=== PATIENT | female | born 1960 | race Caucasian/White ===

== ENCOUNTER 2018-05-05 13:24 | Emergency (ER) | payer OTHER ==
--- OUTSIDE RECORDS SUMMARY | 2018-05-05 13:26 | XMS REPORT ---
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 Problem Tinea unguium B35.1 Active Assessment Memory changes R41.3 Active Assessment Dysthymic disorder F34.1 Active Problem Age-related nuclear cataract of both H25.13 Active eyes Problem Hematuria, microscopic R31.29 Active Problem Memory changes R41.3 Active Problem Essential (primary) hypertension I10 Active Problem Dysthymic disorder F34.1 Active Problem Type 2 diabetes mellitus without E11.9 Active complication, 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 Problem Other insomnia 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.09 Active substance or known physiological condition Medications Medication Code Code Instructions Start End Status Dosage System Date Date Trulicity [facility] [id number] 1.5 MG/0.5ML Jul 12May 06, Active 1.5 mg Subcutaneous 2015 2017 once weekly FreeStyle Lite [facility] [id number] - In Vitro once October Active as directed Test daily 2017 Sertraline HCl ND 32399906689 50 MG Orally October Active take one Once a day 2016 tablet by mouth daily Metformin HCl ND 92592510199 1000 MG Orally Sep 11, Active 1 tablet Twice a day 2015 with meals Farxiga ND 26171423962 10 MG Active TAKE ONE TABLET BY MOUTH EVERY MORNING Cymbalta ND 64320552740 60 Orally Once a Active take one day capsule by mouth daily Zestoretic ND 26328267079 20-12.5 Active TAKE ONE TABLET BY MOUTH DAILY Results No Known Results Summary Purpose eClinicalWorks Submission
--- OUTSIDE RECORDS SUMMARY | 2018-05-05 13:26 | XMS REPORT ---
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
--- OUTSIDE RECORDS SUMMARY | 2018-05-05 13:26 | XMS REPORT ---
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
--- OUTSIDE RECORDS SUMMARY | 2018-05-05 13:26 | XMS REPORT ---
:1960 Author Organization e[employer]Works Care Team Providers Name Role Phone PascoMiranda cárdenasy Provider Role Unavailable Allergies No Known Allergies Problems Problem Type Condition Code Onset Dates Condition Status Problem Tinea unguium B35.1 Active Problem Age-related nuclear cataract of both H25.13 Active eyes Problem Hematuria, microscopic R31.29 Active Problem Memory changes R41.3 Active Problem Essential (primary) hypertension I10 Active Problem Dysthymic disorder F34.1 Active Problem Type 2 diabetes mellitus without E11.9 Active complication, unspecified whether snf insulin use Problem Other insomnia 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.09 Active substance or known physiological condition Medications No Known Medications Results No Known Results Summary Purpose eClinicalWorks Submission
[2018-05-05] MEDS ORDERED: MORPHINE 4 MG/ML SYR ONE (13:59)
[2018-05-05] MEDS ORDERED: FAMOTIDINE 20 MG/2 ML VIAL IV ONE (13:59)
[2018-05-05] MEDS ORDERED: NA CHLORIDE 0.9% 1,000 ML ONE (13:59)
[2018-05-05] MEDS ORDERED: ONDANSETRON 4 MG/2 ML VIAL ONE ×2 (13:59→15:05)
[2018-05-05 14:19] LABS: Absolute Lymphocytes (CBC) 2.7 K/uL (0.7-4.9); Absolute Monocytes 0.8 K/uL (0.1-1.3); Absolute Neutrophil 11.9 K/uL (1.8-8.0); Basophils % 0.5 % (0-1.3); Eosinophils % 0.8 % (0-4.4); Hematocrit 47.8 % (36.0-45.0); Lymphocytes % 17.1 % (15.3-44.8); MCH 30.5 pg (27.0-35.0); MPV 11.5 fL (7.6-11.3); Monocytes % 5.2 % (3.3-12.3); RBC Red Blood Cell Count 5.25 M/uL (3.86-4.86)
[2018-05-05 14:41] LABS: Albumin 4.6 g/dL (3.4-5.0); Bilirubin Direct 0.3 mg/dL (0-0.2); Bilirubin Total 1.2 mg/dL (0.2-1.0); Potassium 3.8 mmol/L (3.5-5.1)
[2018-05-05] MEDS ORDERED: FENTANYL CITR 100 MCG/2 ML ONE (15:05)
[2018-05-05] MEDS ORDERED: Ciprofloxacin 200mg IV 200 MG/100 ML IV.SOLN. IV ONE (15:05)
[2018-05-05] MEDS ORDERED: METRONIDAZOLE 500mg IVPB 500 MG/100 ML BAG IV ONE (15:05)
[2018-05-05] MEDS ORDERED: PIPER/TAZO/NS 3.375gm 3.375 GM/100 ML BAG ONE (15:19)
--- NOTE | 2018-05-05 15:39 | RAD REPORT ---
EXAM DESCRIPTION: CTAbdomen Pelvis W Contrast - 05/05/2018 3:26 pm CLINICAL HISTORY: Abdominal pain. ABD PAIN COMPARISON: CT ABD PELVIS W CONTRAST dated 01/21/2015; CT ABD PELVIS W CONTRAST dated 11/02/2012 TECHNIQUE: Biphasic CT imaging of the abdomen and pelvis was performed with 100 ml non-ionic IV cont rast. All CT scans are performed using dose optimization technique as appropriate and may include automated exposure control or mA/KV adjustment according to patient size. FINDINGS: The lung bases are clear. Mild fatty liver is seen with nodular liver contour, likely representing cirrhosis. Cholecystectomy c lips are present. A few small esophageal varices are seen. The spleen, adrenal glands and kidneys are within normal limits. Pancreatic parenchyma is unremarkable. The common bile duct is mildly prominen t but unchanged. No bowel obstruction, free air, free fluid or abscess. Small fat containing ventral hernia. The appen zofia is normal. Moderate fecal retention in the colon. No evidence of significant lymphadenopathy. Moderate lower lumbar spondylosis. Small amount of air is seen in the wall of the bladder anteriorly, similar to 2015 comparative study. IMPRESSION: Mild liver cirrhosis. Moderate fecal retention in the colon. Small fat containing umbilical hernia.
[2018-05-05] MEDS ORDERED: NA CHLORIDE 0.9% 500 ML ONE (15:42)
[2018-05-05] MEDS ORDERED: METOCLOPRAMIDE 10 MG/2mL INJ ONE ×2 (15:42→17:08)
--- NOTE | 2018-05-05 16:52 | EDPHYS ---
Physician Documentation [facility] Name: Ester Akins Age: 58 yrs Sex: Female : 1960 Arrival Date: 05/05/2018 Time: 13:27 Bed 17 Private MD: Rafael Schafer ED Physician Sebastián Beavers HPI: 05/05 23:51 This 58 yrs old Female presents to ER via Wheelchair with complaints of kdr Nausea/Vomiting, Abdominal Pain. 23:51 The patient presents to the emergency department with nausea, that is moderate, that is kdr severe, vomiting, that is intermittent, abdominal pain, described as achy, crampy, intermittent. Onset: The symptoms/episode began/occurred suddenly, 3 day(s) ago. Possible causes: unknown. The symptoms are aggravated by pressure, food , The symptoms are alleviated by nothing. Associated signs and symptoms: Pertinent positives: abdominal pain, nausea, Pertinent negatives: anorexia, belching, constipation, flatulence, GI bleeding, hematuria, vaginal discharge. Severity of symptoms: At their worst the symptoms were severe in the emergency department the symptoms. The patient has not experienced similar symptoms in the past. The patient has not recently seen a physician. Historical: - Allergies: 13:34 No Known Allergies; aj - PMHx: 13:34 Diabetes - IDDM; aj - Immunization history:: Adult Immunizations up to date. - Social history:: Smoking status: unknown. - Ebola Screening: : Patient negative for fever greater than or equal to 101.5 degrees Fahrenheit, and additional compatible Ebola Virus Disease symptoms Patient denies exposure to infectious person Patient denies travel to an Ebola-affected area in the 21 days before illness onset No symptoms or risks identified at this time. ROS: 23:51 Constitutional: Negative for fever, chills, and weight loss, Eyes: Negative for injury, kdr pain, redness, and discharge, ENT: Negative for injury, pain, and discharge, Neck: Negative for injury, pain, and swelling, Cardiovascular: Negative for chest pain, palpitations, and edema, Respiratory: Negative for shortness of breath, cough, wheezing, and pleuritic chest pain, Back: Negative for injury and pain, : Negative for injury, bleeding, discharge, and swelling, MS/Extremity: Negative for injury and deformity, Skin: Negative for injury, rash, and discoloration, Neuro: Negative for headache, weakness, numbness, tingling, and seizure activity. Psych: Negative for depression, anxiety, suicide ideation, homicidal ideation, and hallucinations, Allergy/Immunology: Negative for hives, rash, and allergies, Endocrine: Negative for neck swelling, polydipsia, polyuria, polyphagia, and marked weight changes, Hematologic/Lymphatic: Negative for swollen nodes, abnormal bleeding, and unusual bruising. 23:51 Abdomen/GI: Positive for abdominal pain, nausea and vomiting, abdominal cramps. Exam: 23:51 Constitutional: This is a well developed, well nourished patient who is awake, alert, kdr and in moderate to severe distress. Head/Face: Normocephalic, atraumatic. Eyes: Pupils equal round and reactive to light, extra-ocular motions intact. Lids and lashes normal. Conjunctiva and sclera are non-icteric and not injected. Cornea within normal limits. Periorbital areas with no swelling, redness, or edema. Neck: Trachea midline, no thyromegaly or masses palpated, and no cervical lymphadenopathy. Supple, full range of motion without nuchal rigidity, or vertebral point tenderness. No Meningismus. Chest/axilla: Normal chest wall appearance and motion. Nontender with no deformity. No lesions are appreciated. Cardiovascular: Regular rate and rhythm with a normal S1 and S2. No gallops, murmurs, or rubs. Normal PMI, no JVD. No pulse deficits. Respiratory: Lungs have equal breath sounds bilaterally, clear to auscultation and percussion. No rales, rhonchi or wheezes noted. No increased work of breathing, no retractions or nasal flaring. Back: No spinal tenderness. No costovertebral tenderness. Full range of motion. Skin: Warm, dry with normal turgor. Normal color with no rashes, no lesions, and no evidence of cellulitis. MS/ Extremity: Pulses equal, no cyanosis. Neurovascular intact. Full, normal range of motion. Neuro: Awake and alert, GCS 15, oriented to person, place, time, and situation. Cranial nerves II-XII grossly intact. Motor strength 5/5 in all extremities. Sensory grossly intact. Cerebellar exam normal. Normal gait. Psych: Awake, alert, with orientation to person, place and time. Behavior, mood, and affect are within normal limits. 23:51 Abdomen/GI: Inspection: abdomen appears normal, scar(s), are noted in the suprapubic area. Vital Signs: 13:34 BP 147 / 107; Pulse 91; Resp 26; Temp 96.6; Pulse Ox 100% on R/A; Weight 83.91 kg; aj Height 5 ft. 8 in. (172.72 cm); 14:02 BP 133 / 91; Pulse 95; Resp 18; Pulse Ox 99% on R/A; em 15:00 BP 134 / 80; Pulse 96; Resp 19; Pulse Ox 97% on R/A; iw 16:38 BP 137 / 79; Pulse 107; Resp 18; Temp 98.1(O); Pulse Ox 100% on R/A; Pain 5/10; iw 17:56 BP 141 / 78; Pulse 97; Resp 16; Pulse Ox 100% on R/A; Pain 4/10; em 13:34 Body Mass Index 28.13 (83.91 kg, 172.72 cm) aj MDM: 16:51 Patient medically screened. kdr 23:51 Data reviewed: vital signs, nurses notes, lab test result(s), radiologic studies. kdr Counseling: I had a detailed discussion with the patient and/or guardian regarding: the historical points, exam findings, and any diagnostic results supporting the discharge/admit diagnosis, lab results, radiology results, the need for outpatient follow up. Special discussion: Based on the patient's Hx, exam, and Dx evaluation, there is no indication for emergent surgery or inpatient Tx. It is understood by the patient/guardian that if the Sx's persist or worsen they need to return immediately for re-evaluation. 05/05 13:52 Order name: Basic Metabolic Panel kdr 05/05 13:52 Order name: CBC with Diff; Complete Time: 14:52 kdr 05/05 13:52 Order name: Creatinine for Radiology; Complete Time: 14:52 kdr 05/05 13:52 Order name: Hepatic Function kdr 05/05 13:52 Order name: Lipase; Complete Time: 14:52 kdr 05/05 13:52 Order name: Basic Metabolic Panel; Complete Time: 14:52 EDMS 05/05 13:52 Order name: Liver (Hepatic) Function; Complete Time: 14:52 EDMS 05/05 14:53 Order name: CT Abd/Pelvis - W/Contrast; Complete Time: 16:19 kdr 05/05 13:52 Order name: IV Saline Lock; Complete Time: 14:01 kdr 05/05 13:52 Order name: Labs collected and sent; Complete Time: 14:01 kdr Administered Medications: 14:00 Drug: Zofran 4 mg Route: IVP; Site: left antecubital; iw 15:11 Follow up: Response: No adverse reaction; Nausea unchanged em 14:00 Drug: morphine 4 mg Route: IVP; Site: left antecubital; iw 15:11 Follow up: Response: No adverse reaction; Pain is decreased em 14:00 Drug: Pepcid 20 mg Route: IVP; Site: left antecubital; iw 15:12 Follow up: Response: No adverse reaction em 14:01 Drug: NS 0.9% 1000 ml Route: IV; Rate: 1 bolus; Site: left antecubital; em 15:30 Follow up: IV Status: Completed infusion; IV Intake: 1000ml em 15:10 Drug: fentaNYL (PF) 50 mcg Route: IVP; Site: left antecubital; iw 16:57 Follow up: Response: No adverse reaction; Pain is unchanged, physician notified em 15:11 Drug: Zosyn 3.375 grams Route: IVPB; Infused Over: 60 mins; Site: left antecubital; em 17:12 Follow up: Response: No adverse reaction; IV Status: Completed infusion; IV Intake: em 100ml 15:11 Drug: Flagyl 500 mg Volume: 100 ml; Route: IVPB; Rate: 200 ml/hr; Infused Over: 30 em mins; Site: left antecubital; 16:56 Follow up: Response: No adverse reaction; IV Status: Completed infusion; IV Intake: em 100ml 15:11 Drug: Zofran 4 mg Route: IVP; Site: left antecubital; em 16:56 Follow up: Response: No adverse reaction; Nausea unchanged em 15:45 Drug: NS 0.9% 500 ml Route: IV; Rate: bolus; Site: left antecubital; em 17:30 Follow up: IV Status: Completed infusion; IV Intake: 500ml em 15:45 Drug: Reglan 10 mg Route: IVP; Site: left antecubital; iw 16:56 Follow up: Response: No adverse reaction; Nausea unchanged em 17:12 Drug: Lactulose 30 grams Volume: 45 ml; Route: PO; em 17:54 Follow up: Response: No adverse reaction em 17:12 Drug: fentaNYL (PF) 50 mcg Route: IVP; Site: left antecubital; em 17:55 Follow up: Response: No adverse reaction; Pain is decreased em 17:12 Drug: Reglan 10 mg Route: IVP; Site: left antecubital; em 17:55 Follow up: Response: No adverse reaction; Nausea is decreased em Point of Care Testing: Blood Glucose: 14:02 Blood Glucose: 184 mg/dL; em Ranges: Critical Glucose Levels:Adult <50 mg/dl or >400 mg/dl <40 mg/dl or >180 mg/dl Disposition: 05/05/18 16:51 Discharged to Home. Impression: Vomiting, Constipation, unspecified. - Condition is Stable. - Discharge Instructions: Constipation, Adult, [id number], Nausea and Vomiting, Adult, [id number]. - Prescriptions for Pepcid 20 mg Oral Tablet - take 1 tablet by ORAL route every 12 hours for 5 days; 10 tablet. Tramadol 50 mg Oral Tablet - take 1 tablet by ORAL route every 8 hours as needed; 12 tablet. Miralax 17 gram/dose Oral - take 1 packet by ORAL route once daily As needed dilute powder in 8 ounces of water or juice; 1 box. Reglan 10 mg Oral Tablet - take 1 tablet by ORAL route every 6 hours take 30 minutes before meals and at bedtime; 20 tablet. - Medication Reconciliation Form, Thank You Letter form. - Follow up: Rafael Schafer MD; When: 2 - 3 days; Reason: If symptoms return, Further diagnostic work-up, Recheck today's complaints, Continuance of care, Re-evaluation by your physician. - Problem is new. - Symptoms have improved. Signatures: Dispatcher [employer] Macie Lowry RN RN aj Rittger, Kevin, MD MD kdr Munoz, Edgar, PSYCHOLOGIST COUNSELING PSYCHOLOGIST COUNSELING em Izabella Mejia RN RN iw Corrections: (The following items were deleted from the chart) 18:01 16:51 05/05/2018 16:51 Discharged to Home. Impression: Vomiting; Constipation, em unspecified. Condition is Stable. Forms are Medication Reconciliation Form, Thank You Letter, Antibiotic Education, Prescription Opioid Use. Follow up: Rafael Schafer; When: 2 - 3 days; Reason: If symptoms return, Further diagnostic work-up, Recheck today's complaints, Continuance of care, Re-evaluation by your physician. Problem is new. Symptoms have improved. kdr
--- NOTE | 2018-05-05 16:52 | ER ---
Nurse's Notes [facility] Name: Ester Akins Age: 58 yrs Sex: Female : 1960 Arrival Date: 05/05/2018 Time: 13:27 Bed 17 Private MD: Rafael Schafer Diagnosis: Vomiting;Constipation, unspecified Presentation: 05/05 13:32 Presenting complaint: Patient states: Vomiting x 2 days, unable to eat for 3 days. aj Patient is diaphoretic in triage and vomiting. Transition of care: patient was not received from another setting of care. Onset of symptoms was May 02, 2018. Risk Assessment: Do you want to hurt yourself or someone else? Patient reports no desire to harm self or others. Initial Sepsis Screen: Does the patient meet any 2 criteria? No. Patient's initial sepsis screen is negative. Does the patient have a suspected source of infection? No. Patient's initial sepsis screen is negative. Care prior to arrival: None. 13:32 Method Of Arrival: Wheelchair 13:32 Acuity: DEDRA 2 aj Triage Assessment: 13:34 General: Appears in no apparent distress. uncomfortable, Behavior is anxious, Smells of aj ketones. Neuro: Level of Consciousness is awake, alert, obeys commands, Oriented to person, place, time, situation, Appropriate for age. Respiratory: Airway is patent Respiratory effort is even, unlabored, Respiratory pattern is hyperventilation. GI: Reports nausea, vomiting. Derm: Skin is diaphoretic, Skin temperature is cool. Historical: - Allergies: 13:34 No Known Allergies; aj - PMHx: 13:34 Diabetes - IDDM; aj - Immunization history:: Adult Immunizations up to date. - Social history:: Smoking status: unknown. - Ebola Screening: : Patient negative for fever greater than or equal to 101.5 degrees Fahrenheit, and additional compatible Ebola Virus Disease symptoms Patient denies exposure to infectious person Patient denies travel to an Ebola-affected area in the 21 days before illness onset No symptoms or risks identified at this time. Screenin:00 Abuse screen: Denies threats or abuse. Nutritional screening: No deficits noted. em Tuberculosis screening: No symptoms or risk factors identified. Fall Risk None identified. Assessment: 14:00 General: Appears in no apparent distress. uncomfortable, ill, Behavior is calm. Pain: iw Complains of pain in abdomen. Neuro: Level of Consciousness is awake, alert, obeys commands, Oriented to person, place, time, situation. Cardiovascular: Denies chest pain, Capillary refill < 3 seconds. Respiratory: Airway is patent Respiratory effort is even, unlabored, Respiratory pattern is regular, symmetrical. GI: Abdomen is round Bowel sounds present X 4 quads. Abd is soft X 4 quads Abdomen is tender to palpation in left upper quadrant Reports constipation, nausea, vomiting. : No signs and/or symptoms were reported regarding the genitourinary system. EENT: No signs and/or symptoms were reported regarding the EENT system. Derm: Skin is intact, Skin is clammy, Skin is normal. Musculoskeletal: Range of motion: intact in all extremities. 15:00 Reassessment: Patient appears in no apparent distress at this time. Patient and/or iw family updated on plan of care and expected duration. Pain level reassessed. pt reports nausea, provider notified. 16:43 Reassessment: Patient appears in no apparent distress at this time. Patient and/or iw family updated on plan of care and expected duration. Pain level reassessed. Patient is alert, oriented x 3, equal unlabored respirations, skin warm/dry/pink. Dr. Beavers at bedside discussing POC Patient states feeling better. Patient states symptoms have improved. 17:00 Reassessment: Patient appears in no apparent distress at this time. Patient and/or em family updated on plan of care and expected duration. Pain level reassessed. Patient is alert, oriented x 3, equal unlabored respirations, skin warm/dry/pink. 17:57 Reassessment: Patient appears in no apparent distress at this time. Patient and/or em family updated on plan of care and expected duration. Pain level reassessed. Patient is alert, oriented x 3, equal unlabored respirations, skin warm/dry/pink. Patient states feeling better. Patient states symptoms have improved. Vital Signs: 13:34 BP 147 / 107; Pulse 91; Resp 26; Temp 96.6; Pulse Ox 100% on R/A; Weight 83.91 kg; aj Height 5 ft. 8 in. (172.72 cm); 14:02 BP 133 / 91; Pulse 95; Resp 18; Pulse Ox 99% on R/A; em 15:00 BP 134 / 80; Pulse 96; Resp 19; Pulse Ox 97% on R/A; iw 16:38 BP 137 / 79; Pulse 107; Resp 18; Temp 98.1(O); Pulse Ox 100% on R/A; Pain 5/10; iw 17:56 BP 141 / 78; Pulse 97; Resp 16; Pulse Ox 100% on R/A; Pain 4/10; em 13:34 Body Mass Index 28.13 (83.91 kg, 172.72 cm) aj ED Course: 13:27 Patient arrived in ED. mr 13:28 Rafael Schafer MD is Private Physician. mr 13:34 Triage completed. aj 13:34 Arm band placed on right wrist. Patient placed in an exam room. aj 13:40 Sebastián Beavers MD is Attending Physician. kdr 13:40 David Cruz LVN is Primary Nurse. em 14:00 Patient has correct armband on for positive identification. Bed in low position. Call em light in reach. Adult w/ patient. 14:00 Initial lab(s) drawn, by me, sent to lab. Inserted saline lock: 20 gauge in left em antecubital area, using aseptic technique. Blood collected. 15:26 CT Abd/Pelvis - W/Contrast In Process Unspecified. EDMS 16:51 Rafael Schafer MD is Referral Physician. kdr 18:00 No provider procedures requiring assistance completed. IV discontinued, intact, em bleeding controlled, No redness/swelling at site. Pressure dressing applied. Administered Medications: 14:00 Drug: Zofran 4 mg Route: IVP; Site: left antecubital; iw 15:11 Follow up: Response: No adverse reaction; Nausea unchanged em 14:00 Drug: morphine 4 mg Route: IVP; Site: left antecubital; iw 15:11 Follow up: Response: No adverse reaction; Pain is decreased em 14:00 Drug: Pepcid 20 mg Route: IVP; Site: left antecubital; iw 15:12 Follow up: Response: No adverse reaction em 14:01 Drug: NS 0.9% 1000 ml Route: IV; Rate: 1 bolus; Site: left antecubital; em 15:30 Follow up: IV Status: Completed infusion; IV Intake: 1000ml em 15:10 Drug: fentaNYL (PF) 50 mcg Route: IVP; Site: left antecubital; iw 16:57 Follow up: Response: No adverse reaction; Pain is unchanged, physician notified em 15:11 Drug: Zosyn 3.375 grams Route: IVPB; Infused Over: 60 mins; Site: left antecubital; em 17:12 Follow up: Response: No adverse reaction; IV Status: Completed infusion; IV Intake: em 100ml 15:11 Drug: Flagyl 500 mg Volume: 100 ml; Route: IVPB; Rate: 200 ml/hr; Infused Over: 30 em mins; Site: left antecubital; 16:56 Follow up: Response: No adverse reaction; IV Status: Completed infusion; IV Intake: em 100ml 15:11 Drug: Zofran 4 mg Route: IVP; Site: left antecubital; em 16:56 Follow up: Response: No adverse reaction; Nausea unchanged em 15:45 Drug: NS 0.9% 500 ml Route: IV; Rate: bolus; Site: left antecubital; em 17:30 Follow up: IV Status: Completed infusion; IV Intake: 500ml em 15:45 Drug: Reglan 10 mg Route: IVP; Site: left antecubital; iw 16:56 Follow up: Response: No adverse reaction; Nausea unchanged em 17:12 Drug: Lactulose 30 grams Volume: 45 ml; Route: PO; em 17:54 Follow up: Response: No adverse reaction em 17:12 Drug: fentaNYL (PF) 50 mcg Route: IVP; Site: left antecubital; em 17:55 Follow up: Response: No adverse reaction; Pain is decreased em 17:12 Drug: Reglan 10 mg Route: IVP; Site: left antecubital; em 17:55 Follow up: Response: No adverse reaction; Nausea is decreased em Point of Care Testing: Blood Glucose: 14:02 Blood Glucose: 184 mg/dL; em Ranges: Intake: 15:30 IV: 1000ml; Total: 1000ml. em 16:56 IV: 100ml; Total: 1100ml. em 17:12 IV: 100ml; Total: 1200ml. em 17:30 IV: 500ml; Total: 1700ml. em Outcome: 16:51 Discharge ordered by . kdr 18:00 Discharged to home ambulatory, with family. em 18:00 Condition: good 18:00 Discharge instructions given to patient, family, Instructed on discharge instructions, follow up and referral plans. medication usage, Demonstrated understanding of instructions, follow-up care, medications, Prescriptions given X 4. 18:01 Patient left the ED. em Signatures: Dispatcher [employer] Macie Lowry, RN RN Sebastián Virgen MD MD kdr Rivera Ester mr Anthony, David, OPERATIVE SUPERVISOR OPERATIVE SUPERVISOR Izabella Bloom RN RN iw
[2018-05-05] MEDS ORDERED: LACTULOSE 20 GM/30 ML UCUP ONE ×2 (17:08→17:21)
[2018-05-05 18:22] VITALS: TEMP 98.1; O2SAT 100
[2018-05-05 18:23] VITALS: BP 141/78
== END 2018-05-05 18:01 | disposition home or self-care (01) ==
LOC: ER 13:24
DX: K59.00 Constipation, unspecified (principal)
CPT/HCPCS: 36415; 74177; 80048; 80076; 82962; 83690; 85025; 96361; 96365; 96366; 96368; 96375; 99284; J0744; J2405; J2543; J2765; J3010; J7030; Q9967

== ENCOUNTER 2018-05-08 08:49 | Inpatient (IN) | payer OTHER ==
--- OUTSIDE RECORDS SUMMARY | 2018-05-08 08:51 | XMS REPORT ---
:1960 Author Organization eClinicalWorks Care Team Providers Name Role Phone New KentMiranda cárdenasy Provider Role Unavailable Allergies No Known Allergies Problems Problem Type Condition Code Onset Dates Condition Status Problem Tinea unguium B35.1 Active Problem Age-related nuclear cataract of both H25.13 Active eyes Problem Hematuria, microscopic R31.29 Active Problem Memory changes R41.3 Active Problem Essential (primary) hypertension I10 Active Problem Dysthymic disorder F34.1 Active Problem Type 2 diabetes mellitus without E11.9 Active complication, unspecified whether halfway insulin use Problem Other insomnia 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.09 Active substance or known physiological condition Medications No Known Medications Results No Known Results Summary Purpose eClinicalWorks Submission
--- OUTSIDE RECORDS SUMMARY | 2018-05-08 08:51 | XMS REPORT ---
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 insulin use Problem Tinea unguium B35.1 Active Assessment Memory changes R41.3 Active Assessment Dysthymic disorder F34.1 Active Problem Age-related nuclear cataract of both H25.13 Active eyes Problem Hematuria, microscopic R31.29 Active Problem Memory changes R41.3 Active Problem Essential (primary) hypertension I10 Active Problem Dysthymic disorder F34.1 Active Problem Type 2 diabetes mellitus without E11.9 Active complication, unspecified whether terminal worker insulin use Problem Other insomnia 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.09 Active substance or known physiological condition Medications Medication Code Code Instructions Start End Status Dosage System Date Date Trulicity [facility] 51074308438 1.5 MG/0.5ML Jul 12May 06, Active 1.5 mg Subcutaneous 2015 2017 once weekly FreeStyle Lite [facility] 92804151310 - In Vitro once October Active as directed Test daily 2017 Sertraline HCl ND 45227778778 50 MG Orally October Active take one Once a day 2016 tablet by mouth daily Metformin HCl ND 86026657129 1000 MG Orally Sep 11, Active 1 tablet Twice a day 2015 with meals Farxiga ND 83774241687 10 MG Active TAKE ONE TABLET BY MOUTH EVERY MORNING Cymbalta ND 07313806543 60 Orally Once a Active take one day capsule by mouth daily Zestoretic ND 59943062286 20-12.5 Active TAKE ONE TABLET BY MOUTH DAILY Results No Known Results Summary Purpose eClinicalWorks Submission
--- OUTSIDE RECORDS SUMMARY | 2018-05-08 08:51 | XMS REPORT ---
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
--- OUTSIDE RECORDS SUMMARY | 2018-05-08 08:52 | XMS REPORT ---
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
[2018-05-08] MEDS ORDERED: ONDANSETRON 4 MG/2 ML VIAL ONE ×3 (09:17→14:34)
[2018-05-08] MEDS ORDERED: NA CHLORIDE 0.9% 1,000 ML ONE ×2 (09:17→10:35)
[2018-05-08 09:31] LABS: Absolute Lymphocytes (CBC) 1.7 K/uL (0.7-4.9); Absolute Monocytes 0.8 K/uL (0.1-1.3); Basophils % 0.3 % (0-1.3); Hematocrit 46.8 % (36.0-45.0); Lymphocytes % 12.7 % (15.3-44.8); MCH 30.5 pg (27.0-35.0); MCV 90.5 fL (80-100); MPV 10.1 fL (7.6-11.3); RBC Red Blood Cell Count 5.18 M/uL (3.86-4.86)
[2018-05-08 09:55] LABS: Albumin 4.5 g/dL (3.4-5.0); Bilirubin Direct 0.3 mg/dL (0-0.2); Potassium 3.6 mmol/L (3.5-5.1); Protein, Total 9.3 g/dL (6.4-8.2)
[2018-05-08] MEDS ORDERED: FENTANYL CITR 100 MCG/2 ML ONE (09:58)
--- NOTE | 2018-05-08 12:35 | RAD REPORT ---
EXAM DESCRIPTION: CTAbdomen Pelvis W Contrast - 05/08/2018 12:27 pm CLINICAL HISTORY: Abdominal pain. ABD PAIN COMPARISON: Abdomen Pelvis W Contrast dated 05/05/2018; CT ABD PELVIS W CONTRAST dated 01/21/2015; CT ABD PELVIS W CONTRAST dated 11/02/2012 TECHNIQUE: Biphasic CT imaging of the abdomen and pelvis was performed with 100 ml non-ionic IV cont rast. All CT scans are performed using dose optimization technique as appropriate and may include automated exposure control or mA/KV adjustment according to patient size. FINDINGS: The lung bases are clear.Esophageal varices are noted with a small to moderate hiatal zulay ia. Fatty liver is seen with nodular contour affecting the liver parenchyma. The spleen, pancreas, adrena l glands and kidneys are within normal limits. No bowel obstruction, free air, free fluid or abscess. Small ventral hernia is seen along the left as pect of the abdomen containing only fat. The appendix is normal. No evidence of significant lymphade nopathy. No suspicious bony findings. IMPRESSION: Mild liver cirrhosis is identified with fatty infiltration. Esophageal varices with small to moderate hiatal hernia.
--- NOTE | 2018-05-08 13:20 | ER ---
Nurse's Notes [facility] Name: Ester Akins Age: 58 yrs Sex: Female : 1960 Arrival Date: 05/08/2018 Time: 08:52 Bed 7 Private MD: JOLANTA SELF Diagnosis: Intractable nausea and vomiting;Abdominal and pelvic pain;Dehydration Presentation: 05/08 08:57 Presenting complaint: Patient states: n/v x 1 day. Pt was seen here Tuesday, had CT-abd sv done and was told she possibly had the start of a bowel obstruction and was discharged home. Pt took 2 suppositories and has had 2 small BMs. Transition of care: patient was not received from another setting of care. Onset of symptoms was May 07, 2018. Care prior to arrival: None. 08:57 Method Of Arrival: Wheelchair sv 08:57 Acuity: DEDRA 3 sv 10:57 Risk Assessment: Do you want to hurt yourself or someone else? Patient reports no tw2 desire to harm self or others. Initial Sepsis Screen: Does the patient have a suspected source of infection? No. Patient's initial sepsis screen is negative. Initial Sepsis Screen: Does the patient meet any 2 criteria? No. Patient's initial sepsis screen is negative. Triage Assessment: 08:57 General: Appears uncomfortable, Behavior is cooperative, appropriate for age. Pain: sv Denies pain. Neuro: Level of Consciousness is awake, alert, obeys commands, Oriented to person, place, time, situation, Moves all extremities. Respiratory: Respiratory effort is even, unlabored, Respiratory pattern is regular, symmetrical. GI: Reports nausea, vomiting. Historical: - Allergies: 09:04 No Known Allergies; sv - PMHx: 09:04 Diabetes - IDDM; sv - Immunization history:: Adult Immunizations. - Social history:: Smoking status: . - Ebola Screening: : Patient denies travel to an Ebola-affected area in the 21 days before illness onset. Screenin:53 Abuse screen: Denies threats or abuse. Nutritional screening: No deficits noted. tw2 Tuberculosis screening: No symptoms or risk factors identified. Fall Risk None identified. Assessment: 09:00 General: Appears uncomfortable, Behavior is calm, cooperative, appropriate for age. tw2 Pain: Complains of pain in abdomen. Neuro: Level of Consciousness is awake, alert, obeys commands, Oriented to person, place, time, situation. Cardiovascular: Heart tones S1 S2 Patient's skin is warm and dry. Respiratory: Airway is patent Respiratory effort is even, unlabored, Respiratory pattern is regular, symmetrical. GI: Abdomen is flat, Bowel sounds present X 4 quads. Reports nausea, vomiting. : No signs and/or symptoms were reported regarding the genitourinary system. EENT: No signs and/or symptoms were reported regarding the EENT system. Derm: No signs and/or symptoms reported regarding the dermatologic system. Musculoskeletal: Range of motion: intact in all extremities. 09:53 Reassessment: Patient and/or family updated on plan of care and expected duration. Pain aa5 level reassessed. Patient is alert, oriented x 3, equal unlabored respirations, skin warm/dry/pink. Pt states "I am still nauseated" . Pain: Pain currently is 4 out of 10 on a pain scale. 11:38 Reassessment: Patient and/or family updated on plan of care and expected duration. Pain tw2 level reassessed. Patient is alert, oriented x 3, equal unlabored respirations, skin warm/dry/pink. 12:38 Reassessment: Patient and/or family updated on plan of care and expected duration. Pain tw2 level reassessed. Patient is alert, oriented x 3, equal unlabored respirations, skin warm/dry/pink. 13:38 Reassessment: Patient and/or family updated on plan of care and expected duration. Pain tw2 level reassessed. Patient is alert, oriented x 3, equal unlabored respirations, skin warm/dry/pink. 14:38 Reassessment: pt c/o nausea at this time, medicated as ordered. tw2 15:52 Reassessment: Patient and/or family updated on plan of care and expected duration. Pain tw2 level reassessed. Patient is alert, oriented x 3, equal unlabored respirations, skin warm/dry/pink. Vital Signs: 09:02 BP 155 / 78; Pulse 97; Resp 18; Pulse Ox 98% on R/A; tw2 09:04 Temp 97; Weight 83.91 kg; Height 5 ft. 8 in. (172.72 cm); Pain 0/10; sv 10:26 BP 151 / 85; Pulse 117; Resp 18; Pulse Ox 98% on R/A; tw2 11:55 BP 132 / 80; Pulse 103; Resp 17; Pulse Ox 100% on R/A; tw2 12:10 BP 117 / 72; Pulse 62; Resp 17; Pulse Ox 99% on R/A; tw2 12:47 BP 135 / 83; Pulse 108; Resp 17; Pulse Ox 98% on R/A; tw2 13:50 BP 122 / 83; Pulse 109; Resp 17; Pulse Ox 98% on R/A; tw2 14:38 BP 115 / 74; Pulse 102; Resp 17; Pulse Ox 97% on R/A; tw2 09:04 Body Mass Index 28.13 (83.91 kg, 172.72 cm) sv ED Course: 08:52 Patient arrived in ED. sb2 08:53 JOLANTA SELF is Private Physician. sb2 08:56 David Roldan PA is PHCP. jr8 08:56 Diogenes Rodriguez MD is Attending Physician. jr8 08:57 Arm band placed on Patient placed in an exam room, on a stretcher, on pulse oximetry. sv 09:00 Bed in low position. Call light in reach. Adult w/ patient. Pulse ox on. NIBP on. tw2 09:02 Ade Aburto RN is Primary Nurse. tw2 09:04 Triage completed. sv 09:22 Initial lab(s) drawn, by me, sent to lab. Inserted saline lock: 22 gauge in right em1 forearm, using aseptic technique. Blood collected. 10:40 Inserted saline lock: 22 gauge in left antecubital area, using aseptic technique. IV tw2 discontinued, intact, bleeding controlled, No redness/swelling at site. Pressure dressing applied, infiltration noted to RIGHT FOREARM, warm compress and pressure dressing applied. 12:27 CT Abd/Pelvis - W/Contrast In Process Unspecified. EDMS 12:42 Dorita Oden MD is Hospitalizing Provider. jr8 14:35 Inserted saline lock: 20 gauge in right antecubital area, using aseptic technique. hb 15:22 Awaiting: attempted to call report, was told that JASIEL Dubose needed to call me back in tw2 5 minutes. 15:51 No provider procedures requiring assistance completed. Patient admitted, IV remains in tw2 place. Administered Medications: 09:18 Drug: Zofran 4 mg Route: IVP; Site: right forearm; tw2 09:53 Follow up: Response: No adverse reaction aa5 09:18 Drug: NS 0.9% 1000 ml Route: IV; Rate: 1000 ml; Site: right forearm; tw2 15:21 Follow up: Response: No adverse reaction; IV Status: Completed infusion; IV Intake: tw2 1000ml 09:53 Drug: fentaNYL (PF) 25 mcg Route: IVP; Site: right forearm; aa5 10:46 Follow up: Response: No adverse reaction; No change in condition; Pain is unchanged, tw2 physician notified 10:40 Drug: fentaNYL (PF) 50 mcg Route: IVP; Site: left antecubital; tw2 11:54 Follow up: Response: No adverse reaction; Pain is decreased tw2 10:46 Drug: NS 0.9% 1000 ml Route: IV; Rate: 1000 ml; Site: left antecubital; tw2 15:53 Follow up: Response: No adverse reaction; IV Status: Infusion continued upon admission tw2 12:16 Drug: Zofran 4 mg Route: IVP; Site: left antecubital; aa5 13:00 Follow up: Response: No adverse reaction tw2 12:38 Drug: fentaNYL (PF) 25 mcg Route: IVP; Site: left antecubital; tw2 15:10 Follow up: Response: No adverse reaction tw2 14:35 Drug: Zofran 4 mg Route: IVP; Site: right antecubital; tw2 15:10 Follow up: Response: No adverse reaction; Nausea unchanged tw2 15:00 Drug: Reglan 10 mg Route: IVP; Site: right antecubital; tw2 15:53 Follow up: Response: No adverse reaction tw2 Point of Care Testing: Blood Glucose: 09:13 Blood Glucose: 180 mg/dL; aa5 15:09 Blood Glucose: 192 mg/dL; tw2 Ranges: Intake: 15:21 IV: 1000ml; Total: 1000ml. tw2 Outcome: 12:43 Decision to Hospitalize by Provider. jr8 15:51 Admitted to Med/surg accompanied by tech, via wheelchair, room 213, with chart, Report tw2 called to [facility] 15:51 Condition: stable 15:51 Instructed on the need for admit. 15:52 Patient left the ED. tw2 Signatures: Dispatcher [facility] Antonina Conway, RN RN Naeem Luis em1 Roma Jo, RN RN aa5 David Roldan PA PA jr8 Beth Peter RN RN hb Ade Aburto RN RN tw2 Federica Akins sb2
--- NOTE | 2018-05-08 13:20 | EDPHYS ---
Physician Documentation [facility] Name: Ester Akins Age: 58 yrs Sex: Female : 1960 Arrival Date: 05/08/2018 Time: 08:52 Bed 7 Private MD: JOLANTA SELF ED Physician Diogenes Rodriguez HPI: 05/08 09:27 This 58 yrs old Female presents to ER via Wheelchair with complaints of jr8 Nausea/Vomiting. 09:27 The patient presents to the emergency department with nausea, vomiting. Onset: The jr8 symptoms/episode began/occurred acutely, 3 day(s) ago. Possible causes: unknown. The symptoms are aggravated by nothing. The symptoms are alleviated by nothing. Associated signs and symptoms: Pertinent positives: constipation. Severity of symptoms: At their worst the symptoms were moderate in the emergency department the symptoms are unchanged. The patient has not experienced similar symptoms in the past. The patient has been recently seen by a physician:. Patient seen this past week for persistent nausea and constipation. Labs and imaging completed. Moderate fecal retention noted without obstruction. Was offered to be admitted but wanted to go home. [place] fine until last night. Started to have episodes of n/v that is unrelieved . Historical: - Allergies: 09:04 No Known Allergies; sv - PMHx: 09:04 Diabetes - IDDM; sv - Immunization history:: Adult Immunizations. - Social history:: Smoking status: . - Ebola Screening: : Patient denies travel to an Ebola-affected area in the 21 days before illness onset. ROS: 09:27 Eyes: Negative for injury, pain, redness, and discharge, ENT: Negative for injury, jr8 pain, and discharge, Neck: Negative for injury, pain, and swelling, Cardiovascular: Negative for chest pain, palpitations, and edema, Respiratory: Negative for shortness of breath, cough, wheezing, and pleuritic chest pain, Back: Negative for injury and pain, MS/Extremity: Negative for injury and deformity, Skin: Negative for injury, rash, and discoloration, Neuro: Negative for headache, weakness, numbness, tingling, and seizure. 09:27 Abdomen/GI: Positive for nausea and vomiting, constipation, abdominal cramps. Exam: 09:27 Eyes: Pupils equal round and reactive to light, extra-ocular motions intact. Lids and jr8 lashes normal. Conjunctiva and sclera are non-icteric and not injected. Cornea within normal limits. Periorbital areas with no swelling, redness, or edema. ENT: Nares patent. No nasal discharge, no septal abnormalities noted. Tympanic membranes are normal and external auditory canals are clear. Oropharynx with no redness, swelling, or masses, exudates, or evidence of obstruction, uvula midline. Mucous membranes moist. Neck: Trachea midline, no thyromegaly or masses palpated, and no cervical lymphadenopathy. Supple, full range of motion without nuchal rigidity, or vertebral point tenderness. No Meningismus. Cardiovascular: Regular rate and rhythm with a normal S1 and S2. No gallops, murmurs, or rubs. Normal PMI, no JVD. No pulse deficits. Respiratory: Lungs have equal breath sounds bilaterally, clear to auscultation and percussion. No rales, rhonchi or wheezes noted. No increased work of breathing, no retractions or nasal flaring. Back: No spinal tenderness. No costovertebral tenderness. Full range of motion. Skin: Warm, dry with normal turgor. Normal color with no rashes, no lesions, and no evidence of cellulitis. MS/ Extremity: Pulses equal, no cyanosis. Neurovascular intact. Full, normal range of motion. Neuro: Awake and alert, GCS 15, oriented to person, place, time, and situation. Cranial nerves II-XII grossly intact. Motor strength 5/5 in all extremities. Sensory grossly intact. Cerebellar exam normal. Normal gait. 09:27 Abdomen/GI: Inspection: obese scar(s), are noted in the , Bowel sounds: diminished, in all quadrants, Palpation: soft, in all quadrants, mild abdominal tenderness, in the mid abdomen , mass, is not appreciated, rebound tenderness, is not appreciated, voluntary guarding, is not appreciated, involuntary guarding, is not appreciated, no appreciated organomegaly, Indicators: McBurney's point is not tender, Pineda's sign is negative, Rovsing's sign is negative, Liver: no appreciated palpable abnormalities, tenderness. Vital Signs: 09:02 BP 155 / 78; Pulse 97; Resp 18; Pulse Ox 98% on R/A; tw2 09:04 Temp 97; Weight 83.91 kg; Height 5 ft. 8 in. (172.72 cm); Pain 0/10; sv 10:26 BP 151 / 85; Pulse 117; Resp 18; Pulse Ox 98% on R/A; tw2 11:55 BP 132 / 80; Pulse 103; Resp 17; Pulse Ox 100% on R/A; tw2 12:10 BP 117 / 72; Pulse 62; Resp 17; Pulse Ox 99% on R/A; tw2 12:47 BP 135 / 83; Pulse 108; Resp 17; Pulse Ox 98% on R/A; tw2 13:50 BP 122 / 83; Pulse 109; Resp 17; Pulse Ox 98% on R/A; tw2 14:38 BP 115 / 74; Pulse 102; Resp 17; Pulse Ox 97% on R/A; tw2 09:04 Body Mass Index 28.13 (83.91 kg, 172.72 cm) sv MDM: 08:56 Patient medically screened. jr8 12:41 Data reviewed: vital signs, nurses notes, lab test result(s), radiologic studies, CT jr8 scan. Data interpreted: Pulse oximetry: on room air is 99 %. Interpretation: normal. Counseling: I had a detailed discussion with the patient and/or guardian regarding: the historical points, exam findings, and any diagnostic results supporting the discharge/admit diagnosis, lab results, radiology results, the need for further work-up and treatment in the hospital. ED course: Patient still with n/v and discomfort. Will admit for intractable vomiting and pain with dehydration . 05/08 09:07 Order name: Basic Metabolic Panel; Complete Time: 10:01 05/08 09:07 Order name: CBC with Diff; Complete Time: 09:35 05/08 09:07 Order name: Creatinine for Radiology; Complete Time: 09:48 05/08 09:07 Order name: Hepatic Function; Complete Time: 10:01 05/08 09:07 Order name: Lipase; Complete Time: 10:01 05/08 09:57 Order name: Lactate; Complete Time: 11:23 05/08 09:48 Order name: CT Abd/Pelvis - W/Contrast; Complete Time: 12:36 05/08 09:07 Order name: IV Saline Lock; Complete Time: 09:18 05/08 09:07 Order name: Labs collected and sent; Complete Time: 09:18 05/08 09:10 Order name: Glucose Level; Complete Time: : Administered Medications: :18 Drug: Zofran 4 mg Route: IVP; Site: right forearm; tw2 09:53 Follow up: Response: No adverse reaction aa5 09:18 Drug: NS 0.9% 1000 ml Route: IV; Rate: 1000 ml; Site: right forearm; tw2 15:21 Follow up: Response: No adverse reaction; IV Status: Completed infusion; IV Intake: tw2 1000ml 09:53 Drug: fentaNYL (PF) 25 mcg Route: IVP; Site: right forearm; aa5 10:46 Follow up: Response: No adverse reaction; No change in condition; Pain is unchanged, tw2 physician notified 10:40 Drug: fentaNYL (PF) 50 mcg Route: IVP; Site: left antecubital; tw2 11:54 Follow up: Response: No adverse reaction; Pain is decreased tw2 10:46 Drug: NS 0.9% 1000 ml Route: IV; Rate: 1000 ml; Site: left antecubital; tw2 15:53 Follow up: Response: No adverse reaction; IV Status: Infusion continued upon admission tw2 12:16 Drug: Zofran 4 mg Route: IVP; Site: left antecubital; aa5 13:00 Follow up: Response: No adverse reaction tw2 12:38 Drug: fentaNYL (PF) 25 mcg Route: IVP; Site: left antecubital; tw2 15:10 Follow up: Response: No adverse reaction tw2 14:35 Drug: Zofran 4 mg Route: IVP; Site: right antecubital; tw2 15:10 Follow up: Response: No adverse reaction; Nausea unchanged tw2 15:00 Drug: Reglan 10 mg Route: IVP; Site: right antecubital; tw2 15:53 Follow up: Response: No adverse reaction tw2 Point of Care Testing: Blood Glucose: :13 Blood Glucose: 180 mg/dL; aa5 15:09 Blood Glucose: 192 mg/dL; tw2 Ranges: Critical Glucose Levels:Adult <50 mg/dl or >400 mg/dl <40 mg/dl or >180 mg/dl Disposition: 05/08/18 12:43 Hospitalization ordered by Dorita Oden for Observation. Preliminary diagnosis are Intractable nausea and vomiting, Abdominal and pelvic pain, Dehydration. - Bed requested for Telemetry/MedSurg (observation). - Status is Observation. tw2 - Condition is Stable. - Problem is new. - Symptoms have improved. UTI on Admission? No Addendum: 05/09/2018 17:45 Co-signature as Attending Physician, Diogenes Rodriguez MD I agree with the assessment and c carmona plan of care. Signatures: Dispatcher [employer] EDMS Winifred Hickman Stephanie, RN RN Diogenes Solano MD MD cha Calderon, Audri, RN RN aa5 David Roldan PA PA jr8 Beth Peter RN RN Ade Aburto RN RN tw2 Corrections: (The following items were deleted from the chart) 05/08 15:16 12:43 Hospitalization Ordered by Dorita Oden MD for Observation. Preliminary diagnosis bd is Intractable nausea and vomiting; Abdominal and pelvic pain; Dehydration. Bed requested for Telemetry/MedSurg (observation). Status is Observation. Condition is Stable. Problem is new. Symptoms have improved. UTI on Admission? No. jr8 15:52 15:16 05/08/2018 12:43 Hospitalization Ordered by Dorita Oden MD for Observation. tw2 Preliminary diagnosis is Intractable nausea and vomiting; Abdominal and pelvic pain; Dehydration. Bed requested for Telemetry/MedSurg (observation). Status is Observation. Condition is Stable. Problem is new. Symptoms have improved. UTI on Admission? No. bd
[2018-05-08] MEDS ORDERED: METOCLOPRAMIDE 10 MG/2mL INJ ONE (15:03)
--- NOTE | 2018-05-08 16:58 | P.HP ---
Patient History Date of Service: 05/08/18 Reason for admission: Abdominal pain, n/v History of Present Illness: 58 yr old female with hx of it's diabetes hypertension admitted for abdominal pain, nausea and vomiting for the past 1 week. She describes it as annoying pain tests had a 10 without any radiation. Alleviated with pain medications that she received in the ED. Any movement or walking makes lower abdominal pain worse. She denies any blood in the vomitus, denies any spitting up blood. States that she has not had a bowel movement in the past 1 week. Her normal bowel movement ranges from anywhere between 1-3 days. At the time of my examination, patient was alert oriented x3 in mild distress due to abdominal pain. Allergies No Known Drug Allergies Allergy (Unverified 01/21/15 08:01) Unknown Home Medications: Dapagliflozin Propanediol [Farxiga] 1 tab PO DAILY 05/08/18 Dulaglutide [Trulicity] 1.5 mg SQ DIRECTED 05/08/18 Duloxetine HCl 1 cap PO DAILY 05/08/18 Lisinopril/Hydrochlorothiazide [Lisinopril-Hctz 20-12.5 mg Tab] 1 tab PO DAILY 05/08/18 Metformin HCl 1,000 mg PO BIDWM 05/08/18 Sertraline HCl 1 tab PO DAILY 05/08/18 - Past Medical/Surgical History Has patient received pneumonia vaccine in the past: No Diabetic: Yes -: hypertension -: depression -: fatty liver -: diabetes -: hysterectomy -: ovarian benign tumor removal -: cholecystectomy - Family History Mother -: Cancer - Social History Smoking Status: Former smoker Alcohol use: No CD- Drugs: No Caffeine use: Yes Place of Residence: Home Review of Systems General: Unremarkable Eyes: Unremarkable ENT: Unremarkable Respiratory: Unremarkable Cardiovascular: Unremarkable Gastrointestinal: Nausea, Vomiting, Abdominal Pain, Constipation, As per HPI Genitourinary: Unremarkable Musculoskeletal: Unremarkable Integumentary: Unremarkable Neurological: Unremarkable Lymphatics: Unremarkable Physical Examination - Vital Signs Temperature: 97 F Blood Pressure: 115/74 Pulse: 102 Respirations: 17 - Physical Exam General: Alert, In no apparent distress HEENT: Atraumatic, PERRLA, Mucous membr. moist/pink, EOMI, Sclerae nonicteric Neck: Supple, 2+ carotid pulse no bruit, No LAD, Without JVD or thyroid abnormality Respiratory: Clear to auscultation bilaterally, Normal air movement Cardiovascular: Regular rate/rhythm, Normal S1 S2 Gastrointestinal: Normal bowel sounds, Non-distended, No rebound, No guarding, Tenderness (On deep palpation. Epigastric and right upper quadrant.) Musculoskeletal: No tenderness Integumentary: No rashes Neurological: Normal speech, Normal strength at 5/5 x4 extr, Normal tone, Normal affect Lymphatics: No axilla or inguinal lymphadenopathy - Studies Laboratory Data (last 24 hrs) 05/08/18 09:15: Creatinine 1.10 05/08/18 09:15: WBC 13.6 H, Hgb 15.8 H, Hct 46.8 H, Plt Count 215 05/08/18 09:15: Sodium 139, Potassium 3.6, BUN 17, Creatinine 1.10, Glucose 197 H, Total Bilirubin 1.0, AST 28, ALT 44, Alkaline Phosphatase 90, Lipase 328 Assessment and Plan - Problems (Diagnosis) (1) Abdominal pain Current Visit: Yes Status: Acute Plan: CT of abdomen with mild liver cirrhosis and fatty infiltrate. Esophageal varices with small to moderate hiatal hernia. No bleeding noted. Patient denies any spitting up or vomiting blood. Denies any blood in the stool. Patient is hemodynamically stable Pain control with morphine. Reglan, Zofran for nausea. Keep NPO overnight, monitor. IV fluids are running at 100 cc/hour (2) Intractable nausea and vomiting Current Visit: Yes Status: Acute Plan: Reglan, Zofran. Keep NPO and monitor. (3) Esophageal varices Current Visit: Yes Status: Acute Qualifiers: Esophageal varices bleeding: without bleeding (4) Hypertension Current Visit: Yes Status: Acute Plan: Stable. Continue home medications. (5) Diabetes mellitus type 2 in obese Current Visit: Yes Status: Acute Plan: Accu-Cheks. mild sliding scale insulin ordered. Will adjust as needed (6) Fatty liver Current Visit: Yes Status: Acute Plan: Stable. Educated on lifestyle modifications. (7) Hypochloremia Current Visit: Yes Status: Acute Plan: Likely secondary to excessive vomiting. Will start IV fluids and monitor. Discharge Plan: Home Plan to discharge in: 48 Hours - Advance Directives Does patient have a Living Will: No Does patient have a Durable POA for Healthcare: No
[2018-05-08] MEDS ORDERED: ONDANSETRON 4 MG/2 ML VIAL IV PRN (17:01)
[2018-05-08] MEDS ORDERED: D50W 25 GM/50 ML SYRINGE IV PRN (17:05)
[2018-05-08] MEDS ORDERED: GLUCAGON 1 MG/VIAL IM PRN (17:05)
[2018-05-08] MEDS ORDERED: MORPHINE 4 MG/ML SYR IV PRN (17:06)
[2018-05-08] MEDS ORDERED: FLEET ENEMA ADULT PR PRN (17:08)
[2018-05-08] MEDS: METOCLOPRAMIDE 10 MG/2mL INJ IV PRN (17:40)
[2018-05-08] MEDS: MORPHINE 4 MG/ML SYR IV PRN ×2 (17:40→22:26)
[2018-05-08] MEDS: ENOXAPARIN 40 MG/0.4 ML SQ SCH (17:41)
[2018-05-08] MEDS: NA CHLORIDE 0.9% 1,000 ML IV SCH (17:41)
[2018-05-08] MEDS ORDERED: INFLUENZA VACCINE (for 3y+) 0.5 ML DOSE IMVAC ONE ×2 (20:30→21:00)
[2018-05-08] MEDS ORDERED: PNEUMOCOCCAL VACCINE 0.5 ML IMVAC ONE (21:00)
[2018-05-08] MEDS ORDERED: INSULIN -REGULAR HUMAN 50 UNIT/0.5 ML ML SQ SCH (21:00)
[2018-05-08] MEDS: ONDANSETRON 4 MG/2 ML VIAL IV PRN (22:30)
[2018-05-09] MEDS: METOCLOPRAMIDE 10 MG/2mL INJ IV PRN ×2 (00:34→16:39)
[2018-05-09] MEDS: MORPHINE 4 MG/ML SYR IV PRN ×4 (03:04→16:39)
[2018-05-09] MEDS: ONDANSETRON 4 MG/2 ML VIAL IV PRN ×4 (03:05→20:59)
[2018-05-09] MEDS: NA CHLORIDE 0.9% 1,000 ML IV SCH (05:53)
[2018-05-09] MEDS: INSULIN -REGULAR HUMAN 50 UNIT/0.5 ML ML SQ SCH ×3 (05:57→17:00)
[2018-05-09 06:33] LABS: Absolute Lymphocytes (CBC) 1.6 K/uL (0.7-4.9); Absolute Monocytes 1.2 K/uL (0.1-1.3); Absolute Neutrophil 10.5 K/uL (1.8-8.0); Basophils % 0.2 % (0-1.3); Lymphocytes % 11.7 % (15.3-44.8); MCH 30.8 pg (27.0-35.0); MCV 90.4 fL (80-100); MPV 10.3 fL (7.6-11.3); Monocytes % 8.7 % (3.3-12.3); RBC Red Blood Cell Count 4.54 M/uL (3.86-4.86)
[2018-05-09 06:54] LABS: Albumin 3.7 g/dL (3.4-5.0); Bilirubin Total 0.7 mg/dL (0.2-1.0); Magnesium 2.3 mg/dL (1.8-2.4); Phosphorus 4.3 mg/dL (2.5-4.9); Protein, Total 7.4 g/dL (6.4-8.2)
[2018-05-09 07:00] LABS: Potassium 2.6 mmol/L (3.5-5.1)
[2018-05-09] MEDS: KCL 20 MEQ/100 mL IVPB 20 MEQ/100 ML BAG IV SCH ×3 (07:53→13:09)
[2018-05-09] MEDS ORDERED: HOME MED 1 EA UNK (Lisinopril/Hydrochlorothiazide [Lisinopril-Hctz 20-12.5 Mg Tab] 1 TAB) PO SCH (09:00)
[2018-05-09] MEDS ORDERED: hydroCHLOROthiazide 12.5 MG CAP PO SCH (09:00)
[2018-05-09] MEDS: SERTRALINE HCL 50 MG TAB PO SCH (10:15)
[2018-05-09] MEDS: LISINOPRIL 20 MG TAB PO SCH (10:15)
[2018-05-09] MEDS: ENOXAPARIN 40 MG/0.4 ML SQ SCH (10:16)
[2018-05-09 11:37] LABS: Urine Appearance CLOUDY; Urine Bilirubin NEGATIVE (NEG); Urine Blood TRACE (NEG); Urine Color YELLOW; Urine Glucose 3+ (NEG); Urine Protein 1+ (NEG); Urine Specific Gravity >=1.030 (1.005-1.030); Urine Urobilinogen 0.2 mg/dL (0.2-1.0); Urine pH 5.5 (5.0-7.0)
[2018-05-09 11:42] LABS: Urine RBC <5 /HPF (NONE SEEN)
[2018-05-09 11:43] LABS: Urine Bacteria >50 /HPF (<20); Urine Culture Reflex Order REFLEXED; Urine Mucus 2+ /HPF (NONE SEEN); Urine Yeast MANY (NONE SEEN)
[2018-05-09] MEDS: NACHLORIDE 0.45% 1,000 ML IV SCH (14:15)
[2018-05-09] MEDS: CEFTRIAXONE/SWI 1gm 1 GM/10 ML SYR IV SCH (14:15)
[2018-05-09 14:48] VITALS: BMI 28.0
--- NOTE | 2018-05-09 17:39 | P.PN ---
Subjective Date of Service: 05/09/18 Chief Complaint: Abdominal pain, n/v Patient seen and examined at bedside. at bedside. Chart reviewed and case discussed with nursing staff. Patient still complaining of abdominal pain, nausea, vomiting. As she states that the pain medication was giving her really does help her pain. Review of Systems 10-point ROS is otherwise unremarkable Physical Examination - Vital Signs Temperature: 97.8 F Blood Pressure: 144/68 Pulse: 97 Respirations: 18 Pulse Ox (%): 98 - Physical Exam General: Alert, In no apparent distress HEENT: Atraumatic, PERRLA, EOMI Neck: Supple, JVD not distended Respiratory: Clear to auscultation bilaterally, Normal air movement Cardiovascular: Regular rate/rhythm, Normal S1 S2 Gastrointestinal: Normal bowel sounds, Tenderness (Left upper quadrant epigastric area) Musculoskeletal: No tenderness Integumentary: No rashes Neurological: Normal speech, Normal tone, Normal affect Lymphatics: No axilla or inguinal lymphadenopathy - Studies Medications List Reviewed: Yes Assessment And Plan - Current Problems (Diagnosis) (1) Abdominal pain Onset Date: 05/09/18 Current Visit: Yes Status: Acute Plan: CT of abdomen with mild liver cirrhosis and fatty infiltrate. Esophageal varices with small to moderate hiatal hernia. No bleeding noted. Patient denies any spitting up or vomiting blood. Denies any blood in the stool. Patient is hemodynamically stable Pain control with morphine. Reglan, Zofran for nausea. Continue NPO. IV fluids are running at 100 cc/hour (2) UTI (urinary tract infection) Current Visit: Yes Status: Acute Plan: Urine with evidence of urinary tract infection. Started Rocephin, pending urine cultures. (3) Hypernatremia Current Visit: Yes Status: Acute Plan: Likely secondary to vomiting and a hyper came the media. Serum sodium of 150. Patient was running a normal saline. Changed to half- normal saline. Discontinue hydrochlorothiazide for now as diuretics could also cause these electrolyte changes. (4) Hypokalemia Current Visit: Yes Status: Acute Plan: Likely secondary to vomiting. Replaced Monitor (5) Intractable nausea and vomiting Onset Date: 05/09/18 Current Visit: Yes Status: Acute Plan: Reglan, Zofran. Keep NPO and monitor. (6) Esophageal varices Onset Date: 05/09/18 Current Visit: Yes Status: Acute Qualifiers: Esophageal varices bleeding: without bleeding (7) Hypertension Onset Date: 05/09/18 Current Visit: Yes Status: Acute Plan: Stable. Continue home medications. (8) Diabetes mellitus type 2 in obese Onset Date: 05/09/18 Current Visit: Yes Status: Acute Plan: Accu-Cheks. mild sliding scale insulin ordered. Will adjust as needed (9) Fatty liver Onset Date: 05/09/18 Current Visit: Yes Status: Acute Plan: Stable. Educated on lifestyle modifications. (10) Hypochloremia Onset Date: 05/09/18 Current Visit: Yes Status: Acute Plan: Likely secondary to excessive vomiting. Will start IV fluids and monitor. Discharge Plan: Home Plan to discharge in: 48 Hours (After tolerating soft diet)
[2018-05-09] MEDS ORDERED: KCL 20 MEQ/100 mL IVPB 20 MEQ/100 ML BAG IV SCH ×2 (20:00)
[2018-05-10] MEDS: NACHLORIDE 0.45% 1,000 ML IV SCH ×2 (02:10→15:03)
[2018-05-10] MEDS: ONDANSETRON 4 MG/2 ML VIAL IV PRN ×5 (02:33→22:03)
[2018-05-10] MEDS: METOCLOPRAMIDE 10 MG/2mL INJ IV PRN (03:35)
[2018-05-10] MEDS: MORPHINE 4 MG/ML SYR IV PRN ×3 (04:01→12:38)
[2018-05-10 05:38] LABS: Absolute Lymphocytes (CBC) 1.3 K/uL (0.7-4.9); Absolute Monocytes 0.8 K/uL (0.1-1.3); Absolute Neutrophil 9.6 K/uL (1.8-8.0); Basophils % 0.3 % (0-1.3); Eosinophils % 0.2 % (0-4.4); Hematocrit 39.8 % (36.0-45.0); Lymphocytes % 11.3 % (15.3-44.8); MCH 30.6 pg (27.0-35.0); MCV 90.7 fL (80-100); MPV 9.8 fL (7.6-11.3); Monocytes % 7.1 % (3.3-12.3); RBC Red Blood Cell Count 4.38 M/uL (3.86-4.86)
[2018-05-10 05:51] LABS: Albumin 3.5 g/dL (3.4-5.0); Bilirubin Total 0.9 mg/dL (0.2-1.0); Potassium 3.3 mmol/L (3.5-5.1); Protein, Total 7.2 g/dL (6.4-8.2)
[2018-05-10] MEDS: KCL 20 MEQ/100 mL IVPB 20 MEQ/100 ML BAG IV SCH ×2 (06:30→08:22)
[2018-05-10] MEDS: INSULIN -REGULAR HUMAN 50 UNIT/0.5 ML ML SQ SCH ×5 (07:30→21:00)
[2018-05-10] MEDS: CEFTRIAXONE/SWI 1gm 1 GM/10 ML SYR IV SCH (08:22)
[2018-05-10] MEDS: ENOXAPARIN 40 MG/0.4 ML SQ SCH (08:23)
[2018-05-10] MEDS: LISINOPRIL 20 MG TAB PO SCH (08:23)
[2018-05-10] MEDS: SERTRALINE HCL 50 MG TAB PO SCH (08:34)
[2018-05-10] MEDS ORDERED: TRAMADOL HCL 50 MG TAB PO PRN (14:59)
[2018-05-10] MEDS ORDERED: METOCLOPRAMIDE 5 MG TAB PO SCH (16:30)
[2018-05-10] MEDS: TRAMADOL HCL 50 MG TAB PO PRN ×2 (16:32→22:00)
[2018-05-10] MEDS: METOCLOPRAMIDE 5 MG TAB PO SCH ×2 (16:32→20:59)
--- NOTE | 2018-05-10 17:44 | P.PN ---
Subjective Date of Service: 05/10/18 Chief Complaint: Abdominal pain, n/v Patient seen and examined at bedside with RN. Chart reviewed. Case discussed with family member and patient at bedside. Patient complains of having some nausea vomiting this morning. He also complains of having some headaches. Denies having any fever chills or chest pain at this time Review of Systems 10-point ROS is otherwise unremarkable Physical Examination - Vital Signs Temperature: 96.5 F Blood Pressure: 147/70 Pulse: 79 Respirations: 18 Pulse Ox (%): 97 - Physical Exam General: Alert, In no apparent distress HEENT: Atraumatic, PERRLA, EOMI Neck: Supple, JVD not distended Respiratory: Clear to auscultation bilaterally, Normal air movement Cardiovascular: Regular rate/rhythm, Normal S1 S2 Gastrointestinal: Normal bowel sounds, No tenderness Musculoskeletal: No tenderness Integumentary: No rashes Neurological: Normal speech, Normal tone, Normal affect Lymphatics: No axilla or inguinal lymphadenopathy - Studies Medications List Reviewed: Yes Assessment And Plan - Current Problems (Diagnosis) (1) UTI (urinary tract infection) Current Visit: Yes Status: Acute Plan: UA concerning for UTI -urine culture positive for Gram negative rods -currently on IV Rocephin will continue at this time -will follow up with sensitivities in 24 hr Qualifiers: Urinary tract infection type: acute cystitis Hematuria presence: without hematuria Qualified Code(s): N30.00 - Acute cystitis without hematuria (2) Intractable nausea and vomiting Onset Date: 05/09/18 Current Visit: Yes Status: Acute Plan: Intractable nausea and vomiting most likely secondary to gastroparesis. -patient was educated extensively on pain medication usage and nausea medication usage in an appropriate manner. -was switched to p.o. Raglan at this time -patient was encouraged to take oral intake and ambulate to help with the colon Mobility Qualifiers: Vomiting type: cyclical vomiting Qualified Code(s): G43.A1 - Cyclical vomiting, intractable (3) Diabetes mellitus type 2 in obese Onset Date: 05/09/18 Current Visit: Yes Status: Chronic (4) Fatty liver Onset Date: 05/09/18 Current Visit: Yes Status: Chronic (5) Hypertension Onset Date: 05/09/18 Current Visit: Yes Status: Chronic Qualifiers: Hypertension type: essential hypertension Qualified Code(s): I10 - Essential (primary) hypertension Discharge Plan: Home Plan to discharge in: 48 Hours - Code Status/Comfort Care Code Status Assessed: Yes Critical Care: No
[2018-05-11] MEDS: NACHLORIDE 0.45% 1,000 ML IV SCH ×2 (04:07→18:20)
[2018-05-11] MEDS: TRAMADOL HCL 50 MG TAB PO PRN (04:09)
[2018-05-11] MEDS: ONDANSETRON 4 MG/2 ML VIAL IV PRN (04:10)
[2018-05-11] MEDS ORDERED: FLEET ENEMA ADULT PR ONE (04:19)
[2018-05-11 05:17] LABS: Absolute Lymphocytes (CBC) 3.2 K/uL (0.7-4.9); Absolute Monocytes 0.8 K/uL (0.1-1.3); Absolute Neutrophil 6.9 K/uL (1.8-8.0); Basophils % 0.3 % (0-1.3); Eosinophils % 0.4 % (0-4.4); Hematocrit 38.3 % (36.0-45.0); Lymphocytes % 29.1 % (15.3-44.8); MCH 30.8 pg (27.0-35.0); MCV 89.3 fL (80-100); MPV 9.8 fL (7.6-11.3); Monocytes % 7.1 % (3.3-12.3); RBC Red Blood Cell Count 4.29 M/uL (3.86-4.86)
[2018-05-11 05:37] LABS: Albumin 3.3 g/dL (3.4-5.0); Bilirubin Total 0.8 mg/dL (0.2-1.0); Potassium 3.2 mmol/L (3.5-5.1); Protein, Total 6.8 g/dL (6.4-8.2)
[2018-05-11] MEDS: INSULIN -REGULAR HUMAN 50 UNIT/0.5 ML ML SQ SCH ×4 (07:30→20:57)
[2018-05-11] MEDS: METOCLOPRAMIDE 5 MG TAB PO SCH (07:30)
[2018-05-11] MEDS: KCL 20 MEQ/100 mL IVPB 20 MEQ/100 ML BAG IV SCH ×4 (07:34→20:57)
[2018-05-11] MEDS: SERTRALINE HCL 50 MG TAB PO SCH (08:53)
[2018-05-11] MEDS: LISINOPRIL 20 MG TAB PO SCH (08:53)
[2018-05-11] MEDS: PROMETHAZINE 25 MG/ML VIAL IV PRN ×4 (08:53→21:46)
[2018-05-11] MEDS: CEFTRIAXONE/SWI 1gm 1 GM/10 ML SYR IV SCH (08:54)
[2018-05-11] MEDS: ENOXAPARIN 40 MG/0.4 ML SQ SCH (08:54)
--- NOTE | 2018-05-11 13:26 | P.PN ---
Subjective Date of Service: 05/11/18 Primary Care Provider: Alpa Duran NP Chief Complaint: Abdominal pain, n/v Subjective: Other (Patient still with increased nausea and vomiting. Poor oral intake noted. Patient will asking for pain medication to help her rest.) Physical Examination - Vital Signs Temperature: 97.3 F Blood Pressure: 161/78 Pulse: 66 Respirations: 18 Pulse Ox (%): 96 - Physical Exam General: Alert, In no apparent distress, Cooperative HEENT: Atraumatic Neck: Supple Respiratory: Clear to auscultation bilaterally, Normal air movement Cardiovascular: Normal pulses, Regular rate/rhythm Gastrointestinal: Normal bowel sounds, Soft and benign, Non-distended, No tenderness, No masses, No rebound, No guarding Musculoskeletal: No erythema, No tenderness, No warmth Integumentary: No tenderness/swelling, No erythema, No warmth, No cyanosis Neurological: Normal speech, Normal strength at 5/5 x4 extr, Normal tone, Normal affect Lymphatics: No axilla or inguinal lymphadenopathy - Studies Microbiology Data (last 24 hrs): 05/09/18 11:20 Clean Catch Urine [place] Count - Final >100,000 CFU/ML. 05/09/18 11:20 Clean Catch Urine - Final Escherichia Coli Medications List Reviewed: Yes Assessment & Plan Discharge Plan: Home Plan to discharge in: 24 Hours Physician Review Additional Text: Impression: Increased nausea and vomiting with noted GERD/moderate hiatal hernia/esophageal varices and possible diabetic gastroparesis Fatigue secondary to UTI-E coli Diabetes mellitus type 2 [id number] Fatty liver with noted liver cirrhosis likely related to nonalcoholic steatohepatitis Depression with anxiety Hypokalemia secondary to nausea and vomiting Plan: Increased nausea and vomiting with noted moderate hiatal hernia/esophageal varices and possible diabetic gastroparesis: Patient still with increased nausea and vomiting. Multiple factors need to be considered. Will discontinue Reglan and Zofran. Will switch to Phenergan. Will add IV Protonix due to GERD and hiatal hernia. GI consulted. EGD is planned for tomorrow. Await further recommendations from GI. Will continue with clear liquid diet and advance as tolerated. Anticipate discharge in the next 24-48 hr. Encourage ambulation. No need for IV pain medication. Fatigue secondary to UTI-E coli: Will change to Bactrim. Will monitor and adjust appropriately. Diabetes mellitus type 2 [id number]: Will continue insulin sliding scale. Will monitor Accu-Cheks. Metformin on hold. Fatty liver with noted liver cirrhosis likely related to nonalcoholic steatohepatitis: Dietary changes will need to be addressed. Will order dietary consultation to further address. GI consulted to evaluate liver cirrhosis. Await further recommendations from GI. Depression with anxiety: Will continue with her medication. Hypokalemia secondary to nausea and vomiting: Will monitor and replace appropriately. Replacement protocol in place. Hypertension: Will continue with her medication. Time Spent Managing Pts Care (In Minutes): 55
[2018-05-11] MEDS ORDERED: POTASSIUM CL SA 10 MEQ TAB PO ONE (18:13)
[2018-05-11] MEDS: SMZ./TMP. 800/160 MG TABLET PO SCH ×2 (20:57→21:00)
[2018-05-12] MEDS: PROMETHAZINE 25 MG/ML VIAL IV PRN ×5 (01:24→20:32)
[2018-05-12] MEDS: NACHLORIDE 0.45% 1,000 ML IV SCH ×2 (04:20→08:00)
[2018-05-12 06:09] LABS: Absolute Lymphocytes (CBC) 1.4 K/uL (0.7-4.9); Absolute Monocytes 0.8 K/uL (0.1-1.3); Absolute Neutrophil 9.4 K/uL (1.8-8.0); Basophils % 0.2 % (0-1.3); Lymphocytes % 12.4 % (15.3-44.8); MCH 30.6 pg (27.0-35.0); MCV 89.9 fL (80-100); MPV 10.3 fL (7.6-11.3); Monocytes % 6.8 % (3.3-12.3); RBC Red Blood Cell Count 4.79 M/uL (3.86-4.86)
[2018-05-12 06:32] LABS: Albumin 3.4 g/dL (3.4-5.0); Bilirubin Total 0.7 mg/dL (0.2-1.0); Magnesium 2.2 mg/dL (1.8-2.4); Potassium 3.3 mmol/L (3.5-5.1); Protein, Total 7.1 g/dL (6.4-8.2)
[2018-05-12] MEDS: KCL 20 MEQ/100 mL IVPB 20 MEQ/100 ML BAG IV SCH ×2 (07:28→08:47)
[2018-05-12] MEDS: INSULIN -REGULAR HUMAN 50 UNIT/0.5 ML ML SQ SCH ×4 (07:30→20:39)
[2018-05-12] MEDS: SODIUM CHLORIDE 0.9% 10ML INJ IV PRN (08:47)
[2018-05-12] MEDS: DULOXETINE 30 MG CAP PO SCH (08:48)
[2018-05-12] MEDS: LISINOPRIL 20 MG TAB PO SCH (08:48)
[2018-05-12] MEDS: SERTRALINE HCL 50 MG TAB PO SCH (08:49)
[2018-05-12] MEDS: CEFTRIAXONE/SWI 1gm 1 GM/10 ML SYR IV SCH (08:49)
[2018-05-12] MEDS ORDERED: CEFTRIAXONE 1 GM/NS 50 ML 1 GM/50 ML BAG IV SCH (09:00)
[2018-05-12] MEDS: ENOXAPARIN 40 MG/0.4 ML SQ SCH (09:00)
[2018-05-12] MEDS ORDERED: PANTOPRAZOLE 40 MG INJ IVP SCH (09:00)
--- NOTE | 2018-05-12 11:34 | P.PN ---
Subjective Date of Service: 05/12/18 Primary Care Provider: Alpa Duran NP Chief Complaint: Abdominal pain, n/v Subjective: Other (Still with increased nausea and vomiting.) Physical Examination - Vital Signs Temperature: 97.2 F Blood Pressure: 140/82 Pulse: 98 Respirations: 17 Pulse Ox (%): 96 - Physical Exam General: Alert, In no apparent distress, Cooperative HEENT: Atraumatic, Other (Dry mucous membranes) Neck: Supple Respiratory: Clear to auscultation bilaterally, Normal air movement Cardiovascular: Normal pulses, Regular rate/rhythm Gastrointestinal: No masses, No rebound, No guarding, Tenderness (Mild pain to the epigastric region, still with nausea and vomiting) Musculoskeletal: No erythema, No tenderness, No warmth Integumentary: No tenderness/swelling, No erythema, No warmth, No cyanosis Neurological: Normal speech, Normal strength at 5/5 x4 extr, Normal tone, Normal affect - Studies Microbiology Data (last 24 hrs): 05/09/18 11:20 Clean Catch Urine [place] Count - Final >100,000 CFU/ML. 05/09/18 11:20 Clean Catch Urine - Final Escherichia Coli Medications List Reviewed: Yes Assessment & Plan Discharge Plan: Home Plan to discharge in: 48 Hours Physician Review Additional Text: Impression: Increased nausea and vomiting with noted GERD/moderate hiatal hernia/esophageal varices and possible diabetic gastroparesis Fatigue secondary to UTI-E coli Diabetes mellitus type 2 [id number] Fatty liver with noted liver cirrhosis likely related to nonalcoholic steatohepatitis Depression with anxiety Hypokalemia secondary to nausea and vomiting Plan: Increased nausea and vomiting with noted moderate hiatal hernia/esophageal varices and possible diabetic gastroparesis: Patient still with increased nausea. Abdominal pain improved but still present. Will continue with Phenergan. Patient currently on IV Protonix. EGD planned for today. Await findings and recommendations by GI. Patient currently on clear liquid diet. Continue with IV fluids. Will monitor adjust appropriately. Anticipate discharge likely in 48 hr or once nausea significantly improved. Fatigue secondary to UTI-E coli: Will change antibiotics to IV Rocephin due to poor oral intake. Can be changed to oral medication once she is able to take oral intake well. Will monitor and adjust appropriately. Diabetes mellitus type 2 [id number]: Will continue insulin sliding scale. Will monitor Accu-Cheks. Metformin on hold. Fatty liver with noted liver cirrhosis likely related to nonalcoholic steatohepatitis: Dietary changes will need to be addressed. Await dietary consultation to further recommend. GI consulted to evaluate liver cirrhosis. Await further recommendations from GI. Depression with anxiety: Will continue with her medication. Hypokalemia secondary to nausea and vomiting: Will monitor and replace appropriately. Replacement protocol in place. Hypertension: Will continue with her medication. Time Spent Managing Pts Care (In Minutes): 55
[2018-05-12] MEDS ORDERED: NA CHLORIDE 0.9% 1,000 ML ONE (13:19)
[2018-05-12] MEDS ORDERED: PROPOFOL 200 MG/20 ML VIAL IV ONE (13:35)
[2018-05-12] MEDS ORDERED: ONDANSETRON HCL 40 MG/20 ML VIAL ONE ×2 (13:36→14:26)
[2018-05-12] MEDS ORDERED: LIDOCAINE 1% MPF 30 ML VIAL ONE (13:36)
--- NOTE | 2018-05-12 14:34 | ENDO RPT ---
[address], [address] EGD PROCEDURE REPORT EXAM DATE: 05/12/2018 PATIENT NAME: Ester Akins MR#: [id number] BIRTHDATE: 1960 ATTENDING: Leonardo Portillo Dr STATUS: inpatient - [facility] [employer]IOR FINANCIAL ANALYST: Felipa Pedro and Sylvia Vega RN INDICATIONS: The patient is a 58 yr old Female here for an EGD due to nausea and vomiting, mid epigastric abdominal pain, odynophagia, and dysphagia PROCEDURE PERFORMED: EGD with biopsy MEDICATIONS: Per Anesthesia. TOPICAL ANESTHETIC: none CONSENT: The patient understands the risks and benefits of the procedure and understands that these risks include, but are not limited to: sedation, allergic reaction, infection, perforation and/or bleeding. Alternative means of evaluation and treatment include, among others: physical exam, x-rays, and/or surgical intervention. The patient elects to proceed with this endoscopic procedure. DESCRIPTION OF PROCEDURE: During intra-op preparation period all mechanical medical equipment was checked for proper function. Hand hygiene and appropriate measures for infection prevention was taken. Procedure, possible complications, and alternatives including but not limited to the possibility of bleeding, perforation, tear, infection, sepsis, need for surgery, need for blood transfusion, and anesthesia related complications were explained to the patient. After the risks, benefits and alternatives of the procedure were thoroughly explained, Informed consent was verified, confirmed and timeout was successfully executed by the treatment team. The patient was placed in the left lateral position. The patient was anesthetized with topical anesthesia. Through the anesthetized oropharyngeal area, the scope was passed without any difficulty. The Pentax EG-[id number] ([id number]) endoscope was introduced through the mouth and advanced to the second portion of the duodenum. Retroflexed views revealed a small hiatal hernia. The gastroscope was then slowly withdrawn and removed. Plaques were found in the pharynx. Plaques were found in the upper esophagus. LA class D esophagitis was found in the lower esophagus (tip at 30 cm, to GEJ at 38 cm, DI at 40 cm from the gums). Schatzki's ring in the distal esophagus. A small hiatal hernia was found Moderate gastritis was found in the total stomach. Multiple biopsies were obtained and sent to pathology. Multiple ulcers were found in the bulb of the duodenum. Duodenitis was found in the bulb of the duodenum. ADVERSE EVENTS: There were no complications. IMPRESSIONS: 1. Yellow-white plaques in the pharynx/epiglottis/hypopharynx 2. Yellow-white plaques in the upper esophagus eschar with areas mixed with dark black heme in the lower esophagus (tip at 30 cm, to GEJ at 38 cm, DI at 40 cm from the gums) 4. Schatzki's ring in the distal esophagus 5. A small hiatal hernia 6. Moderate gastritis in the total stomach 7. Multiple ( 8) small 2-4 mm clean-based ulcers in the bulb of the duodenum 8. Duodenitis in the bulb of the duodenum RECOMMENDATIONS: 1. await biopsy results 2. acid suppression therapy 3. Protonix IV drip 4. Diflucan therapy REPEAT EXAM: Return in 2 month(s) for EGD. Leonardo Portillo Dr eSigned: Leonardo Portillo Dr 05/12/2018 2:32 PM Revised: 05/12/2018 2:32 PM cc: Artemio Baird CPT CODES: ICD9 CODES: PATIENT NAME: Ester Akins MR#: [id number]
--- NOTE | 2018-05-12 14:34 | ENDO RPT ---
[address], [address] EGD PROCEDURE REPORT EXAM DATE: 05/12/2018 PATIENT NAME: Ester Akins MR#: [id number] BIRTHDATE: 1960 ATTENDING: Leonardo Portillo Dr STATUS: inpatient - [facility] REAMER: Felipa Pedro and Sylvia Vega RN INDICATIONS: The patient is a 58 yr old Female here for an EGD due to nausea and vomiting, mid epigastric abdominal pain, odynophagia, and dysphagia PROCEDURE PERFORMED: EGD with biopsy MEDICATIONS: Per Anesthesia. TOPICAL ANESTHETIC: none CONSENT: The patient understands the risks and benefits of the procedure and understands that these risks include, but are not limited to: sedation, allergic reaction, infection, perforation and/or bleeding. Alternative means of evaluation and treatment include, among others: physical exam, x-rays, and/or surgical intervention. The patient elects to proceed with this endoscopic procedure. DESCRIPTION OF PROCEDURE: During intra-op preparation period all mechanical medical equipment was checked for proper function. Hand hygiene and appropriate measures for infection prevention was taken. Procedure, possible complications, and alternatives including but not limited to the possibility of bleeding, perforation, tear, infection, sepsis, need for surgery, need for blood transfusion, and anesthesia related complications were explained to the patient. After the risks, benefits and alternatives of the procedure were thoroughly explained, Informed consent was verified, confirmed and timeout was successfully executed by the treatment team. The patient was placed in the left lateral position. The patient was anesthetized with topical anesthesia. Through the anesthetized oropharyngeal area, the scope was passed without any difficulty. The Pentax EG-[id number] ([id number]) endoscope was introduced through the mouth and advanced to the second portion of the duodenum. Retroflexed views revealed a small hiatal hernia. The gastroscope was then slowly withdrawn and removed. Plaques were found in the pharynx. Plaques were found in the upper esophagus. LA class D esophagitis was found in the lower esophagus (tip at 30 cm, to GEJ at 38 cm, DI at 40 cm from the gums). A small hiatal hernia was found Moderate gastritis was found in the total stomach. Multiple biopsies were obtained and sent to pathology. Multiple ulcers were found in the bulb of the duodenum. Duodenitis was found in the bulb of the duodenum. ADVERSE EVENTS: There were no complications. IMPRESSIONS: 1. Yellow-white plaques in the pharynx/epiglottis/hypopharynx 2. Yellow-white plaques in the upper esophagus eschar with areas mixed with dark black heme in the lower esophagus (tip at 30 cm, to GEJ at 38 cm, DI at 40 cm from the gums) 4. A small hiatal hernia 5. Moderate gastritis in the total stomach 6. Multiple ( 8) small 2-4 mm clean-based ulcers in the bulb of the duodenum 7. Duodenitis in the bulb of the duodenum RECOMMENDATIONS: 1. await biopsy results 2. acid suppression therapy 3. Protonix IV drip 4. Diflucan therapy REPEAT EXAM: Return in 2 month(s) for EGD. Leonardo Portillo Dr eSigned: Leonardo Portillo Dr 05/12/2018 2:26 PM cc: Artemio Baird CPT CODES: ICD9 CODES: PATIENT NAME: Ester Akins MR#: [id number]
[2018-05-12] MEDS: FLUCONAZOLE 200mg IVPB 200 MG/100 ML BAG IV SCH (15:20)
[2018-05-12] MEDS: PANTOPRAZOLE INJ 80 MG in NA CHLORIDE 0.9% 250 ML IV SCH (15:23)
[2018-05-12] MEDS: MORPHINE 4 MG/ML SYR IV PRN ×2 (16:11→22:58)
[2018-05-13] MEDS: PANTOPRAZOLE INJ 80 MG in NA CHLORIDE 0.9% 250 ML IV SCH ×4 (01:00→19:57)
[2018-05-13] MEDS: PROMETHAZINE 25 MG/ML VIAL IV PRN ×4 (03:13→19:58)
[2018-05-13 06:33] LABS: Absolute Lymphocytes (CBC) 2.2 K/uL (0.7-4.9); Absolute Neutrophil 7.8 K/uL (1.8-8.0); Basophils % 0.5 % (0-1.3); Eosinophils % 0.5 % (0-4.4); Hematocrit 37.6 % (36.0-45.0); Lymphocytes % 20.3 % (15.3-44.8); MCH 30.9 pg (27.0-35.0); MCV 89.2 fL (80-100); MPV 9.9 fL (7.6-11.3); RBC Red Blood Cell Count 4.22 M/uL (3.86-4.86)
[2018-05-13 06:56] LABS: Albumin 3.1 g/dL (3.4-5.0); Bilirubin Total 0.7 mg/dL (0.2-1.0); Magnesium 2.3 mg/dL (1.8-2.4); Protein, Total 6.4 g/dL (6.4-8.2)
[2018-05-13 07:05] LABS: Potassium 2.9 mmol/L (3.5-5.1)
[2018-05-13] MEDS: INSULIN -REGULAR HUMAN 50 UNIT/0.5 ML ML SQ SCH ×4 (07:30→20:13)
[2018-05-13] MEDS: MORPHINE 4 MG/ML SYR IV PRN ×3 (07:36→22:01)
--- NOTE | 2018-05-13 08:39 | RAD REPORT ---
EXAM DESCRIPTION: RAD - Chest Single View - 05/12/2018 10:20 pm CLINICAL HISTORY: Device placement PICC line placement FINDINGS: A PICC line has been inserted with its tip in the distal superior vena cava. The lungs appear clear of acute infiltrate. The heart is normal size. IMPRESSION: PICC line with its tip in the distal superior vena cava
[2018-05-13] MEDS: DULOXETINE 30 MG CAP PO SCH (08:45)
[2018-05-13] MEDS: KCL 20 MEQ/100 mL IVPB 20 MEQ/100 ML BAG IV SCH ×5 (08:45→19:57)
[2018-05-13] MEDS: LISINOPRIL 20 MG TAB PO SCH (08:45)
[2018-05-13] MEDS: SERTRALINE HCL 50 MG TAB PO SCH (08:46)
[2018-05-13] MEDS: ENOXAPARIN 40 MG/0.4 ML SQ SCH (08:46)
[2018-05-13] MEDS: CEFTRIAXONE/SWI 1gm 1 GM/10 ML SYR IV SCH (08:46)
--- NOTE | 2018-05-13 09:16 | P.PN ---
Subjective Date of Service: 05/13/18 Primary Care Provider: Alpa Duran NP Chief Complaint: Abdominal pain, n/v Subjective: Other (Patient doing better. Tolerating liquid diet.) Physical Examination - Vital Signs Temperature: 97.0 F Blood Pressure: 149/79 Pulse: 82 Respirations: 17 Pulse Ox (%): 95 - Physical Exam General: Alert, In no apparent distress, Oriented x3, Cooperative HEENT: Atraumatic Neck: Supple Respiratory: Clear to auscultation bilaterally, Normal air movement Cardiovascular: Normal pulses, Regular rate/rhythm Gastrointestinal: Normal bowel sounds, Soft and benign, Non-distended, No masses , No rebound, No guarding, Tenderness (Less pain to the epigastric region) Musculoskeletal: No erythema, No tenderness, No warmth Integumentary: No tenderness/swelling, No erythema, No warmth, No cyanosis Neurological: Normal speech, Normal strength at 5/5 x4 extr, Normal tone, Normal affect - Studies Medications List Reviewed: Yes Assessment & Plan Discharge Plan: Home Plan to discharge in: 48 Hours Physician Review Additional Text: Impression: Increased nausea and vomiting secondary to oral/esophageal candidiasis with noted Schatzki's ring, small hiatal hernia, moderate gastritis, multiple small duodenal ulcers and duodenitis Fatigue secondary to UTI-E coli Diabetes mellitus type 2 [id number] Fatty liver with noted liver cirrhosis likely related to nonalcoholic steatohepatitis Depression with anxiety Hypokalemia secondary to nausea and vomiting Plan: Increased nausea and vomiting secondary to oral/esophageal candidiasis with noted Schatzki's ring, small hiatal hernia, moderate gastritis, multiple small duodenal ulcers and duodenitis: EGD findings reviewed. Yellow white plaque in the pharynx, epiglottis, hypopharynx noted. Yellow white plaques in the upper esophagus with eschar with areas mixed with dark black heme in the lower esophagus. Schatzki's ring in the distal esophagus. A small hiatal hernia identified. Moderate gastritis in the total stomach noted. Multiple small 2-4 mm clean based ulcers in the bulb of the duodenum identified. Duodenitis in the bulb of the duodenum also identified. GI recommends Protonix IV drip with Diflucan therapy. Biopsies were obtained. Patient doing better with medication. Will advance diet to full liquid. If tolerates this then will increase to soft diet. Encourage ambulation. Continue IV fluids. Anticipate possible discharge in the next 48 hr. Will discuss further with GI Fatigue secondary to UTI-E coli: Will change antibiotic to Bactrim orally. Will monitor and adjust appropriately. Diabetes mellitus type 2 [id number]: Will continue insulin sliding scale. Will monitor Accu-Cheks. Metformin on hold. Fatty liver with noted liver cirrhosis likely related to nonalcoholic steatohepatitis: Dietary changes will need to be addressed. Await dietary consultation to further recommend. GI consulted to evaluate liver cirrhosis. Await further recommendations from GI. Depression with anxiety: Will continue with her medication. Hypokalemia secondary to nausea and vomiting: Will monitor and replace appropriately. Replacement protocol in place. Hypertension: Will continue with her medication. Time Spent Managing Pts Care (In Minutes): 55
--- NOTE | 2018-05-13 14:03 | P.PN ---
Subjective Date of Service: 05/13/18 Primary Care Provider: Alpa Duran NP Chief Complaint: TASHA pain, n/v, odynophagia Subjective: Improving (Feels much better today, able to swallow / tolerate clear liquids now on IV Protonix drip and Diflucan therapy.) Review of Systems 10-point ROS is otherwise unremarkable General: Weakness (Improved), Malaise (improved) Gastrointestinal: Nausea (Improved), Abdominal Pain (Improved) Physical Examination - Vital Signs Temperature: 96.8 F Blood Pressure: 135/74 Pulse: 93 Respirations: 18 Pulse Ox (%): 96 - Physical Exam General: Alert, In no apparent distress, Oriented x3, Cooperative, Disheveled HEENT: Atraumatic, Normocephalic, PERRLA, EOMI Neck: Supple Respiratory: Normal air movement Cardiovascular: Normal pulses Gastrointestinal: No rebound, No guarding, Tenderness (improved, minimal at most ) Neurological: Normal speech, Normal strength at 5/5 x4 extr - Studies Medications List Reviewed: Yes Assessment And Plan - Current Problems (Diagnosis) (1) Epigastric abdominal pain Current Visit: Yes Status: Acute Comment: Improved. (2) Odynophagia Current Visit: Yes Status: Acute (3) Esophagitis determined by endoscopy Current Visit: Yes Status: Acute (4) Esophageal varices Onset Date: 05/09/18 Current Visit: Yes Status: Acute Qualifiers: Esophageal varices bleeding: without bleeding (5) Hypernatremia Onset Date: 05/11/18 Current Visit: Yes Status: Acute (6) Hypokalemia Onset Date: 05/11/18 Current Visit: Yes Status: Acute (7) Intractable nausea and vomiting Onset Date: 05/09/18 Current Visit: Yes Status: Acute Qualifiers: Vomiting type: cyclical vomiting Qualified Code(s): G43.A1 - Cyclical vomiting, intractable (8) UTI (urinary tract infection) Onset Date: 05/11/18 Current Visit: Yes Status: Acute Qualifiers: Urinary tract infection type: acute cystitis Hematuria presence: without hematuria Qualified Code(s): N30.00 - Acute cystitis without hematuria (9) Diabetes mellitus type 2 in obese Onset Date: 05/09/18 Current Visit: Yes Status: Chronic (10) Fatty liver Onset Date: 05/09/18 Current Visit: Yes Status: Chronic - Plan REC: 1) continue IV Protonix drip and Diflucan therapy 2) continue CLs to FLs as tolerated Physician Review Additional Text: Impression: Increased nausea and vomiting secondary to oral/esophageal candidiasis with noted Schatzki's ring, small hiatal hernia, moderate gastritis, multiple small duodenal ulcers and duodenitis Fatigue secondary to UTI-E coli Diabetes mellitus type 2 [id number] Fatty liver with noted liver cirrhosis likely related to nonalcoholic steatohepatitis Depression with anxiety Hypokalemia secondary to nausea and vomiting Plan: Increased nausea and vomiting secondary to oral/esophageal candidiasis with noted Schatzki's ring, small hiatal hernia, moderate gastritis, multiple small duodenal ulcers and duodenitis: EGD findings reviewed. Yellow white plaque in the pharynx, epiglottis, hypopharynx noted. Yellow white plaques in the upper esophagus with eschar with areas mixed with dark black heme in the lower esophagus. Schatzki's ring in the distal esophagus. A small hiatal hernia identified. Moderate gastritis in the total stomach noted. Multiple small 2-4 mm clean based ulcers in the bulb of the duodenum identified. Duodenitis in the bulb of the duodenum also identified. GI recommends Protonix IV drip with Diflucan therapy. Biopsies were obtained. Patient doing better with medication. Will advance diet to full liquid. If tolerates this then will increase to soft diet. Encourage ambulation. Continue IV fluids. Anticipate possible discharge in the next 48 hr. Will discuss further with GI Fatigue secondary to UTI-E coli: Will change antibiotic to Bactrim orally. Will monitor and adjust appropriately. Diabetes mellitus type 2 [id number]: Will continue insulin sliding scale. Will monitor Accu-Cheks. Metformin on hold. Fatty liver with noted liver cirrhosis likely related to nonalcoholic steatohepatitis: Dietary changes will need to be addressed. Await dietary consultation to further recommend. GI consulted to evaluate liver cirrhosis. Await further recommendations from GI. Depression with anxiety: Will continue with her medication. Hypokalemia secondary to nausea and vomiting: Will monitor and replace appropriately. Replacement protocol in place. Hypertension: Will continue with her medication.
[2018-05-13] MEDS: FLUCONAZOLE 200mg IVPB 200 MG/100 ML BAG IV SCH (14:48)
[2018-05-13] MEDS: SMZ./TMP. 800/160 MG TABLET PO SCH (19:57)
[2018-05-13] MEDS: NACHLORIDE 0.45% 1,000 ML IV SCH ×2 (22:22)
[2018-05-14 04:32] LABS: Absolute Monocytes 0.9 K/uL (0.1-1.3); Absolute Neutrophil 7.1 K/uL (1.8-8.0); Basophils % 0.5 % (0-1.3); Hematocrit 36.9 % (36.0-45.0); MCH 30.9 pg (27.0-35.0); MCV 89.6 fL (80-100); MPV 10.3 fL (7.6-11.3); Monocytes % 8.5 % (3.3-12.3); RBC Red Blood Cell Count 4.11 M/uL (3.86-4.86)
[2018-05-14 04:46] LABS: BUN Blood Urea Nitrogen 7 mg/dL (7-18); Bicarbonate 27 mmol/L (21-32); Glucose Level 179 mg/dL (74-106); Magnesium 1.9 mg/dL (1.8-2.4); Phosphorus 1.8 mg/dL (2.5-4.9); Potassium 3.3 mmol/L (3.5-5.1); Sodium Level 141 mmol/L (136-145)
[2018-05-14] MEDS: KCL 20 MEQ/100 mL IVPB 20 MEQ/100 ML BAG IV SCH ×3 (05:04→23:37)
[2018-05-14] MEDS: PANTOPRAZOLE INJ 80 MG in NA CHLORIDE 0.9% 250 ML IV SCH ×2 (06:44→17:15)
[2018-05-14] MEDS: PROMETHAZINE 25 MG/ML VIAL IV PRN ×3 (06:45→21:54)
[2018-05-14] MEDS: INSULIN -REGULAR HUMAN 50 UNIT/0.5 ML ML SQ SCH ×4 (07:30→20:45)
[2018-05-14] MEDS ORDERED: POTASSIUM PHOS IN 0.9 % NACL 15 MMOL/250 ML BAG IV ONE (09:00)
[2018-05-14] MEDS: ENOXAPARIN 40 MG/0.4 ML SQ SCH ×2 (09:00→12:32)
[2018-05-14] MEDS: DULOXETINE 30 MG CAP PO SCH (10:00)
[2018-05-14] MEDS: LISINOPRIL 20 MG TAB PO SCH (10:00)
[2018-05-14] MEDS: SMZ./TMP. 800/160 MG TABLET PO SCH ×2 (10:01→21:08)
[2018-05-14] MEDS: SERTRALINE HCL 50 MG TAB PO SCH (10:05)
--- NOTE | 2018-05-14 10:13 | P.PN ---
Subjective Date of Service: 05/14/18 Primary Care Provider: Alpa Duran NP Chief Complaint: TASHA pain, n/v, odynophagia Subjective: Improving (Patient continues to improve. Patient tolerating current diet. No significant nausea vomiting this morning. No significant abdominal pain.) Physical Examination - Vital Signs Temperature: 98.4 F Blood Pressure: 165/86 Pulse: 79 Respirations: 16 Pulse Ox (%): 98 - Physical Exam General: Alert, In no apparent distress, Oriented x3, Cooperative HEENT: Atraumatic Neck: Supple Respiratory: Clear to auscultation bilaterally, Normal air movement Cardiovascular: Normal pulses, Regular rate/rhythm Gastrointestinal: Normal bowel sounds, Soft and benign, Non-distended, No tenderness, No masses, No rebound, No guarding Musculoskeletal: No erythema, No tenderness, No warmth Integumentary: No tenderness/swelling, No erythema, No warmth, No cyanosis Neurological: Normal speech, Normal strength at 5/5 x4 extr, Normal tone, Normal affect - Studies Medications List Reviewed: Yes Assessment & Plan Discharge Plan: Other (Home versus skilled placement) Plan to discharge in: 24 Hours Physician Review Additional Text: Impression: Increased nausea, vomiting and odynophagia secondary to oral/esophageal candidiasis with noted Schatzki's ring, small hiatal hernia, moderate gastritis , multiple small duodenal ulcers and duodenitis Fatigue secondary to UTI-E coli Diabetes mellitus type 2 [id number] Fatty liver with noted liver cirrhosis likely related to nonalcoholic steatohepatitis Depression with anxiety Hypokalemia secondary to nausea and vomiting Thrombocytopenia Plan: Increased nausea, vomiting, odynophagia secondary to oral/esophageal candidiasis with noted Schatzki's ring, small hiatal hernia, moderate gastritis , multiple small duodenal ulcers and duodenitis: EGD findings reviewed. Yellow white plaque in the pharynx, epiglottis, hypopharynx noted. Yellow white plaques in the upper esophagus with eschar with areas mixed with dark black heme in the lower esophagus. Schatzki's ring in the distal esophagus. A small hiatal hernia identified. Moderate gastritis in the total stomach noted. Multiple small 2-4 mm clean based ulcers in the bulb of the duodenum identified. Duodenitis in the bulb of the duodenum also identified. Will continue with Protonix IV drip and Diflucan. Patient seems to have improved. Will advance diet to soft as tolerated. Encourage ambulation. Patient still feels slightly weak. Will have physical therapy assess ambulation. Likely home in the next 1-2 days or will need to consider skilled placement if still with increased fatigue. Fatigue secondary to UTI-E coli: Will continue with Bactrim orally for total of 7 days. Will monitor and adjust appropriately. Diabetes mellitus type 2 [id number]: Will continue insulin sliding scale. Will monitor Accu-Cheks. Metformin on hold. Fatty liver with noted liver cirrhosis likely related to nonalcoholic steatohepatitis: Dietary changes will need to be addressed. Await dietary consultation to further recommend. GI consulted to evaluate liver cirrhosis. Await further recommendations from GI. Depression with anxiety: Will continue with her medication. Hypokalemia secondary to nausea and vomiting: Will monitor and replace appropriately. Replacement protocol in place. Hypertension: Will continue with her medication. Thrombocytopenia: Likely related to infection and inflammatory process. Will monitor closely. Time Spent Managing Pts Care (In Minutes): 55
--- NOTE | 2018-05-14 12:07 | P.PN ---
Subjective Date of Service: 05/14/18 Primary Care Provider: Alpa Duran NP Chief Complaint: TASHA pain, n/v, odynophagia Subjective: Improving (Continuing to feel better. Tolerating GI soft diet now. at bedside. Ambulating in hallways off and on.) Review of Systems 10-point ROS is otherwise unremarkable General: Weakness (Improved) Gastrointestinal: Nausea (improved), Abdominal Pain (improved) Physical Examination - Vital Signs Temperature: 98.4 F Blood Pressure: 165/86 Pulse: 79 Respirations: 16 Pulse Ox (%): 98 - Physical Exam General: Alert, In no apparent distress, Oriented x3, Cooperative HEENT: Atraumatic, Normocephalic, PERRLA, EOMI Neck: Supple Respiratory: Normal air movement Cardiovascular: Normal pulses Gastrointestinal: Soft and benign, No tenderness, No rebound, No guarding Neurological: Normal speech, Normal strength at 5/5 x4 extr - Studies Medications List Reviewed: Yes Assessment And Plan - Current Problems (Diagnosis) (1) Epigastric abdominal pain Current Visit: Yes Status: Acute Comment: Improved. (2) Odynophagia Current Visit: Yes Status: Acute (3) Esophagitis determined by endoscopy Current Visit: Yes Status: Acute (4) Esophageal varices Onset Date: 05/09/18 Current Visit: Yes Status: Acute Qualifiers: Esophageal varices bleeding: without bleeding (5) Hypernatremia Onset Date: 05/11/18 Current Visit: Yes Status: Acute (6) Hypokalemia Onset Date: 05/11/18 Current Visit: Yes Status: Acute (7) Intractable nausea and vomiting Onset Date: 05/09/18 Current Visit: Yes Status: Acute Qualifiers: Vomiting type: cyclical vomiting Qualified Code(s): G43.A1 - Cyclical vomiting, intractable (8) UTI (urinary tract infection) Onset Date: 05/11/18 Current Visit: Yes Status: Acute Qualifiers: Urinary tract infection type: acute cystitis Hematuria presence: without hematuria Qualified Code(s): N30.00 - Acute cystitis without hematuria (9) Diabetes mellitus type 2 in obese Onset Date: 05/09/18 Current Visit: Yes Status: Chronic (10) Fatty liver Onset Date: 05/09/18 Current Visit: Yes Status: Chronic - Plan REC: 1) IV Protonix to po bid on discharge and complete 4 days of Diflucan therapy tomorrow 2) continue GI soft diet 3) start Coreg with history of esophageal varices 4) repeat EGD in 6-8 weeks with possible esophageal banding(s) 5) liver work-up Physician Review Additional Text: Impression: Increased nausea, vomiting and odynophagia secondary to oral/esophageal candidiasis with noted Schatzki's ring, small hiatal hernia, moderate gastritis , multiple small duodenal ulcers and duodenitis Fatigue secondary to UTI-E coli Diabetes mellitus type 2 [id number] Fatty liver with noted liver cirrhosis likely related to nonalcoholic steatohepatitis Depression with anxiety Hypokalemia secondary to nausea and vomiting Thrombocytopenia Plan: Increased nausea, vomiting, odynophagia secondary to oral/esophageal candidiasis with noted Schatzki's ring, small hiatal hernia, moderate gastritis , multiple small duodenal ulcers and duodenitis: EGD findings reviewed. Yellow white plaque in the pharynx, epiglottis, hypopharynx noted. Yellow white plaques in the upper esophagus with eschar with areas mixed with dark black heme in the lower esophagus. Schatzki's ring in the distal esophagus. A small hiatal hernia identified. Moderate gastritis in the total stomach noted. Multiple small 2-4 mm clean based ulcers in the bulb of the duodenum identified. Duodenitis in the bulb of the duodenum also identified. Will continue with Protonix IV drip and Diflucan. Patient seems to have improved. Will advance diet to soft as tolerated. Encourage ambulation. Patient still feels slightly weak. Will have physical therapy assess ambulation. Likely home in the next 1-2 days or will need to consider skilled placement if still with increased fatigue. Fatigue secondary to UTI-E coli: Will continue with Bactrim orally for total of 7 days. Will monitor and adjust appropriately. Diabetes mellitus type 2 [id number]: Will continue insulin sliding scale. Will monitor Accu-Cheks. Metformin on hold. Fatty liver with noted liver cirrhosis likely related to nonalcoholic steatohepatitis: Dietary changes will need to be addressed. Await dietary consultation to further recommend. GI consulted to evaluate liver cirrhosis. Await further recommendations from GI. Depression with anxiety: Will continue with her medication. Hypokalemia secondary to nausea and vomiting: Will monitor and replace appropriately. Replacement protocol in place. Hypertension: Will continue with her medication. Thrombocytopenia: Likely related to infection and inflammatory process. Will monitor closely.
[2018-05-14] MEDS: MORPHINE 4 MG/ML SYR IV PRN ×2 (14:34→21:54)
[2018-05-14] MEDS: FLUCONAZOLE 200mg IVPB 200 MG/100 ML BAG IV SCH (15:18)
[2018-05-14] MEDS: NACHLORIDE 0.45% 1,000 ML IV SCH (21:09)
[2018-05-15] MEDS: KCL 20 MEQ/100 mL IVPB 20 MEQ/100 ML BAG IV SCH (01:23)
[2018-05-15] MEDS: PROMETHAZINE 25 MG/ML VIAL IV PRN ×2 (03:21→14:13)
[2018-05-15] MEDS: PANTOPRAZOLE INJ 80 MG in NA CHLORIDE 0.9% 250 ML IV SCH ×2 (03:28→13:18)
[2018-05-15 04:54] LABS: Absolute Lymphocytes (CBC) 1.8 K/uL (0.7-4.9); Absolute Monocytes 0.8 K/uL (0.1-1.3); Absolute Neutrophil 5.8 K/uL (1.8-8.0); Basophils % 0.7 % (0-1.3); Eosinophils % 2.4 % (0-4.4); Hematocrit 37.4 % (36.0-45.0); Lymphocytes % 20.2 % (15.3-44.8); MCH 30.7 pg (27.0-35.0); MCV 90.2 fL (80-100); MPV 10.2 fL (7.6-11.3); Monocytes % 9.3 % (3.3-12.3); RBC Red Blood Cell Count 4.15 M/uL (3.86-4.86)
[2018-05-15 05:20] LABS: BUN Blood Urea Nitrogen 5 mg/dL (7-18); Bicarbonate 27 mmol/L (21-32); Glucose Level 177 mg/dL (74-106); Magnesium 1.8 mg/dL (1.8-2.4); Phosphorus 2.6 mg/dL (2.5-4.9); Potassium 3.8 mmol/L (3.5-5.1); Protime INR 1.12; Sodium Level 138 mmol/L (136-145)
[2018-05-15] MEDS ORDERED: MAGNESIUM SULFATE 1 gm IVPB 1 GM/100 ML BAG IV ONE (07:00)
[2018-05-15] MEDS: INSULIN -REGULAR HUMAN 50 UNIT/0.5 ML ML SQ SCH ×4 (07:30→20:34)
[2018-05-15] MEDS: SMZ./TMP. 800/160 MG TABLET PO SCH ×2 (08:46→20:29)
[2018-05-15] MEDS: SERTRALINE HCL 50 MG TAB PO SCH (08:46)
[2018-05-15] MEDS: DULOXETINE 30 MG CAP PO SCH (08:46)
[2018-05-15] MEDS: LISINOPRIL 20 MG TAB PO SCH (08:47)
[2018-05-15] MEDS: ENOXAPARIN 40 MG/0.4 ML SQ SCH (08:47)
[2018-05-15] MEDS: NACHLORIDE 0.45% 1,000 ML IV SCH (15:41)
[2018-05-15] MEDS: FLUCONAZOLE 200mg IVPB 200 MG/100 ML BAG IV SCH (15:41)
--- NOTE | 2018-05-15 15:58 | P.PN ---
Subjective Date of Service: 05/15/18 Primary Care Provider: Alpa Duran NP Chief Complaint: TASHA pain, n/v, odynophagia Subjective: Other (Patient continues to improve. Some nausea noted this morning.) Physical Examination - Vital Signs Temperature: 97.3 F Blood Pressure: 155/78 Pulse: 85 Respirations: 16 Pulse Ox (%): 97 - Physical Exam General: Alert, In no apparent distress, Oriented x3, Cooperative HEENT: Atraumatic Neck: Supple Respiratory: Clear to auscultation bilaterally, Normal air movement Cardiovascular: Normal pulses, Regular rate/rhythm Gastrointestinal: Normal bowel sounds, Soft and benign, Non-distended, No tenderness, No masses, No rebound, No guarding Musculoskeletal: No erythema, No tenderness, No warmth Integumentary: No tenderness/swelling, No erythema, No warmth, No cyanosis Neurological: Normal speech, Normal strength at 5/5 x4 extr, Normal tone, Normal affect - Studies Medications List Reviewed: Yes Assessment & Plan Discharge Plan: Home Plan to discharge in: 24 Hours Physician Review Additional Text: Impression: Increased nausea, vomiting and odynophagia secondary to oral/esophageal candidiasis with noted Schatzki's ring, small hiatal hernia, moderate gastritis , multiple small duodenal ulcers and duodenitis, esophageal varices Fatigue secondary to UTI-E coli Diabetes mellitus type 2 [id number] Fatty liver with noted liver cirrhosis likely 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 Yellow white plaque in the pharynx, epiglottis, hypopharynx noted. Yellow white plaques in the upper esophagus with eschar with areas mixed with dark black heme in the lower esophagus. Schatzki's ring in the distal esophagus. A small hiatal hernia identified. Moderate gastritis in the total stomach noted. Multiple small 2-4 mm clean based ulcers in the bulb of the duodenum identified. Duodenitis in the bulb of the duodenum also identified. Will continue with Protonix and Diflucan. Anticipate discharge tomorrow. Patient will need to continue with Protonix 40 mg 1 pill twice daily and Diflucan for total 7 days. Will advance diet as tolerated. Encourage ambulation. Patient will need follow up with GI as an outpatient. Patient will need repeat EGD in 4-6 weeks for possible esophageal banding and workup for her fatty liver/liver cirrhosis. Case discussed at length with GI. Carvedilol added for her esophageal varices Fatigue secondary to UTI-E coli: Will continue with Bactrim orally for total of 7 days. Will change Bactrim to oral solution Will monitor and adjust appropriately. Diabetes mellitus type 2 [id number]: Will continue insulin sliding scale. Will monitor Accu-Cheks. Metformin on hold. Fatty liver with noted liver cirrhosis likely related to nonalcoholic steatohepatitis: Dietary changes addressed. GI to further evaluate patient as an outpatient. Autoimmune workup obtained. Depression with anxiety: Will continue with her medication. Hypokalemia secondary to nausea and vomiting: Will monitor and replace appropriately. Replacement protocol in place. Hypertension: Will continue with her medication. Carvedilol added for her esophageal varices. Thrombocytopenia: Likely related to infection and inflammatory process. Will monitor closely. I will turn the service over to Dr. Coburn tomorrow. I will go over the plan of care with her. Time Spent Managing Pts Care (In Minutes): 55
[2018-05-15] MEDS: CARVEDILOL 3.125 MG TAB PO SCH (17:04)
--- NOTE | 2018-05-15 18:52 | P.PN ---
Subjective Date of Service: 05/15/18 Primary Care Provider: Alpa Duran NP Chief Complaint: TASHA pain, n/v, odynophagia Subjective: Improving (Feels much better, tolerating GI soft diet well. at bedside.) Review of Systems General: Weakness (Improved.), Malaise (Improved.) Gastrointestinal: Abdominal Pain (Improved.) Physical Examination - Vital Signs Temperature: 98.4 F Blood Pressure: 155/78 Pulse: 85 Respirations: 16 Pulse Ox (%): 97 - Physical Exam General: Alert, In no apparent distress, Oriented x3, Cooperative HEENT: Atraumatic, Normocephalic, PERRLA, EOMI Neck: Supple Respiratory: Normal air movement Cardiovascular: Normal pulses Gastrointestinal: Soft and benign, No tenderness, No rebound, No guarding Neurological: Normal speech, Normal strength at 5/5 x4 extr - Studies Medications List Reviewed: Yes Assessment And Plan - Current Problems (Diagnosis) (1) Epigastric abdominal pain Current Visit: Yes Status: Acute Comment: Improved. (2) Odynophagia Current Visit: Yes Status: Acute Comment: Improved. (3) Esophagitis determined by endoscopy Current Visit: Yes Status: Acute (4) Esophageal varices Onset Date: 05/09/18 Current Visit: Yes Status: Acute Qualifiers: Esophageal varices bleeding: without bleeding (5) Hypernatremia Onset Date: 05/11/18 Current Visit: Yes Status: Acute (6) Hypokalemia Onset Date: 05/11/18 Current Visit: Yes Status: Acute (7) Intractable nausea and vomiting Onset Date: 05/09/18 Current Visit: Yes Status: Acute Comment: Improved. Qualifiers: Vomiting type: cyclical vomiting Qualified Code(s): G43.A1 - Cyclical vomiting, intractable (8) UTI (urinary tract infection) Onset Date: 05/11/18 Current Visit: Yes Status: Acute Qualifiers: Urinary tract infection type: acute cystitis Hematuria presence: without hematuria Qualified Code(s): N30.00 - Acute cystitis without hematuria (9) Diabetes mellitus type 2 in obese Onset Date: 05/09/18 Current Visit: Yes Status: Chronic (10) Fatty liver Onset Date: 05/09/18 Current Visit: Yes Status: Chronic - Plan REC: 1) IV Protonix to po bid on discharge 2) continue GI soft diet 3) increase Coreg to SBP =<110 goal, with history of esophageal varices 4) repeat EGD in 6-8 weeks with possible esophageal banding(s) 5) liver work-up Physician Review Additional Text: Impression: Increased nausea, vomiting and odynophagia secondary to oral/esophageal candidiasis with noted Schatzki's ring, small hiatal hernia, moderate gastritis , multiple small duodenal ulcers and duodenitis, esophageal varices Fatigue secondary to UTI-E coli Diabetes mellitus type 2 [id number] Fatty liver with noted liver cirrhosis likely 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 Yellow white plaque in the pharynx, epiglottis, hypopharynx noted. Yellow white plaques in the upper esophagus with eschar with areas mixed with dark black heme in the lower esophagus. Schatzki's ring in the distal esophagus. A small hiatal hernia identified. Moderate gastritis in the total stomach noted. Multiple small 2-4 mm clean based ulcers in the bulb of the duodenum identified. Duodenitis in the bulb of the duodenum also identified. Will continue with Protonix and Diflucan. Anticipate discharge tomorrow. Patient will need to continue with Protonix 40 mg 1 pill twice daily and Diflucan for total 7 days. Will advance diet as tolerated. Encourage ambulation. Patient will need follow up with GI as an outpatient. Patient will need repeat EGD in 4-6 weeks for possible esophageal banding and workup for her fatty liver/liver cirrhosis. Case discussed at length with GI. Carvedilol added for her esophageal varices Fatigue secondary to UTI-E coli: Will continue with Bactrim orally for total of 7 days. Will change Bactrim to oral solution Will monitor and adjust appropriately. Diabetes mellitus type 2 [id number]: Will continue insulin sliding scale. Will monitor Accu-Cheks. Metformin on hold. Fatty liver with noted liver cirrhosis likely related to nonalcoholic steatohepatitis: Dietary changes addressed. GI to further evaluate patient as an outpatient. Autoimmune workup obtained. Depression with anxiety: Will continue with her medication. Hypokalemia secondary to nausea and vomiting: Will monitor and replace appropriately. Replacement protocol in place. Hypertension: Will continue with her medication. Carvedilol added for her esophageal varices. Thrombocytopenia: Likely related to infection and inflammatory process. Will monitor closely. I will turn the service over to Dr. Coburn tomorrow. I will go over the plan of care with her.
[2018-05-15] MEDS: MORPHINE 4 MG/ML SYR IV PRN (22:22)
[2018-05-16] MEDS: PANTOPRAZOLE INJ 80 MG in NA CHLORIDE 0.9% 250 ML IV SCH ×2 (00:28→09:15)
[2018-05-16] MEDS: NACHLORIDE 0.45% 1,000 ML IV SCH (00:29)
[2018-05-16 05:39] LABS: Absolute Lymphocytes (CBC) 2.8 K/uL (0.7-4.9); Absolute Monocytes 0.9 K/uL (0.1-1.3); Absolute Neutrophil 4.8 K/uL (1.8-8.0); Basophils % 0.7 % (0-1.3); Eosinophils % 3.1 % (0-4.4); Hematocrit 34.5 % (36.0-45.0); Lymphocytes % 31.7 % (15.3-44.8); MCV 89.1 fL (80-100); MPV 11.5 fL (7.6-11.3); Monocytes % 10.6 % (3.3-12.3); RBC Red Blood Cell Count 3.87 M/uL (3.86-4.86)
[2018-05-16] MEDS: CARVEDILOL 3.125 MG TAB PO SCH (05:53)
[2018-05-16 05:54] LABS: BUN Blood Urea Nitrogen 4 mg/dL (7-18); Bicarbonate 30 mmol/L (21-32); Glucose Level 161 mg/dL (74-106); Potassium 3.2 mmol/L (3.5-5.1); Sodium Level 138 mmol/L (136-145)
[2018-05-16] MEDS: KCL 20 MEQ/100 mL IVPB 20 MEQ/100 ML BAG IV SCH ×2 (07:00→09:04)
[2018-05-16] MEDS: INSULIN -REGULAR HUMAN 50 UNIT/0.5 ML ML SQ SCH ×2 (07:30→11:30)
[2018-05-16] MEDS: ENOXAPARIN 40 MG/0.4 ML SQ SCH (09:04)
[2018-05-16] MEDS: LISINOPRIL 20 MG TAB PO SCH (09:05)
[2018-05-16] MEDS: SERTRALINE HCL 50 MG TAB PO SCH (09:05)
[2018-05-16] MEDS: SMZ./TMP. 800/160 MG TABLET PO SCH (09:05)
[2018-05-16] MEDS: DULOXETINE 30 MG CAP PO SCH (09:05)
[2018-05-16] MEDS: SODIUM CHLORIDE 0.9% 10ML INJ IV PRN (09:05)
[2018-05-16 09:12] VITALS: O2SAT 97
[2018-05-16 12:42] VITALS: BP 138/74; TEMP 97.7
--- NOTE | 2018-05-16 15:07 | P.DS ---
Admission Date: 05/10/18 Discharge Date: 05/16/18 Primary Care Provider: Alpa Duran NP Disposition: ROUTINE DISCHARGE Discharge Condition: GOOD Reason for Admission: TASHA pain, n/v, odynophagia Consultations: GI Procedures: EGD - Problems (1) Intractable nausea and vomiting Onset Date: 05/09/18 Status: Resolved Qualifiers: Vomiting type: cyclical vomiting Qualified Code(s): G43.A1 - Cyclical vomiting, intractable (2) UTI (urinary tract infection) Onset Date: 05/11/18 Status: Acute Qualifiers: Urinary tract infection type: acute cystitis Hematuria presence: without hematuria Qualified Code(s): N30.00 - Acute cystitis without hematuria (3) Diabetes mellitus type 2 in obese Onset Date: 05/09/18 Status: Chronic (4) Fatty liver Onset Date: 05/09/18 Status: Chronic (5) Hypertension Onset Date: 05/09/18 Status: Chronic Qualifiers: Hypertension type: essential hypertension Qualified Code(s): I10 - Essential (primary) hypertension (6) Esophageal varices Onset Date: 05/09/18 Status: Acute Qualifiers: Esophageal varices bleeding: without bleeding (7) Esophagitis determined by endoscopy Status: Acute (8) Odynophagia Status: Acute Brief History of Present Illness: 58 yr old female with hx of it's diabetes hypertension admitted for abdominal pain, nausea and vomiting for the past 1 week. She describes it as annoying pain tests had a 10 without any radiation. Alleviated with pain medications that she received in the ED. Any movement or walking makes lower abdominal pain worse. She denies any blood in the vomitus, denies any spitting up blood. States that she has not had a bowel movement in the past 1 week. Her normal bowel movement ranges from anywhere between 1-3 days. At the time of my examination, patient was alert oriented x3 in mild distress due to abdominal pain. Hospital Course: Overall during the hospital stay patient and stable The patient was initially admitted to the hospital for nausea vomiting along with dehydration. Patient had intractable nausea vomiting here in the hospital which was not resolving this GI consultation was done here in the hospital. GI did an EGD on the patient was found to have Yellow white plaque in the pharynx, epiglottis, hypopharynx noted. Yellow white plaques in the upper esophagus with eschar with areas mixed with dark black heme in the lower esophagus. Schatzki' s ring in the distal esophagus. A small hiatal hernia identified. Moderate gastritis in the total stomach noted. Multiple small 2-4 mm clean based ulcers in the bulb of the duodenum identified. Duodenitis in the bulb of the duodenum also identified. Patient was recommended to continue on IV Protonix, Diflucan, close monitoring for H&H. Patient did well overall with Protonix and Diflucan here in the hospital. Intractable nausea vomiting did resolve here in the hospital patient was advanced to a clear liquid diet and did well overall. Patient also had a UA which was concerning for UTI. Urine culture was growing positive for E. coli. Due to Augmentin. Patient after having resolution of her symptoms and was discharged home under stable condition with prescriptions for Augmentin, Diflucan and Protonix. Patient was asked to continue taking her medication as prescribed by her primary care doctor along with the new medication prescribed from the hospital. Patient demonstrated understanding and thus was discharged home under stable condition Vital Signs/Physical Exam: Temp Pulse Resp BP Pulse Ox 97.7 F 75 16 138/74 98 05/16/18 12:00 05/16/18 12:00 05/16/18 12:00 05/16/18 12:00 05/16/18 12:00 General: Alert, In no apparent distress HEENT: Atraumatic, PERRLA, EOMI Neck: Supple, JVD not distended Respiratory: Clear to auscultation bilaterally, Normal air movement Cardiovascular: Regular rate/rhythm, Normal S1 S2 Gastrointestinal: Normal bowel sounds, No tenderness Musculoskeletal: No tenderness Integumentary: No rashes Neurological: Normal speech, Normal tone, Normal affect Lymphatics: No axilla or inguinal lymphadenopathy Laboratory Data at Discharge: WBC 9.0 K/uL (4.3-10.9) 05/16/18 04:40 Hgb 12.0 g/dL (12.0-15.0) 05/16/18 04:40 Hct 34.5 % (36.0-45.0) L 05/16/18 04:40 Plt Count 87 K/uL (152-406) L D 05/16/18 04:40 PT 13.2 SECONDS (9.5-12.5) H 05/15/18 04:30 INR 1.12 05/15/18 04:30 APTT 25.3 SECONDS (24.3-36.9) 05/15/18 04:30 Sodium 138 mmol/L (136-145) 05/16/18 04:40 Potassium 3.2 mmol/L (3.5-5.1) L 05/16/18 04:40 BUN 4 mg/dL (7-18) L 05/16/18 04:40 Creatinine 0.40 mg/dL (0.55-1.3) L 05/16/18 04:40 Glucose 161 mg/dL (74-106) H 05/16/18 04:40 Phosphorus 2.6 mg/dL (2.5-4.9) 05/15/18 04:30 Magnesium 2.0 mg/dL (1.8-2.4) 05/16/18 04:40 Total Bilirubin 0.7 mg/dL (0.2-1.0) 05/13/18 06:15 AST 14 U/L (15-37) L 05/13/18 06:15 ALT 21 U/L (12-78) 05/13/18 06:15 Alkaline Phosphatase 60 U/L (45-117) 05/13/18 06:15 Lipase 328 U/L (73-393) 05/08/18 09:15 Home Medications: Dapagliflozin Propanediol [Farxiga] 1 tab PO DAILY 05/08/18 Dulaglutide [Trulicity] 1.5 mg SQ DIRECTED 05/08/18 Duloxetine HCl 1 cap PO DAILY 05/08/18 Lisinopril/Hydrochlorothiazide [Lisinopril-Hctz 20-12.5 mg Tab] 1 tab PO DAILY 05/08/18 Metformin HCl 1,000 mg PO BIDWM 05/08/18 Sertraline HCl 1 tab PO DAILY 05/08/18 Carvedilol [Coreg*] 3.125 mg PO BID 6AM 6PM #60 tab 05/16/18 Fluconazole [Diflucan] 200 mg PO DAILY #21 tablet 05/16/18 Smz./Tmp. [Bactrim Ds 800 MG/160 MG*] 1 tab PO BID #28 tab 05/16/18 New Medications: Carvedilol [Coreg*] 3.125 mg PO BID 6AM 6PM #60 tab Fluconazole [Diflucan] 200 mg PO DAILY #21 tablet Smz./Tmp. [Bactrim Ds 800 MG/160 MG*] 1 tab PO BID #28 tab Patient Discharge Instructions: Please f,u with GI in 1 to 2 week post discharge. New medication. Lisinopril. Coreg. Diflucan 200mg daily for 21 days. Bactrim DS BID for 14 days. Protonox Diet: Regular Activity: Ad ronit Followup: Leonardo Portillo MD [ASSOCIATE-ACTIVE - CAN ADMIT] - 1 Week (Call for appointment.)
[2018-05-17 17:43] LABS: HIV 1/2 Antibody Diff Not indicated.; HIV AG/AB 4TH GEN Non-reactive (Non-reactive)
[2018-05-17 19:12] LABS: HBsAG Nonreactive (Nonreactive); Hepatitis A IgM Antibody Nonreactive; P-ANCA Anti-Myeloperoxidase Ab <1.0 AI (<1.0)
[2018-05-18 00:19] LABS: Immunoglobulin A 323 mg/dL (81-463); Tissue Transglutaminase IgA Ab 1 U/mL (<4)
[2018-05-18 19:10] LABS: Alpha Fetoprotein-Tumor Marker 2.5 ng/mL (<6.1)
== END 2018-05-16 12:54 | disposition home or self-care (01) | DRG 369 ==
LOC: ER 08:49 → ERHOLD 13:17 → 2ND 15:41 → OBSVTOIN 05-10 17:44
PROVIDERS: ADMIT Family Medicine; ATTEND Family Medicine
PROC: 02HV33Z Insertion of Infusion Device into Superior Vena Cava, Percutaneous Approach (ICD-10-PCS; 2018-05-12)
PROC: 0DB68ZX Excision of Stomach, Via Natural or Artificial Opening Endoscopic, Diagnostic (ICD-10-PCS; principal; 2018-05-12 14:00)
DX: B37.81 Candidal esophagitis (principal); N30.00 Acute cystitis without hematuria; I85.10 Secondary esophageal varices without bleeding; E87.0 Hyperosmolality and hypernatremia; G43.A1 Cyclical vomiting, in migraine, intractable; I10 Essential (primary) hypertension; E86.0 Dehydration; R13.10 Dysphagia, unspecified; B96.20 Unspecified Escherichia coli [E. coli] as the cause of diseases classified elsewhere; F32.9 Major depressive disorder, single episode, unspecified; Z87.891 Personal history of nicotine dependence; K44.9 Diaphragmatic hernia without obstruction or gangrene; E87.8 Other disorders of electrolyte and fluid balance, not elsewhere classified; E87.6 Hypokalemia; K22.2 Esophageal obstruction; K29.70 Gastritis, unspecified, without bleeding; K29.80 Duodenitis without bleeding; K26.9 Duodenal ulcer, unspecified as acute or chronic, without hemorrhage or perforation; K21.0 Gastro-esophageal reflux disease with esophagitis; K75.81 Nonalcoholic steatohepatitis (NASH); E11.43 Type 2 diabetes mellitus with diabetic autonomic (poly)neuropathy; K31.84 Gastroparesis; F41.9 Anxiety disorder, unspecified; D69.6 Thrombocytopenia, unspecified; K74.60 Unspecified cirrhosis of liver
CPT/HCPCS: 36415; 71045; 74177; 80048; 80053; 80074; 80076; 81001; 82103; 82105; 82390; 82784; 82962; 83516; 83605; 83690; 83735; 84100; 84132; 85025; 85610; 85730; 86021; 86038; 86255; 86376; 86706; 86708; 87077; 87086; 87088; 87186; 87389; 88305; 88312; 90670; 94760; 97163; 99285; C9113; G0008; G0009; G0378; J0696; J1450; J1650; J2405; J2550; J2765; J3010; J3475; J7030; Q2035; Q9967

== ENCOUNTER 2018-07-04 06:20 | Day surgery (SDC) | payer OTHER ==
--- OUTSIDE RECORDS SUMMARY | 2018-07-04 06:36 | XMS REPORT ---
:1960 Author Organization [employer] Care Team Providers Name Role Phone LatahMiranda cárdenasy Provider Role Unavailable Allergies No Known Allergies Problems Problem Type Condition Code Onset Dates Condition Status Problem Tinea unguium B35.1 Active Problem Age-related nuclear cataract of both H25.13 Active eyes Problem Hematuria, microscopic R31.29 Active Problem Memory changes R41.3 Active Problem Essential (primary) hypertension I10 Active Problem Dysthymic disorder F34.1 Active Problem Type 2 diabetes mellitus without E11.9 Active complication, unspecified whether usp insulin use Problem Other insomnia 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.09 Active substance or known physiological condition Medications No Known Medications Results No Known Results Summary Purpose [employer]ClinicalWorks Submission
--- OUTSIDE RECORDS SUMMARY | 2018-07-04 06:36 | XMS REPORT ---
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
--- OUTSIDE RECORDS SUMMARY | 2018-07-04 06:36 | XMS REPORT ---
:1960 Author Organization [employer] Care Team Providers Name Role Phone AngolaMiranda cárdenasy Provider Role Unavailable Allergies No Known Allergies Problems Problem Type Condition Code Onset Dates Condition Status Problem Tinea unguium B35.1 Active Problem Age-related nuclear cataract of both H25.13 Active eyes Problem Hematuria, microscopic R31.29 Active Problem Memory changes R41.3 Active Problem Essential (primary) hypertension I10 Active Problem Dysthymic disorder F34.1 Active Problem Type 2 diabetes mellitus without E11.9 Active complication, unspecified whether roasterman insulin use Problem Other insomnia 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.09 Active substance or known physiological condition Medications No Known Medications Results No Known Results Summary Purpose eClinicalWorks Submission
--- OUTSIDE RECORDS SUMMARY | 2018-07-04 06:36 | XMS REPORT ---
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 whether ferry terminal agent insulin use Problem Tinea unguium B35.1 Active Assessment Memory changes R41.3 Active Assessment Dysthymic disorder F34.1 Active Problem Age-related nuclear cataract of both H25.13 Active eyes Problem Hematuria, microscopic R31.29 Active Problem Memory changes R41.3 Active Problem Essential (primary) hypertension I10 Active Problem Dysthymic disorder F34.1 Active Problem Type 2 diabetes mellitus without E11.9 Active complication, unspecified whether ferry terminal agent insulin use Problem Other insomnia 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.09 Active substance or known physiological condition Medications Medication Code Code Instructions Start End Status Dosage System Date Date Trulicity [facility] 63517607848 1.5 MG/0.5ML Jul 12May 06, Active 1.5 mg Subcutaneous 2015 2017 once weekly FreeStyle Lite [facility] 90877979591 - In Vitro once October Active as directed Test daily 2017 Sertraline HCl ND 10915662704 50 MG Orally October Active take one Once a day 2016 tablet by mouth daily Metformin HCl ND 49996085026 1000 MG Orally Sep 11, Active 1 tablet Twice a day 2015 with meals Farxiga ND 51750282961 10 MG Active TAKE ONE TABLET BY MOUTH EVERY MORNING Cymbalta ND 25474197342 60 Orally Once a Active take one day capsule by mouth daily Zestoretic ND 84411480076 20-12.5 Active TAKE ONE TABLET BY MOUTH DAILY Results No Known Results Summary Purpose eClinicalWorks Submission
[2018-07-04] MEDS ORDERED: NA CHLORIDE 0.9% 1,000 ML ONE ×2 (07:08→08:44)
[2018-07-04] MEDS ORDERED: PROPOFOL 200 MG/20 ML VIAL IV ONE ×2 (08:42→09:10)
[2018-07-04] MEDS ORDERED: LIDOCAINE 1% MPF 5 ML VIAL ONE (08:42)
--- NOTE | 2018-07-04 09:08 | ENDO RPT ---
[address], [address] EGD PROCEDURE REPORT EXAM DATE: 07/04/2018 PATIENT NAME: Ester Akins MR#: [id number] BIRTHDATE: 1960 ATTENDING: Leonardo Portillo Dr STATUS: outpatient CARRIER BLOWER: Felipa Pedro, Ame Pedro, and Bryanna Trejo RN INDICATIONS: The patient is a 58 yr old Female here for an EGD due to surveillance PROCEDURE PERFORMED: EGD with biopsy and EGD with banding MEDICATIONS: Per Anesthesia. TOPICAL ANESTHETIC: none CONSENT: The patient understands the risks and benefits of the procedure and understands that these risks include, but are not limited to: sedation, allergic reaction, infection, perforation and/or bleeding. Alternative means of evaluation and treatment include, among others: physical exam, x-rays, and/or surgical intervention. The patient elects to proceed with this endoscopic procedure. DESCRIPTION OF PROCEDURE: During intra-op preparation period all mechanical medical equipment was checked for proper function. Hand hygiene and appropriate measures for infection prevention was taken. Procedure, possible complications, and alternatives including but not limited to the possibility of bleeding, perforation, tear, infection, sepsis, need for surgery, need for blood transfusion, and anesthesia related complications were explained to the patient. After the risks, benefits and alternatives of the procedure were thoroughly explained, Informed consent was verified, confirmed and timeout was successfully executed by the treatment team. The patient was placed in the left lateral position. The patient was anesthetized with topical anesthesia. Through the anesthetized oropharyngeal area, the scope was passed without any difficulty. The Pentax [id number] ([id number]) endoscope was introduced through the mouth and advanced to the second portion of the duodenum. Retroflexed views revealed no abnormalities. The gastroscope was then slowly withdrawn and removed. Three columns of grade II varices were found in the lower esophagus. Banding was performed X3. Portal hypertensive gastropathy was found in the body of the stomach. Mild gastritis was found in the antrum. Multiple biopsies were obtained and sent to pathology. ADVERSE EVENTS: There were no complications. IMPRESSIONS: 1. Three columns of grade II varices in the lower esophagus, s/p banding X3 2. Mild portal hypertensive gastropathy in the body of the stomach 3. Mild gastritis in the antrum, s/p biopsies RECOMMENDATIONS: 1. await biopsy results 2. acid suppression therapy 3. Propanolol or Coreg REPEAT EXAM: Return in 3 week(s) for EGD. Leonardo Portillo Dr eSigned: Leonardo Portillo Dr 07/04/2018 9:07 AM cc: Dee Dee Duran CPT CODES: ICD9 CODES: PATIENT NAME: Ester Akins MR#: [id number]
[2018-07-04 09:10] VITALS: TEMP 98
--- NOTE | 2018-07-04 09:14 | ENDO RPT ---
[address], [address] EGD PROCEDURE REPORT EXAM DATE: 07/04/2018 PATIENT NAME: Ester Akins MR#: [id number] BIRTHDATE: 1960 ATTENDING: Leonardo Portillo Dr STATUS: outpatient CHANGE MANAGER: Felipa Pedro, Ame Pedro, and Bryanna Trejo RN INDICATIONS: The patient is a 58 yr old Female here for an EGD due to surveillance of esophageal varices with history of cirrhosis of the liver PROCEDURE PERFORMED: EGD with biopsy and EGD with banding MEDICATIONS: Per Anesthesia. TOPICAL ANESTHETIC: none CONSENT: The patient understands the risks and benefits of the procedure and understands that these risks include, but are not limited to: sedation, allergic reaction, infection, perforation and/or bleeding. Alternative means of evaluation and treatment include, among others: physical exam, x-rays, and/or surgical intervention. The patient elects to proceed with this endoscopic procedure. DESCRIPTION OF PROCEDURE: During intra-op preparation period all mechanical medical equipment was checked for proper function. Hand hygiene and appropriate measures for infection prevention was taken. Procedure, possible complications, and alternatives including but not limited to the possibility of bleeding, perforation, tear, infection, sepsis, need for surgery, need for blood transfusion, and anesthesia related complications were explained to the patient. After the risks, benefits and alternatives of the procedure were thoroughly explained, Informed consent was verified, confirmed and timeout was successfully executed by the treatment team. The patient was placed in the left lateral position. The patient was anesthetized with topical anesthesia. Through the anesthetized oropharyngeal area, the scope was passed without any difficulty. The Pentax EG-[id number] ([id number]) endoscope was introduced through the mouth and advanced to the second portion of the duodenum. Retroflexed views revealed no abnormalities. The gastroscope was then slowly withdrawn and removed. Three columns of grade II varices were found in the lower esophagus. Banding was performed X3. Portal hypertensive gastropathy was found in the body of the stomach. Mild gastritis was found in the antrum. Multiple biopsies were obtained and sent to pathology. ADVERSE EVENTS: There were no complications. IMPRESSIONS: 1. Three columns of grade II varices in the lower esophagus, s/p banding X3 2. Mild portal hypertensive gastropathy in the body of the stomach 3. Mild gastritis in the antrum, s/p biopsies RECOMMENDATIONS: 1. await biopsy results 2. acid suppression therapy 3. Propanolol or Coreg REPEAT EXAM: Return in 3 week(s) for EGD. Leonardo Portillo Dr eSigned: Leonardo Portillo Dr 07/04/2018 9:13 AM Revised: 07/04/2018 9:13 AM cc: eDe Dee Duran CPT CODES: ICD9 CODES: PATIENT NAME: Ester Akins MR#: [id number]
[2018-07-04 09:17] VITALS: BP 122/73; O2SAT 100
== END 2018-07-04 09:24 | disposition home or self-care (01) ==
LOC: OR 06:20
PROVIDERS: ATTEND Internal Medicine Gastroenterology
PROC: 0DB68ZX Excision of Stomach, Via Natural or Artificial Opening Endoscopic, Diagnostic (ICD-10-PCS; 2018-07-04)
PROC: 06L38CZ Occlusion of Esophageal Vein with Extraluminal Device, Via Natural or Artificial Opening Endoscopic (ICD-10-PCS; principal; 2018-07-04 07:30)
DX: I85.00 Esophageal varices without bleeding (principal); K76.6 Portal hypertension; K31.89 Other diseases of stomach and duodenum; K74.60 Unspecified cirrhosis of liver; K29.50 Unspecified chronic gastritis without bleeding
CPT/HCPCS: 82962; 88305; 88312; J2704; J7030

== ENCOUNTER 2018-08-08 06:59 | Day surgery (SDC) | payer OTHER ==
--- OUTSIDE RECORDS SUMMARY | 2018-08-08 07:03 | XMS REPORT ---
:1960 Author Organization eClinicalWorks Care Team Providers Name Role Phone CottleMiranda cárdenasy Provider Role Unavailable Allergies No Known Allergies Problems Problem Type Condition Code Onset Dates Condition Status Problem Tinea unguium B35.1 Active Problem Age-related nuclear cataract of both H25.13 Active eyes Problem Hematuria, microscopic R31.29 Active Problem Memory changes R41.3 Active Problem Essential (primary) hypertension I10 Active Problem Dysthymic disorder F34.1 Active Problem Type 2 diabetes mellitus without E11.9 Active complication, unspecified whether retirement insulin use Problem Other insomnia 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.09 Active substance or known physiological condition Medications No Known Medications Results No Known Results Summary Purpose eClinicalWorks Submission
--- OUTSIDE RECORDS SUMMARY | 2018-08-08 07:03 | XMS REPORT ---
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 Problem Dysthymic disorder F34.1 Active Problem Fatty liver K76.0 Active Problem Duodenal ulcer K26.9 Active Problem Bleeding esophageal varices, I85.01 Active unspecified esophageal varices type Problem Other insomnia 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.09 Active substance or known physiological condition Problem Hematuria, microscopic R31.29 Active Problem Age-related nuclear cataract of both H25.13 Active eyes Problem Memory changes R41.3 Active Assessment Essential (primary) hypertension I10 Active Assessment Type 2 diabetes mellitus without E11.9 Active complication, unspecified whether retirement insulin use Assessment Dysthymic disorder F34.1 Active Problem Essential (primary) hypertension I10 Active Medications Medication Code Code Instructions Start End Status Dosage System Date Date [facility] 89791562419 - In Vitro once October Active as directed Test daily 2017 Protonix [facility] 15551983641 40 MG Orally Active 1 tablet Once a day Farxiga [facility] 86990992791 10 Active TAKE ONE TABLET BY MOUTH EVERY MORNING Metformin HCl [facility] 23961112182 1000 MG Orally Sep 11, Active 1 tablet Twice a day 2015 with meals Zestoretic [facility] 41490318392 20-12.5 Active TAKE ONE TABLET BY MOUTH DAILY Duloxetine HCl ND 77258398929 60 MG Orally Active 1 capsule Once a day Cymbalta ND 50680806282 60 Orally Once Active take one a day capsule by mouth daily Trulicity [facility] 18709744966 1.5mg/0.5ml SQ Active 1 injection once a week Sertraline HCl [facility] 76373250679 50 MG Orally October Active take one Once a day 2016 tablet by mouth daily Results No Known Results Summary Purpose eClinicalWorks Submission
--- OUTSIDE RECORDS SUMMARY | 2018-08-08 07:03 | XMS REPORT ---
:1960 Author Organization eClinicalWorks Care Team Providers Name Role Phone Ashly Duran Provider Role Unavailable Allergies No Known Allergies Problems Problem Type Condition Code Onset Dates Condition Status Problem Dysthymic disorder F34.1 Active Problem Tinea unguium B35.1 Active Problem Essential (primary) hypertension I10 Active Problem Type 2 diabetes mellitus without E11.9 Active complication, unspecified whether terminal carman insulin use Problem Other insomnia 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.09 Active substance or known physiological condition Problem Hematuria, microscopic R31.29 Active Medications No Known Medications Results No Known Results Summary Purpose eClinicalWorks Submission
--- OUTSIDE RECORDS SUMMARY | 2018-08-08 07:03 | XMS REPORT ---
:1960 Author Organization eClinicalWorks Care Team Providers Name Role Phone [place] c[place] Provider Role Unavailable Allergies No Known Allergies Problems Problem Type Condition Code Onset Dates Condition Status Problem Tinea unguium B35.1 Active Problem Age-related nuclear cataract of both H25.13 Active eyes Problem Hematuria, microscopic R31.29 Active Problem Memory changes R41.3 Active Problem Essential (primary) hypertension I10 Active Problem Dysthymic disorder F34.1 Active Problem Type 2 diabetes mellitus without E11.9 Active complication, unspecified whether buttermaker continuous churn insulin use Problem Other insomnia 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.09 Active substance or known physiological condition Medications No Known Medications Results No Known Results Summary Purpose eClinicalWorks Submission
--- OUTSIDE RECORDS SUMMARY | 2018-08-08 07:03 | XMS REPORT ---
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 whether petroleum terminal plant operator insulin use Problem Tinea unguium B35.1 Active Assessment Memory changes R41.3 Active Assessment Dysthymic disorder F34.1 Active Problem Age-related nuclear cataract of both H25.13 Active eyes Problem Hematuria, microscopic R31.29 Active Problem Memory changes R41.3 Active Problem Essential (primary) hypertension I10 Active Problem Dysthymic disorder F34.1 Active Problem Type 2 diabetes mellitus without E11.9 Active complication, unspecified whether petroleum terminal plant operator insulin use Problem Other insomnia 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.09 Active substance or known physiological condition Medications Medication Code Code Instructions Start End Status Dosage System Date Date Trulicity [facility] 75435371297 1.5 MG/0.5ML Jul 12May 06, Active 1.5 mg Subcutaneous 2015 2017 once weekly FreeStyle Lite [facility] 99719906321 - In Vitro once October Active as directed Test daily 2017 Sertraline HCl ND 85690596950 50 MG Orally October Active take one Once a day 2016 tablet by mouth daily Metformin HCl ND 50629881158 1000 MG Orally Sep 11, Active 1 tablet Twice a day 2015 with meals Farxiga ND 43230787333 10 MG Active TAKE ONE TABLET BY MOUTH EVERY MORNING Cymbalta ND 98467890241 60 Orally Once a Active take one day capsule by mouth daily Zestoretic ND 87840323202 20-12.5 Active TAKE ONE TABLET BY MOUTH DAILY Results No Known Results Summary Purpose eClinicalWorks Submission
--- OUTSIDE RECORDS SUMMARY | 2018-08-08 07:03 | XMS REPORT ---
:1960 [facility] Address [address] [place] [address] Dr. Marino [address] [place] [address] Care Team Providers Name Role Phone Unavailable Unavailable Unavailable Problems This patient has no known problems. Allergies, Adverse Reactions, Alerts This patient has no known allergies or adverse reactions. Medications This patient has no known medications.
[2018-08-08] MEDS ORDERED: NA CHLORIDE 0.9% 1,000 ML ONE (07:23)
[2018-08-08] MEDS ORDERED: LIDOCAINE 1% MPF 5 ML VIAL ONE (08:43)
[2018-08-08] MEDS ORDERED: PROPOFOL 200 MG/20 ML VIAL IV ONE (08:43)
--- NOTE | 2018-08-08 09:03 | ENDO RPT ---
[address], [address] EGD PROCEDURE REPORT EXAM DATE: 08/08/2018 PATIENT NAME: Ester Akins MR#: [id number] BIRTHDATE: 1960 ATTENDING: Leonardo Portillo Dr STATUS: outpatient LINE PILOT: Lauren Hilario RN, Sylvia Vega RN, and Ame Campuzano Tech INDICATIONS: The patient is a 58 yr old Female here for an EGD due to surveillance and bleeding varices PROCEDURE PERFORMED: EGD with banding MEDICATIONS: Per Anesthesia. TOPICAL ANESTHETIC: none CONSENT: The patient understands the risks and benefits of the procedure and understands that these risks include, but are not limited to: sedation, allergic reaction, infection, perforation and/or bleeding. Alternative means of evaluation and treatment include, among others: physical exam, x-rays, and/or surgical intervention. The patient elects to proceed with this endoscopic procedure. DESCRIPTION OF PROCEDURE: During intra-op preparation period all mechanical medical equipment was checked for proper function. Hand hygiene and appropriate measures for infection prevention was taken. Procedure, possible complications, and alternatives including but not limited to the possibility of bleeding, perforation, tear, infection, sepsis, need for surgery, need for blood transfusion, and anesthesia related complications were explained to the patient. After the risks, benefits and alternatives of the procedure were thoroughly explained, Informed consent was verified, confirmed and timeout was successfully executed by the treatment team. The patient was placed in the left lateral position. The patient was anesthetized with topical anesthesia. Through the anesthetized oropharyngeal area, the scope was passed without any difficulty. The Pentax EG-2990i ([id number]) endoscope was introduced through the mouth and advanced to the second portion of the duodenum. Retroflexed views revealed no abnormalities. The gastroscope was then slowly withdrawn and removed. Two columns of grade II varices were found in the lower esophagus. Esophageal banding was performed X3. Mild gastritis was found in the body of the stomach. ADVERSE EVENTS: There were no complications. IMPRESSIONS: 1. Two columns of grade II varices in the lower esophagus, s/p banding X3 2. Mild gastritis (bile induced) in the body of the stomach (prior biopsies 07-04-18) RECOMMENDATIONS: acid suppression therapy REPEAT EXAM: Return in 3 week(s) for EGD. Leonardo Portillo Dr eSigned: Leonardo Portillo Dr 08/08/2018 9:03 AM cc: Dee Dee Duran CPT CODES: ICD9 CODES: PATIENT NAME: Ester Akins MR#: [id number]
--- NOTE | 2018-08-08 09:29 | ENDO RPT ---
[address], [address] COLONOSCOPY PROCEDURE REPORT EXAM DATE: 08/08/2018 PATIENT NAME: Ester Akins MR #: [id number] BIRTHDATE: 1960 ATTENDING: Leonardo Portillo Dr STATUS: outpatient TECHNICAL ASSISTANCE CONSULTANT: Lauren Hilario RN, Sylvia Vega RN, and Ame Pedro INDICATIONS: The patient is a 58 yr old Female here for a colonoscopy due to colon cancer screening PROCEDURE PERFORMED: Screening Colonoscopy MEDICATIONS: Per Anesthesia. ESTIMATED BLOOD LOSS: None CONSENT: The patient understands the risks and benefits of the procedure and understands that these risks include, but are not limited to: sedation, allergic reaction, infection, perforation and/or bleeding. Alternative means of evaluation and treatment include, among others: physical exam, x-rays, and/or surgical intervention. The patient elects to proceed with this endoscopic procedure. DESCRIPTION OF PROCEDURE: During intra-op preparation period all mechanical medical equipment was checked for proper function. Hand hygiene and appropriate measures for infection prevention was taken. Procedure, possible complications, alternatives including, but not limited to possibility of bleeding, perforation, tear, infection, sepsis, need for surgery, need for blood transfusion, were explained to the patient. After the risks, benefits and alternatives of the procedure were thoroughly explained, Informed consent was verified, confirmed and timeout was successfully executed by the treatment team. The patient was placed in the left lateral position. A digital rectal exam was performed and revealed external hemorrhoids. After appropriate level of anesthesia, the scope was passed. The EG-2990i ([id number]) and EC-3890Li ([id number]) endoscope was introduced through the anus and advanced to the terminal ileum which was intubated for a short distance. The quality of the prep was good. The instrument was then slowly withdrawn as the colon was fully examined. Scope withdrawal time was 7 minutes. COLON FINDINGS: Small internal and external hemorrhoids were found. Retroflexed views revealed small hemorrhoids. The scope was then completely withdrawn from the patient and the procedure terminated. ADVERSE EVENTS: There were no complications. IMPRESSIONS: 1. Small internal and external hemorrhoids 2. Intubation to terminal ileum RECOMMENDATIONS: 1. yearly hemoccult starting in 4 years 2. fiber rich diet RECALL: Return in 10 year(s) for Colonoscopy. Leonardo Portillo Dr eSigned: Leonardo Portillo Dr 08/08/2018 9:29 AM cc: Dee Dee Duran CPT CODES: ICD9 CODES: 455.5 External hemorrhoids with other complication PATIENT NAME: Ester Akins MR#: [id number]
[2018-08-08] MEDS ORDERED: ONDANSETRON 4 MG/2 ML VIAL ONE (10:11)
[2018-08-08 10:31] VITALS: BP 135/74; TEMP 97; O2SAT 97
== END 2018-08-08 10:54 | disposition home or self-care (01) ==
LOC: OR 06:59
PROVIDERS: ATTEND Internal Medicine Gastroenterology
PROC: 06L38CZ Occlusion of Esophageal Vein with Extraluminal Device, Via Natural or Artificial Opening Endoscopic (ICD-10-PCS; principal; 2018-08-08 08:45)
PROC: 0DJD8ZZ Inspection of Lower Intestinal Tract, Via Natural or Artificial Opening Endoscopic (ICD-10-PCS; 2018-08-08 08:45)
DX: I85.01 Esophageal varices with bleeding (principal); K29.70 Gastritis, unspecified, without bleeding; Z12.11 Encounter for screening for malignant neoplasm of colon; K21.9 Gastro-esophageal reflux disease without esophagitis; K64.8 Other hemorrhoids; K64.4 Residual hemorrhoidal skin tags; E11.9 Type 2 diabetes mellitus without complications; I10 Essential (primary) hypertension; Z80.3 Family history of malignant neoplasm of breast
CPT/HCPCS: 82962; J2405; J2704; J7030

== ENCOUNTER 2018-09-05 07:06 | Day surgery (SDC) | payer OTHER ==
--- OUTSIDE RECORDS SUMMARY | 2018-09-05 07:08 | XMS REPORT ---
:1960 Author Organization eClinicalWorks Care Team Providers Name Role Phone Ashly Duran Provider Role Unavailable Allergies No Known Allergies Problems Problem Type Condition Code Onset Dates Condition Status Problem Dysthymic disorder F34.1 Active Problem Tinea unguium B35.1 Active Problem Essential (primary) hypertension I10 Active Problem Type 2 diabetes mellitus without E11.9 Active complication, unspecified whether intermediate accountant insulin use Problem Other insomnia 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.09 Active substance or known physiological condition Problem Hematuria, microscopic R31.29 Active Medications No Known Medications Results No Known Results Summary Purpose eClinicalWorks Submission
--- OUTSIDE RECORDS SUMMARY | 2018-09-05 07:08 | XMS REPORT ---
[...] End Status Dosage System Date Date Trulicity [facility] 10183840796 1.5 MG/0.5ML Jul 12May 06, Active 1.5 mg Subcutaneous 2015 2017 once weekly FreeStyle Lite [facility] 53025015681 - In Vitro once October Active as directed Test daily 2017 Sertraline HCl ND 32633020204 50 MG Orally October Active take one Once a day 2016 tablet by mouth daily Metformin HCl ND 12058741912 1000 MG Orally Sep 11, Active 1 tablet Twice a day 2015 with meals Farxiga ND 29830530818 10 MG Active TAKE ONE TABLET BY MOUTH EVERY MORNING Cymbalta ND 39660226075 60 Orally Once a Active take one day capsule by mouth daily Zestoretic ND 69387035812 20-12.5 Active TAKE ONE TABLET BY MOUTH DAILY Results No Known Results Summary Purpose eClinicalWorks Submission
--- OUTSIDE RECORDS SUMMARY | 2018-09-05 07:08 | XMS REPORT ---
:1960 [facility] Address [address] [place] [address] Dr. Marino [address] [place] [address] Care Team Providers Name Role Phone Unavailable Unavailable Unavailable Problems This patient has no known problems. Allergies, Adverse Reactions, Alerts This patient has no known allergies or adverse reactions. Medications This patient has no known medications.
--- OUTSIDE RECORDS SUMMARY | 2018-09-05 07:09 | XMS REPORT ---
:1960 Author Organization eClinicalWorks Care Team Providers Name Role Phone [place]Miranda cárdenasy Provider Role Unavailable Allergies No Known Allergies Problems Problem Type Condition Code Onset Dates Condition Status Problem Tinea unguium B35.1 Active Problem Age-related nuclear cataract of both H25.13 Active eyes Problem Hematuria, microscopic R31.29 Active Problem Memory changes R41.3 Active Problem Essential (primary) hypertension I10 Active Problem Dysthymic disorder F34.1 Active Problem Type 2 diabetes mellitus without E11.9 Active complication, unspecified whether skilled nursing insulin use Problem Other insomnia 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.09 Active substance or known physiological condition Medications No Known Medications Results No Known Results Summary Purpose eClinicalWorks Submission
--- OUTSIDE RECORDS SUMMARY | 2018-09-05 07:09 | XMS REPORT ---
:1960 Author Organization eClinicalWorks Care Team Providers Name Role Phone [place] cár[place] Provider Role Unavailable Allergies No Known [...] without E11.9 Active complication, unspecified whether termite exterminator helper insulin use Problem Other insomnia 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.09 Active substance or known physiological condition Medications No Known Medications Results No Known Results Summary Purpose eClinicalWorks Submission
--- OUTSIDE RECORDS SUMMARY | 2018-09-05 07:09 | XMS REPORT ---
:1960 Author Organization eClinicalWorks Care Team Providers Name Role Phone Miranda Durany Provider Role Unavailable Allergies, Adverse Reactions, Alerts Substance Reaction Event Type Levemir Nausea, abd bloating Drug Allergy Problems Problem Type Condition Code Onset Dates Condition Status Problem Tinea unguium B35.1 Active Problem Type 2 diabetes mellitus without E11.9 Active complication, unspecified whether long term care social worker insulin use Problem Dysthymic disorder F34.1 Active [...] complication, unspecified whether skilled nursing insulin use Assessment Dysthymic disorder F34.1 Active Problem Essential (primary) hypertension I10 Active Medications Medication Code Code Instructions Start End Status Dosage System Date Date [facility] 58508566549 - In Vitro once October Active as directed Test daily 2017 Protonix [facility] 85143759151 40 MG Orally Active 1 tablet Once a day Farxiga [facility] 16031643823 10 Active TAKE ONE TABLET BY MOUTH EVERY MORNING Metformin HCl [facility] 30128242584 1000 MG Orally Sep 11, Active 1 tablet Twice a day 2015 with meals Zestoretic [facility] 57113621393 20-12.5 Active TAKE ONE TABLET BY MOUTH DAILY Duloxetine HCl ND 83464201847 60 MG Orally Active 1 capsule Once a day Cymbalta ND 68785612469 60 Orally Once Active take one a day capsule by mouth daily Trulicity [facility] 15022036472 1.5mg/0.5ml SQ Active 1 injection once a week Sertraline HCl [facility] 18599961244 50 MG Orally October Active take one Once a day 2016 tablet by mouth daily Results No Known Results Summary Purpose eClinicalWorks Submission
[2018-09-05] MEDS ORDERED: NA CHLORIDE 0.9% 1,000 ML ONE (07:54)
[2018-09-05] MEDS ORDERED: LIDOCAINE 1% MPF 5 ML VIAL ONE (09:50)
[2018-09-05] MEDS ORDERED: PROPOFOL 200 MG/20 ML VIAL IV ONE (09:50)
--- NOTE | 2018-09-05 11:17 | ENDO RPT ---
[address], [address] EGD PROCEDURE REPORT EXAM DATE: 09/05/2018 PATIENT NAME: Ester Akins MR#: [id number] BIRTHDATE: 1960 ATTENDING: Leonardo Portillo Dr STATUS: outpatient ADMINISTRATIVE SECRETARY: Bryanna Trejo RN and Nitza Maldonado RN INDICATIONS: The patient is a 58 yr old Female here for an EGD due to surveillance PROCEDURE PERFORMED: EGD, diagnostic MEDICATIONS: Per Anesthesia. TOPICAL ANESTHETIC: none CONSENT: The patient understands the risks and benefits of the procedure and understands that these risks include, but are not limited to: sedation, allergic reaction, infection, perforation and/or bleeding. Alternative means of evaluation and treatment include, among others: physical exam, x-rays, and/or surgical intervention. The patient elects to proceed with this endoscopic procedure. DESCRIPTION OF PROCEDURE: During intra-op preparation period all mechanical medical equipment was checked for proper function. Hand hygiene and appropriate measures for infection prevention was taken. Procedure, possible complications, and alternatives including but not limited to the possibility of bleeding, perforation, tear, infection, sepsis, need for surgery, need for blood transfusion, and anesthesia related complications were explained to the patient. After the risks, benefits and alternatives of the procedure were thoroughly explained, Informed consent was verified, confirmed and timeout was successfully executed by the treatment team. The patient was placed in the left lateral position. The patient was anesthetized with topical anesthesia. Through the anesthetized oropharyngeal area, the scope was passed without any difficulty. The EC-3890Li ([id number]) and Pentax EG-2990i ([id number]) endoscope was introduced through the mouth and advanced to the second portion of the duodenum. Retroflexed views revealed no abnormalities. The gastroscope was then slowly withdrawn and removed. Two columns of grade I varices were found in the lower esophagus. Mild gastritis was found in the body and the antrum of the stomach. ADVERSE EVENTS: There were no complications. IMPRESSIONS: 1. Two columns of grade I varices in the lower esophagus (no banding) 2. Mild bile induced gastritis in the body and the antrum of the stomach (prior biopsies 07-04-18) RECOMMENDATIONS: acid suppression therapy REPEAT EXAM: Return in 3-6 month(s) for EGD. Leonardo Portillo Dr eSigned: Leonardo Portillo Dr 09/05/2018 10:11 AM cc: Dee Dee Duran CPT CODES: ICD9 CODES: PATIENT NAME: Ester Akins MR#: [id number]
[2018-09-05 12:26] VITALS: BP 110/70; TEMP 97.3; O2SAT 98
== END 2018-09-05 11:00 | disposition home or self-care (01) ==
LOC: OR 07:06
PROVIDERS: ATTEND Internal Medicine Gastroenterology
PROC: 0DJ08ZZ Inspection of Upper Intestinal Tract, Via Natural or Artificial Opening Endoscopic (ICD-10-PCS; principal; 2018-09-05 09:45)
DX: I85.10 Secondary esophageal varices without bleeding (principal); K76.6 Portal hypertension; K31.89 Other diseases of stomach and duodenum; K29.60 Other gastritis without bleeding; K74.60 Unspecified cirrhosis of liver; E11.9 Type 2 diabetes mellitus without complications; I10 Essential (primary) hypertension; F41.9 Anxiety disorder, unspecified; F32.9 Major depressive disorder, single episode, unspecified; D69.6 Thrombocytopenia, unspecified; K76.0 Fatty (change of) liver, not elsewhere classified; Z79.84 Long term (current) use of oral hypoglycemic drugs; Z79.899 Other long term (current) drug therapy; E66.9 Obesity, unspecified
CPT/HCPCS: 82962; J2704; J7030

== ENCOUNTER 2019-04-10 07:18 | Day surgery (SDC) | payer OTHER ==
--- OUTSIDE RECORDS SUMMARY | 2019-04-10 07:20 | XMS REPORT ---
:1960 Author Organization eClinicalWorks Care Team Providers Name Role Phone Frances Duran Provider Role Unavailable Allergies No Known Allergies Problems Problem Type Condition Code Onset Dates Condition Status Problem Other insomnia 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.09 Active substance or known physiological condition Problem Age-related nuclear cataract of H25.13 Active both eyes Problem Memory changes R41.3 Active Problem Essential (primary) hypertension I10 Active Problem Tinea unguium B35.1 Active Problem Hematuria, microscopic R31.29 Active Problem Type 2 diabetes mellitus without E11.9 Active complication, unspecified whether termite helper insulin use Problem Urinary tract infection without N39.0 Active hematuria, site unspecified Problem 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
--- OUTSIDE RECORDS SUMMARY | 2019-04-10 07:20 | XMS REPORT ---
:1960 [facility] Address [address] [place] [address] Dr. Marino [address] [place] [address] Care Team Providers Name Role Phone Unavailable Unavailable Unavailable Problems This patient has no known problems. Allergies, Adverse Reactions, Alerts This patient has no known allergies or adverse reactions. Medications This patient has no known medications.
[2019-04-10] MEDS ORDERED: NA CHLORIDE 0.9% 1,000 ML ONE (07:32)
[2019-04-10] MEDS ORDERED: LIDOCAINE 1% MPF 5 ML VIAL ONE (09:01)
[2019-04-10] MEDS ORDERED: PROPOFOL 200 MG/20 ML VIAL IV ONE (09:01)
[2019-04-10] MEDS ORDERED: EPINEPHRINE/PF 1 MG/ML AMP ONE (09:06)
--- NOTE | 2019-04-10 09:24 | ENDO RPT ---
[address], [address] EGD PROCEDURE REPORT EXAM DATE: 04/10/2019 PATIENT NAME: Ester Akins MR#: [id number] BIRTHDATE: 1960 ATTENDING: Leonardo Portillo Dr STATUS: outpatient FIRE FIGHTING EQUIPMENT SPECIALIST: Venu Herr RN, Ame Pedro, and Alba Castro RN INDICATIONS: The patient is a 59 yr old Female here for an EGD due to follow-up for esophageal varices surveillance PROCEDURE PERFORMED: EGD MEDICATIONS: Per Anesthesia. TOPICAL ANESTHETIC: none CONSENT: The patient understands the risks and benefits of the procedure and understands that these risks include, but are not limited to: sedation, allergic reaction, infection, perforation and/or bleeding. Alternative means of evaluation and treatment include, among others: physical exam, x-rays, and/or surgical intervention. The patient elects to proceed with this endoscopic procedure. DESCRIPTION OF PROCEDURE: During intra-op preparation period all mechanical medical equipment was checked for proper function. Hand hygiene and appropriate measures for infection prevention was taken. Procedure, possible complications, and alternatives including but not limited to the possibility of bleeding, perforation, tear, infection, sepsis, need for surgery, need for blood transfusion, and anesthesia related complications were explained to the patient. After the risks, benefits and alternatives of the procedure were thoroughly explained, Informed consent was verified, confirmed and timeout was successfully executed by the treatment team. The patient was placed in the left lateral position. The patient was anesthetized with topical anesthesia. Through the anesthetized oropharyngeal area, the scope was passed without any difficulty. The Pentax EG-2990i ([id number]) endoscope was introduced through the mouth and advanced to the stomach antrum. Retroflexion was not performed. The gastroscope was then slowly withdrawn and removed. Three columns of grade I to II varices were found in the lower esophagus. Large amount of solid retained food was present in the body of the stomach. ADVERSE EVENTS: There were no complications. IMPRESSIONS: 1. Three columns of grade I to II varices in the lower esophagus (improved, though limited assessment due to retained food in stomach) 2. Large amount of solid retained food in the body/fundus of the stomach; therefore procedure terminated due to increased risk of aspiration RECOMMENDATIONS: gastric emptying study REPEAT EXAM: Return in 1 month(s) for EGD. Leonardo Portillo Dr eSigned: Leonardo Portillo Dr 04/10/2019 9:23 AM cc: Dee Dee Duran CPT CODES: ICD9 CODES: PATIENT NAME: Ester Akins MR#: [id number]
[2019-04-10 09:57] VITALS: BP 101/60
[2019-04-10 09:58] VITALS: TEMP 98.4; O2SAT 94
== END 2019-04-10 09:50 | disposition home or self-care (01) ==
LOC: OR 07:18
PROVIDERS: ATTEND Internal Medicine Gastroenterology
PROC: 0DJ08ZZ Inspection of Upper Intestinal Tract, Via Natural or Artificial Opening Endoscopic (ICD-10-PCS; principal; 2019-04-10 10:45)
DX: K74.60 Unspecified cirrhosis of liver (principal); I85.10 Secondary esophageal varices without bleeding; E11.9 Type 2 diabetes mellitus without complications; K31.89 Other diseases of stomach and duodenum; K76.6 Portal hypertension; I10 Essential (primary) hypertension; F41.9 Anxiety disorder, unspecified; F32.9 Major depressive disorder, single episode, unspecified; Z80.3 Family history of malignant neoplasm of breast
CPT/HCPCS: 82962; 43235; J2704; J0171; J7030

== ENCOUNTER 2023-06-16 05:22 | Emergency (ER) | payer OTHER ==
--- OUTSIDE RECORDS SUMMARY | 2023-06-16 05:27 | XMS REPORT | Continuity of Care Document ---
:1960 Author Organization [facility] t Address [address] [facility] [address] [place] [address] Care Team Providers Name Role Phone ROHITH CHACON Primary Care Physician Unavailable Frances Duran Attending Clinician Unavailable Radiology Attending Clinician Unavailable RADIOLOGY Attending Clinician Unavailable Doctor Unassigned, [place] Attending Clinician Unavailable GUERRERO EAST Admitting Clinician Unavailable ROHITH CHACON Admitting Clinician Unavailable Payers Payer Name Policy Type Policy Number Effective Date Expiration Date Joss SIMEON 53 [id number] 2015 [facility] - 00:00:00 [facility] Problems Condition Condition Condition Status Onset Resolution Last Treating Co mments Source Name Details Category Date Date Treatment Clinician Date No known No known Disease Unive rs active active ity of problems problems [facility] [id number] Essential Problem Active Comm on (primary) Spirit hypertensi - [facility] on [facility] [id number] Memory Problem Active Common changes Spirit - [facility] [id number] 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 [facility] [id number] Current Problem Active Common mild Spirit episode of - CHI major [facility] Medical [facility] Center prior episode Allergies, Adverse Reactions, Alerts Allergy Allergy Status Severity Reaction(s) Onset Inactive Treating Comm ents Source Name Type Date Date Clinician insulin insulin Active Nausea, abd Com mon detemir detemir bloating Spirit - [facility] NO KNOWN Drug Active Univers ALLERGIE Class ity of [facility] Social History Social Habit Start Date Stop Date Quantity Comments Source History of [facility] - Tobacco Use [facility] Sex Assigned At [facility] - [facility] Alcohol intake 2022-07-13 2022-07-13 Current University 00:00:00 00:00:00 non-drinker of [facility] alcohol (finding) Branch Exposure to 2022-05-30 2022-06-09 Not sure [facility] SARS-CoV-2 00:00:00 11:52:00 [facility] (event) Branch Tobacco use and 2018-08-15 2018-08-15 Smokeless tobacco Un iversity of exposure 00:00:00 00:00:00 non-user [facility] Smoking Status Start Date Stop Date Source Former Smoker 2021-04-20 00:00:00 2021-04-20 00:00:00 [facility] S pirit - [facility] Ce nter Never smoked tobacco [facility] Medications Ordered Filled Start Stop Current Ordering Indication Dosage Frequency Signature Comments Components Source Medication Medication Date Date Medication? Clinician (SIG) Name Name barium 2020-07- No [id number] 680g 680 g, Uni vers sulfate 09-01 Oral, ity of (LIQUID E-Z 15:00: 15:15 ONCE, 1 Carlos IRWIN) 60 % 00 :00 dose, On Medi betina (w/v) oral Wed Branch suspension 07/01/21 at 680 g 0900, Routine Hyoscyamine Hyoscyamine No 1{table 6xD Hyoscyamin Sulfate Sulfate 04-21 t_as_ne e Sulfate 0.125 MG 0.125 MG 00:00: eded} 0.125 MG 00 Hyoscyamine Hyoscyamine No 1{table 6xD Hyoscyamin Sulfate Sulfate 04-21 t_as_ne e Sulfate 0.125 MG 0.125 MG 00:00: eded} 0.125 MG 00 Hyoscyamine Hyoscyamine No 1{table 6xD Hyoscyamin Sulfate Sulfate 04-21 t_as_ne e Sulfate 0.125 MG 0.125 MG 00:00: eded} 0.125 MG 00 Hyoscyamine Hyoscyamine No 1{table 6xD Hyoscyamin Sulfate Sulfate 04-21 t_as_ne e Sulfate 0.125 MG 0.125 MG 00:00: eded} 0.125 MG 00 Methscopola Methscopola 2020- No 1{table QID Methscopol mine mine 04-21 t_30_mi amine [place] 5 [place] 5 00:00: 00:00 nutes_b [place] 5 MG MG 00 :00 efore_m MG eals_an d_at_be dtime} Lancets 30G Lancets 30G No QD Lancets - - 6-29 30G - 00:00: 00 Lancets 30G Lancets 30G 0 No QD Lancets - - 6-29 30G - 00:00: 00 Lancets 30G Lancets 30G 0 No QD Lancets - - 6-29 30G - 00:00: 00 Lancets 30G Lancets 30G 0 No QD Lancets - - 6-29 30G - 00:00: 00 Lancets 30G Lancets 30G 0 No QD Lancets - - 6-29 30G - 00:00: 00 Lancets 30G Lancets 30G 0 No QD Lancets - - 6-29 30G - 00:00: 00 Sulfamethox Sulfamethox 202- No 1{table BID Sulfametho azole-Trime azole-Trime 2-24 03-06 t} xazole-Tri thoprim thoprim 00:00: 00:00 methoprim 800-160 MG 800-160 MG 00 :00 800-160 MG Amoxicillin Amoxicillin 0 1- No 1{table BID Amoxicilli -Pot -Pot 09-17 t} n-Pot Clavulanate Clavulanate 00:00: 00:00 Clavulanat 875-125 MG 875-125 MG 00 :00 e 875-125 MG Pen Butternut Pen Butternut 2020-0 No Pen 31G X 6 MM 31G X 6 MM -21 Butternut 00:00: 31G X 6 MM 00 Pen Butternut Pen Butternut 2020-0 No Pen 31G X 6 MM 31G X 6 MM -21 Butternut 00:00: 31G X 6 MM 00 Pen Butternut Pen Butternut 2020-0 No Pen 31G X 6 MM 31G X 6 MM -21 Butternut 00:00: 31G X 6 MM 00 Pen Butternut Pen Butternut 2020-0 No Pen 31G X 6 MM 31G X 6 MM -21 Butternut 00:00: 31G X 6 MM 00 Pen Butternut Pen Butternut 2020-0 No Pen 31G X 6 MM 31G X 6 MM -21 Butternut 00:00: 31G X 6 MM 00 Pen Butternut Pen Butternut 2020-0 No Pen 31G X 6 MM 31G X 6 MM -21 Butternut 00:00: 31G X 6 MM 00 Pen Butternut Pen Butternut 2020-0 No Pen 31G X 6 MM 31G X 6 MM -21 Butternut 00:00: 31G X 6 MM 00 Pen Butternut Pen Butternut 2020-0 No Pen 31G X 6 MM 31G X 6 MM -21 [place]ternut 00:00: 31G X 6 MM 00 BD BD 2019-07- No QD BD Ultra-Fine Ultra-Fine 2-18 12-13 Ultra-Fine Sully Pen Sully Pen 00:00: 00:00 Sully Pen Butternut 4mm Butternut 4mm 00 :00 Butternut x 32g x 32g 4mm x 32g BD BD 2019-07- No QD BD Ultra-Fine Ultra-Fine 2-18 12-13 Ultra-Fine Sully Pen Sully Pen 00:00: 00:00 Sully Pen [place]tern[place] 4mm Butternut 4mm 00 :00 [place]ternut x 32g x 32g 4mm x 32g BD BD 2019-07- No QD BD Ultra-Fine Ultra-Fine 2-18 12-13 Ultra-Fine Sully Pen Sully Pen 00:00: 00:00 Sully Pen [place] 4mm Butternut 4mm 00 :00 Butternut x 32g x 32g 4mm x 32g BD BD 2019-07- No QD BD Ultra-Fine Ultra-Fine 2-18 12-13 Ultra-Fine Sully Pen Sully Pen 00:00: 00:00 Sully Pen [place] 4mm Butternut 4mm 00 :00 Butternut x 32g x 32g 4mm x 32g BD BD 2019-07- No QD BD Ultra-Fine Ultra-Fine 2-18 12-13 Ultra-Fine Sully Pen Sully Pen 00:00: 00:00 Sully Pen [place] 4mm Butternut 4mm 00 :00 Butternut x 32g x 32g 4mm x 32g BD BD 2019-07- No QD BD Ultra-Fine Ultra-Fine 2-18 12-13 Ultra-Fine Sully Pen Sully Pen 00:00: 00:00 Sully Pen [place] 4mm Butternut 4mm 00 :00 Butternut x 32g x 32g 4mm x 32g Tresiba Tresiba Yes Frances 20 units Co mmon FlexTouch FlexTouch 3-04 [facility] inc by 2 Spirit 00:00: units - [facility] [address] days max [facility] dose 60 Medical units a day pantoprazol Yes 40mg Take 40 mg Univers e 40 mg EC 1-23 by mouth ity o f tablet 11:16: daily. [address] SERTraline Yes 25mg Take 25 mg U nivers 25 mg 1-23 by mouth ity of tablet 11:16: daily. [address] SERTraline Yes 25mg Take 25 mg U nivers 25 mg 1-23 by mouth ity of tablet 11:16: daily. [address] dulaglutide Yes 1.5mg inject 1.5 Univers (TRULICITY) 1-23 mg under ity of 1.5 mg/0.5 11:16: the skin Denny as mL PnIj 55 weekly. [facility] Branch dulaglutide Yes 1.5mg inject 1.5 Univers (TRULICITY) 1-23 mg under ity of 1.5 mg/0.5 11:16: the skin Denny as mL PnIj 55 weekly. Medical Branch metFORMIN Yes 1000mg Take 1,000 Univers 1,000 mg 1-23 mg by ity of tablet 11:16: mouth [address] [place] [address] (two) Medical times Branch daily with meals. lisinopril Yes 20mg Take 20 mg U nivers 20 mg 1-23 by mouth ity of tablet 11:16: at [place] [address] bedtime. Medical Branch dapaglifloz Yes 10mg Take 10 mg Univers in -23 by mouth ity of (FARXIGA) 11:16: daily. [place] 10 mg Medical tablet Branch pantoprazol Yes 40mg Take 40 mg Univers e 40 mg EC -23 by mouth ity o f tablet 11:16: daily. [place] [address] Medical Branch SERTraline Yes 25mg Take 25 mg U nivers 25 mg -23 by mouth ity of tablet 11:16: daily. [place] [address] Medical Branch dulaglutide Yes 1.5mg inject 1.5 Univers (TRULICITY) 1-23 mg under ity of 1.5 mg/0.5 11:16: the skin Denny as mL PnIj 55 weekly. Medical Branch metFORMIN Yes 1000mg Take 1,000 Univers 1,000 mg 1-23 mg by ity of tablet 11:16: mouth 2 [place] [address] (two) Medical times Branch daily with meals. lisinopril Yes 20mg Take 20 mg U nivers 20 mg 23 by mouth ity of tablet 11:16: at [place] [address] bedtime. Medical Branch dapaglifloz Yes 10mg Take 10 mg Univers in -23 by mouth ity of (FARXIGA) 11:16: daily. [place] 10 mg Medical tablet Branch pantoprazol Yes 40mg Take 40 mg Univers e 40 mg EC -23 by mouth ity o f tablet 11:16: daily. [place] [address] Medical Branch SERTraline Yes 25mg Take 25 mg U nivers 25 mg 1-23 by mouth ity of tablet 11:16: daily. [place] [address] Medical Branch dulaglutide 0 Yes 1.5mg inject 1.5 Univers (TRULICITY) 1-23 mg under ity of 1.5 mg/0.5 11:16: the skin Denny as mL PnIj 55 weekly. Medical Branch metFORMIN Yes 1000mg Take 1,000 Univers 1,000 mg 1-23 mg by ity of tablet 11:16: mouth 2 [place] [address] (two) Medical times Branch daily with meals. lisinopril 2019-0 Yes 20mg Take 20 mg U nivers 20 mg 1-23 by mouth ity of tablet 11:16: at [place] [address] bedtime. Medical Branch dapaglifloz 0 Yes 10mg Take 10 mg Univers in 1-23 by mouth ity of (FARXIGA) 11:16: daily. [place] 10 mg Medical tablet Branch pantoprazol 2019-0 Yes 40mg Take 40 mg Univers e 40 mg EC 1-23 by mouth ity o f tablet 11:16: daily. [place] [address] Medical Branch SERTraline 2018-0 Yes 25mg Take 25 mg U nivers 25 mg 1-23 by mouth ity of tablet 11:16: daily. [place] [address] Medical Branch dulaglutide 0 Yes 1.5mg inject 1.5 Univers (TRULICITY) 1-23 mg under ity of 1.5 mg/0.5 11:16: the skin Denny as mL PnIj 55 weekly. Medical Branch metFORMIN 0 Yes 1000mg Take 1,000 Univers 1,000 mg 1-23 mg by ity of tablet 11:16: mouth 2 [place] [address] (two) Medical times Branch daily with meals. metFORMIN 0 Yes 1000mg Take 1,000 Univers 1,000 mg 1-23 mg by ity of tablet 11:16: mouth 2 [place] [address] (two) Medical times [place] daily with meals. lisinopril 2019-0 Yes 20mg Take 20 mg U nivers 20 mg 1-23 by mouth ity of tablet 11:16: at [place] [address] bedtime. Medical Branch dapaglifloz 2019-0 Yes 10mg Take 10 mg Univers in 1-23 by mouth ity of (FARXIGA) 11:16: daily. [place] 10 mg Medical tablet Branch pantoprazol 2018-0 Yes 40mg Take 40 mg Univers e 40 mg EC 1-23 by mouth ity o f tablet 11:16: daily. [place] [address] Medical Branch SERTraline 2018-0 Yes 25mg Take 25 mg U nivers 25 mg 1-23 by mouth ity of tablet 11:16: daily. [place] [address] Medical Branch dulaglutide 2018-0 Yes 1.5mg inject 1.5 Univers (TRULICITY) 1-23 mg under ity of 1.5 mg/0.5 11:16: the skin Denny as mL PnIj 55 weekly. Medical Branch lisinopril 2019-0 Yes 20mg Take 20 mg U nivers 20 mg 1-23 by mouth ity of tablet 11:16: at [place] [address] bedtime. Medical Branch metFORMIN 2019-0 Yes 1000mg Take 1,000 Univers 1,000 mg 1-23 mg by ity of tablet 11:16: mouth 2 [place] [address] (two) Medical times Branch daily with meals. lisinopril 2019-0 Yes 20mg Take 20 mg U nivers 20 mg 1-23 by mouth ity of tablet 11:16: at [place] [address] bedtime. Medical Branch dapaglifloz 0 Yes 10mg Take 10 mg Univers in 1-23 by mouth ity of (FARXIGA) 11:16: daily. [place] 10 mg 55 Medical tablet Branch pantoprazol 0 Yes 40mg Take 40 mg Univers e 40 mg EC 123 by mouth ity o f tablet 11:16: daily. [place] [address] Medical Branch SERTraline 2018-0 Yes 25mg Take 25 mg U nivers 25 mg 1-23 by mouth ity of tablet 11:16: daily. [place] [address] Medical Branch dulaglutide 2018-0 Yes 1.5mg inject 1.5 Univers (TRULICITY) 1-23 mg under ity of 1.5 mg/0.5 11:16: the skin [place]enny as mL PnIj 55 weekly. Medical Branch dapaglifloz 2018-0 Yes 10mg Take 10 mg Univers in -23 by mouth ity of (FARXIGA) 11:16: daily. [place] 10 mg 55 Medical tablet Branch metFORMIN 2019-0 Yes 1000mg Take 1,000 Univers 1,000 mg 1-23 mg by ity of tablet 11:16: mouth 2 [place] [address] (two) Medical times [place] daily with meals. lisinopril 2019-0 Yes 20mg Take 20 mg U nivers 20 mg 1-23 by mouth ity of tablet 11:16: at [place] [address] bedtime. Medical Branch dapaglifloz 0 Yes 10mg Take 10 mg Univers in 1-23 by mouth ity of (FARXIGA) 11:16: daily. [place] 10 mg 55 Medical tablet Branch pantoprazol 2018-0 Yes 40mg Take 40 mg Univers e 40 mg EC 1-23 by mouth ity o f tablet 11:16: daily. [place] [address] Medical Branch SERTraline 0 Yes 25mg Take 25 mg U nivers 25 mg 1-23 by mouth ity of tablet 11:16: daily. [place] [address] Medical Branch dulaglutide Yes 1.5mg inject 1.5 Univers (TRULICITY) 1-23 mg under ity of 1.5 mg/0.5 11:16: the skin [place]enny as mL PnIj 55 weekly. Medical Branch pantoprazol Yes 40mg Take 40 mg Univers e 40 mg EC 1-23 by mouth ity o f tablet 11:16: daily. [place] [address] Medical Branch metFORMIN 0 Yes 1000mg Take 1,000 Univers 1,000 mg 1-23 mg by ity of tablet 11:16: mouth 2 [place] [address] (two) Medical times Branch daily with meals. lisinopril Yes 20mg Take 20 mg U nivers 20 mg -23 by mouth ity of tablet 11:16: at [place] [address] bedtime. Medical Branch dapaglifloz Yes 10mg Take 10 mg Univers in -23 by mouth ity of (FARXIGA) 11:16: daily. [place] 10 55 Medical tablet Branch FreeStyle FreeStyle 0 Yes Frances as Co mmon Lite Test Lite Test 11-07 Crumpler directed Spirit 00:00: - CHI 00 [facility] FreeStyle FreeStyle 2017-0 No FreeStyle Lite Test - Lite Test - 16 Lite Test 00:00: - 00 FreeStyle FreeStyle 2017-0 No FreeStyle Lite Test - Lite Test - 16 Lite Test 00:00: - 00 FreeStyle FreeStyle 2017-0 No FreeStyle Lite Test - Lite Test - 16 Lite Test 00:00: - 00 FreeStyle FreeStyle 2017-0 No FreeStyle Lite Test - Lite Test - 16 Lite Test 00:00: - 00 FreeStyle FreeStyle 2017-0 No FreeStyle Lite Test - Lite Test - 16 Lite Test 00:00: - 00 FreeStyle FreeStyle 2017-0 No FreeStyle Lite Test - Lite Test - 4-16 Lite Test 00:00: - 00 FreeStyle FreeStyle 2017-0 No QD FreeStyle Lite Test - Lite Test - 4-16 Lite Test 00:00: - 00 FreeStyle FreeStyle 2017-0 No QD FreeStyle Lite Test - Lite Test - 416 Lite Test 00:00: - 00 Zestoretic Zestoretic Yes Frances 1 tablet Common [facility] Protonix Protonix Yes Frances 1 tablet Co mmon [facility] Trulicity Trulicity Yes Frances as Comm on Crumpler directed [facility] Metformin Metformin Yes Frances TAKE ONE Common HCl HCl [facility]rumpler TABLET BY Spirit MOUTH - CHI TWICE A [facility] Januvia Januvia Yes Frances TAKE ONE Comm on [facility]rumpler TABLET BY Spirit MOUTH - CHI DAILY [facility] Sertraline Sertraline Yes Frances 1 tablet Common HCl HCl Crumpler [facility] metFORMIN metFORMIN No metFORMIN HCl 1000 MG HCl 1000 MG HCl 1000 MG Sertraline Sertraline No 1{table QD Sertraline HCl 100 MG HCl 100 MG t} HCl 100 MG Zestoretic Zestoretic No Zestoretic 20-12.5 MG 20-12.5 MG 20-12.5 MG Januvia 50 Januvia 50 No Januvia 50 MG MG MG Sertraline Sertraline No Sertraline HCl 100 MG HCl 100 MG HCl 100 MG Trulicity 3 Trulicity 3 No Trulicity MG/0.5ML MG/0.5ML 3 MG/0.5ML Zestoretic Zestoretic No Zestoretic 20-12.5 MG 20-12.5 MG 20-12.5 MG metFORMIN metFORMIN No metFORMIN HCl 1000 MG HCl 1000 MG HCl 1000 MG Tresiba Tresiba No QD Tresiba FlexTouch FlexTouch FlexTouch 200 unit/mL 200 unit/mL 200 unit/mL metFORMIN metFORMIN No metFORMIN HCl 1000 MG HCl 1000 MG HCl 1000 MG Januvia 50 Januvia 50 No Januvia 50 MG MG MG Trulicity 3 Trulicity 3 No Trulicity MG/0.5ML MG/0.5ML 3 MG/0.5ML Zestoretic Zestoretic No Zestoretic 20-12.5 MG 20-12.5 MG 20-12.5 MG Sertraline Sertraline No Sertraline HCl 100 MG HCl 100 MG HCl 100 MG Tresiba Tresiba No QD Tresiba FlexTouch FlexTouch FlexTouch 200 unit/mL 200 unit/mL 200 unit/mL Trulicity 3 Trulicity 3 No Trulicity MG/0.5ML MG/0.5ML 3 MG/0.5ML metFORMIN metFORMIN No metFORMIN HCl 1000 MG HCl 1000 MG HCl 1000 MG Lisinopril- Lisinopril- No Lisinopril hydroCHLORO hydroCHLORO -hydroCHLO thiazide thiazide ROthiazide 20-12.5 MG 20-12.5 MG 20-12.5 MG Sertraline Sertraline No Sertraline HCl 100 MG HCl 100 MG HCl 100 MG Tresiba Tresiba No QD Tresiba FlexTouch FlexTouch FlexTouch 200 unit/mL 200 unit/mL 200 unit/mL Januvia 50 Januvia 50 No Januvia 50 MG MG MG Trulicity 3 Trulicity 3 No Trulicity MG/0.5ML MG/0.5ML 3 MG/0.5ML Lisinopril- Lisinopril- No Lisinopril hydroCHLORO hydroCHLORO -hydroCHLO thiazide thiazide ROthiazide 20-12.5 MG 20-12.5 MG 20-12.5 MG metFORMIN metFORMIN No metFORMIN HCl 1000 MG HCl 1000 MG HCl 1000 MG Sertraline Sertraline No Sertraline HCl 100 MG HCl 100 MG HCl 100 MG Tresiba Tresiba No QD Tresiba FlexTouch FlexTouch FlexTouch 200 unit/mL 200 unit/mL 200 unit/mL Januvia 50 Januvia 50 No Januvia 50 MG MG MG Trulicity 3 Trulicity 3 No Trulicity MG/0.5ML MG/0.5ML 3 MG/0.5ML Lisinopril- Lisinopril- No Lisinopril hydroCHLORO hydroCHLORO -hydroCHLO thiazide thiazide ROthiazide 20-12.5 MG 20-12.5 MG 20-12.5 MG metFORMIN metFORMIN No metFORMIN HCl 1000 MG HCl 1000 MG HCl 1000 MG Sertraline Sertraline No Sertraline HCl 100 MG HCl 100 MG HCl 100 MG Tresiba Tresiba No QD Tresiba FlexTouch FlexTouch FlexTouch 200 unit/mL 200 unit/mL 200 unit/mL Januvia 50 Januvia 50 No Januvia 50 MG MG MG Metformin Metformin No Metformin HCl 1000 MG HCl 1000 MG HCl 1000 MG Protonix 40 Protonix 40 No 1{table QD Protonix MG MG t} 40 MG Metformin Metformin No Metformin HCl 1000 MG HCl 1000 MG HCl 1000 MG Sertraline Sertraline No 1{table QD Sertraline HCl 100 MG HCl 100 MG t} HCl 100 MG Trulicity Trulicity No Trulicity 1.5 1.5 1.5 MG/0.5ML MG/0.5ML MG/0.5ML Zestoretic Zestoretic No Zestoretic 20-12.5 MG 20-12.5 MG 20-12.5 MG Januvia 50 Januvia 50 No Januvia 50 MG MG MG Tresiba Tresiba No QD Tresiba FlexTouch FlexTouch FlexTouch 200 UNIT/ML 200 UNIT/ML 200 UNIT/ML Trulicity Trulicity No Trulicity 1.5 1.5 1.5 MG/0.5ML MG/0.5ML MG/0.5ML Metformin Metformin No Metformin HCl 1000 MG HCl 1000 MG HCl 1000 MG Januvia 50 Januvia 50 No Januvia 50 MG MG MG Metformin Metformin No Metformin HCl 1000 MG HCl 1000 MG HCl 1000 MG Zestoretic Zestoretic No Zestoretic 20-12.5 MG 20-12.5 MG 20-12.5 MG Tresiba Tresiba No QD Tresiba FlexTouch FlexTouch FlexTouch 200 UNIT/ML 200 UNIT/ML 200 UNIT/ML Sertraline Sertraline No 1{table QD Sertraline HCl 100 MG HCl 100 MG t} HCl 100 MG Protonix 40 Protonix 40 No 1{table QD Protonix MG MG t} 40 MG Januvia 50 Januvia 50 No Januvia 50 MG MG MG Tresiba Tresiba No QD Tresiba FlexTouch FlexTouch FlexTouch 200 UNIT/ML 200 UNIT/ML 200 UNIT/ML Trulicity 3 Trulicity 3 2020- No Trulicity MG/0.5ML MG/0.5ML 09-27 3 MG/0.5ML 00:00 :00 Vital Signs Vital Name Observation Time Observation Value Comments Source height 2021-04-21 16:20:00 68 [in_i] Common [facility] weight 2021-04-21 16:20:00 200 [lb_av] [facility] temperature 2021-04-21 16:20:00 97.1 [degF] Common [facility] bmi 2021-04-21 16:20:00 30.41 kg/m2 [facility] oximetry 2021-04-21 16:20:00 96 % [facility] respiratory rate 2021-04-21 16:20:00 16 /min Comm on [facility] blood pressure 2021-04-21 16:20:00 111 mm[Hg] Common [facility] - systolic [facility] blood pressure 2021-04-21 16:20:00 61 mm[Hg] Common [facility] - diastolic [facility] height 2021-01-20 16:00:00 68 [in_i] [facility] weight 2021-01-20 16:00:00 216 [lb_av] [facility] temperature 2021-01-20 16:00:00 98.6 [degF] [facility] bmi 2021-01-20 16:00:00 32.84 kg/m2 [facility] oximetry 2021-01-20 16:00:00 96 % [facility] respiratory rate 2021-01-20 16:00:00 19 /min Comm on [facility] blood pressure 2021-01-20 16:00:00 116 mm[Hg] Common [facility] - systolic [facility] blood pressure 2021-01-20 16:00:00 63 mm[Hg] Common [facility] - diastolic [facility] height 2020-10-20 16:20:00 68 [in_i] Common [facility] weight 2020-10-20 16:20:00 216 [lb_av] Common [facility] temperature 2020-10-20 16:20:00 97.3 [degF] [facility] bmi 2020-10-20 16:20:00 32.84 kg/m2 Common [facility] oximetry 2020-10-20 16:20:00 94 % [facility] respiratory rate 2020-10-20 16:20:00 16 /min Comm on [facility] blood pressure 2020-10-20 16:20:00 116 mm[Hg] Common [facility] systolic [facility] blood pressure 2020-10-20 16:20:00 68 mm[Hg] [facility] diastolic [facility] height 2020-09-17 08:20:00 68 [in_i] [facility] weight 2020-09-17 08:20:00 212.6 [lb_av] [facility] temperature 2020-09-17 08:20:00 97.3 [degF] [facility] bmi 2020-09-17 08:20:00 32.32 kg/m2 [facility] oximetry 2020-09-17 08:20:00 95 % [facility] respiratory rate 2020-09-17 08:20:00 16 /min Comm on [facility] blood pressure 2020-09-17 08:20:00 118 mm[Hg] Common [facility] systolic [facility] blood pressure 2020-09-17 08:20:00 53 mm[Hg] Common [facility] diastolic [facility] Procedures Procedure Date / Time Performing Clinician Source Performed BI ULTRASOUND BREAST 2022-07-13 19:12:11 Requisition, Paper [facility] COMPLETE LEFT Medical Branch BI DIAGNOSTIC 2022-07-13 18:43:41 [facility] TOMOSYNTHESIS BILATERAL Medical Branch ASSIGNMENT OF BENEFITS 2022-07-13 17:55:19 Doctor Unassigned, No [facility] Branch US ABDOMEN COMPLETE 2022-06-16 14:40:56 Requisition, Paper Unive [facility] DEXA AXIAL (HIP AND 2022-05-21 13:25:00 Requisition, Paper Unive [facility] SPINE) Medical Branch ASSIGNMENT OF BENEFITS 2021-07-01 14:49:41 Doctor Unassigned, No [facility] Encounters Start End Encounter Admission Attending Care Care Encounter Source Date/Time Date/Time Type Type Clinicians Facility Department ID 2021-08-19 Outpatient Crumpler, STLMLC STLMLC [id number] Common 14:26:17 Frances [address] [facility] 2021-08-19 Outpatient Crumpler, STLMLC STLMLC [id number] Common 14:00:15 Frances [address] [facility] 2021-08-19 Outpatient Crumpler, STLMLC STLMLC [id number] Common 12:13:16 Frances [address] [facility] 2021-08-19 Outpatient Crumpler, STLMLC STLMLC [id number] Common 11:39:26 Frances [address]019 [facility] 2021-08-19 Outpatient Crumpler, STLMLC STLMLC [id number] Common 11:17:46 Frances [address] [facility] 2021-08-19 Outpatient Crumpler, STLMLC STLMLC [id number] Common 11:16:07 Frances [address] [facility] 2023-02-14 2023-02-14 Outpatient SFA SFA [id number] Philip 07:13:54 07:13:54 [id number] F Osman 2023-02-02 2023-02-02 Outpatient SFA SFA [place] 10:04:37 10:04:37 [id number] F Osman 2023-02-01 2023-02-01 Outpatient SFA SFA [id number] Philip 16:16:35 16:16:35 [id number] F Osman 2022-12-10 2022-12-10 Outpatient SFA SFA [id number] Philip 07:31:48 07:31:48 [id number] F [place] 2022-11-08 2022-11-08 Outpatient SFA [facility] [id number] Philip 07:41:59 07:41:59 [id number] F [place] 2022-07-13 2022-07-13 Hospital Radiology [facility] [id number] Univers 11:57:16 23:59:00 Encounter [place] [id number] ity [id number] [id number] [facility] [address] [place] 2022-07-13 2022-07-13 Outpatient R RADIOLOGY [facility] [id number] Univers 11:57:16 23:59:00 ity of [facility] 2022-07-13 2022-07-13 [facility] Radiology [facility] 1.2.840.114 [id number] Univers 11:56:47 11:56:47 Encounter [place] [id number] [id number] [id number] [facility] [address] 2022-07-13 2022-07-13 Orders Doctor RADHA 1.2.840.114 [id number] Univers 00:00:00 00:00:00 Only Unassigned, GERTRUDE [id number] ity of [place] [facility] 4.2.7.2.686 Denny as [id number] [facility] [address] 2022-07-05 2022-07-05 Outpatient R RADIOLOGY [facility] [id number] Univers 00:00:00 00:00:00 ity of [facility] 2022-06-16 2022-06-16 Outpatient R RADIOLOGY [facility] [id number] Univers 07:56:02 23:59:00 ity of [facility] 2022-06-16 2022-06-16 Hospital Radiology [facility] 1.2.840.114 [id number] Univers 07:56:02 23:59:00 Encounter [place] [id number] [facility] [place] [id number] [facility] [address] 2022-05-25 2022-05-25 Outpatient R RADIOLOGY [facility] [id number] Univers 00:00:00 00:00:00 ity of [facility] 2022-05-21 2022-05-21 Outpatient R RADIOLOGY [facility] [id number] Univers 08:00:01 23:59:00 ity of [facility] 2022-05-21 2022-05-21 [place] 1.2.840.114 [id number] Univers 08:00:01 23:59:00 Encounter [place] [id number] ity of [place] 4.2.7.2.686 [facility] [id number] [facility] [address] 2022-05-20 2022-05-20 Outpatient R RADIOLOGY [facility] [id number] Univers 00:00:00 00:00:00 ity of [facility] 2021-09-11 2021-09-11 (TEL) STLMLC STLMLC [id number] [place] 00:00:00 00:00:00 [facility] 2021-09-01 2021-09-01 Outpatient R RADIOLOGY [facility] [id number] Univers 16:24:28 23:59:00 ity of [facility] 2021-09-01 2021-09-01 Hospital [place] 1.2.840.114 [id number] Univers 16:24:28 23:59:00 Encounter [place] [id number] ity of [place] 4.2.7.2.686 [facility] [id number] [facility] [address] 2021-07-13 2021-07-13 Outpatient R RADIOLOGY [facility] [id number] Univers 00:00:00 00:00:00 ity of [facility] 2021-07-10 2021-07-10 (TEL) STLMLC STLMLC [id number] Co mmon 00:00:00 00:00:00 [facility] 2021-07-01 2021-07-01 Outpatient R RADIOLOGY [facility] [id number] Univers 08:54:05 23:59:00 ity of [facility] 2021-07-01 2021-07-01 [place] 1.2.840.114 [id number] Univers 08:54:05 23:59:00 Encounter [place] [id number] ity of [place] 4.2.7.2.686 [facility] [id number] [facility] [address] 2021-07-01 2021-07-01 Orders Doctor RADHA 1.2.840.114 [id number] Univers 00:00:00 00:00:00 Only Unassigned, GERTRUDE [id number] [facility] 4.2.7.2.686 [facility] [id number] [facility] [address] 2021-06-30 2021-06-30 (TEL) STLMLC STLMLC [id number] Co mmon 00:00:00 00:00:00 [facility] 2021-04-21 2021-04-21 OFFICE STLMLC STLMLC [id number] Co mmon 00:00:00 00:00:00 VISIT EST Spir it PT LEVEL 3 [facility] 2021-03-30 2021-03-30 (TEL) STLMLC STLMLC [id number] Co mmon 00:00:00 00:00:00 [facility] 2021-01-20 2021-01-20 OFFICE STLMLC STLMLC [id number] Co mmon 00:00:00 00:00:00 VISIT EST Spir it PT LEVEL 3 [facility] 2020-10-20 2020-10-20 OFFICE STLMLC STLMLC [id number] Co mmon 00:00:00 00:00:00 VISIT Spirit ESTAB PT - CHI LEVEL 4 [facility] 2020-09-17 2020-09-17 OFFICE STLMLC STLMLC [id number] Co mmon 00:00:00 00:00:00 VISIT EST Spir it PT LEVEL 3 [facility] 2020-09-01 2020-09-01 Outpatient STLMLC STLMLC [id number] Common 00:00:00 00:00:00 [facility] 2020-09-01 2020-09-01 Outpatient STLMLC STLMLC [id number] Common 00:00:00 00:00:00 [facility] 2020-08-21 2020-08-21 Outpatient STLMLC STLMLC [id number] Common 00:00:00 00:00:00 [facility] 2020-08-14 2020-08-14 Outpatient STLMLC STLMLC [id number] Common 00:00:00 00:00:00 [facility] 2020-07-11 2020-07-11 Outpatient STLMLC STLMLC [id number] Common 00:00:00 00:00:00 [facility] 2020-02-26 2020-02-26 [facility] [id number] Common 16:40:00 16:40:[address] [facility] [address] [facility] 2019-09-26 2019-09-26 [facility] [id number] Common 16:20:00 16:20:[address] [facility] 2019-06-22 2019-06-22 [facility] [id number] Common 08:40:00 08:40:00 [facility] [address] [facility] 2019-05-21 2019-05-21 [facility] [id number] Common 15:20:00 15:20:[address] [facility] 2019-04-26 2019-04-26 [facility] [id number] Common 15:22:00 15:22:[address] [facility] 2019-04-24 2019-04-24 [facility] [id number] Common 16:09:00 16:09:[address] [facility] 2019-03-23 2019-03-23 [facility] [id number] Common 16:05:00 16:05:[address] [facility] 2019-03-19 2019-03-19 [facility] [id number] Common 15:00:00 15:00:[address] [facility] 2019-02-23 2019-02-23 [facility] [id number] Common 15:40:00 15:40:[address] [facility] 2019-02-14 2019-02-14 [facility] [id number] Common 13:00:00 13:00:[address] [facility] 2019-02-14 2019-02-14 [facility] [id number] Common 11:36:00 11:36:[address] [facility] 2019-02-02 2019-02-02 Out[facility] [id number] Common 14:41:00 14:41:[address] [facility] 2019-01-30 2019-01-30 [facility] [id number] Common 15:00:00 15:00:[address] [facility] 2018-07-13 2018-07-13 Out[facility] [id number] Common 14:30:00 14:30:[address] [facility] 2018-05-02 2018-05-02 Out[facility] [id number] Common 14:58:00 14:58:[address] [facility] 2018-03-02 2018-03-02 Out[facility] [id number] Common 13:58:00 13:58:[address] [facility] 2018-02-09 2018-02-09 [facility] [id number] Common 08:30:00 08:30:[address] [facility] 2017-11-09 2017-11-09 [facility] [id number] Common 16:02:00 16:02:[address] [facility] Results Test Description Test Time Test Comments Results Result Comments Source ALBUMIN/CREATININE RATIO, URINE, RANDOM 2022-11-09 09:44:13 Test Item Value Reference Range Interpretation Comme nts CREATININE, URINE, CONC. (test 83.1 MG/DL NOT ESTAB code = 207) ALBUMIN, URINE, RANDOM (test 3.0 MG/DL NOT ESTAB code = 62505) CALC ALBUMIN/CREAT, RND (test 36 MG/G <30 H Note: Albumin/Creatinine code = 19210) ratio referenc e interval reflects ADA an d NKF guidelines. URINALYSIS W/REFLEX [id number] 07:54:00 Test Item Value Reference Range Interpretation Comments COLOR (test code = YELLOW YELLOW-STRAW 1501) APPEARANCE (test code = CLEAR CLEAR 1502) SPECIFIC GRAVITY (test 1.019 1.005-1.035 code = 1503) LEUKOCYTE ESTERASE 2+ NEGATIVE A (test code = 1504) NITRITE (test code = POSITIVE NEGATIVE A 1505) pH (test code = 1506) 5.0 5.0-9.0 PROTEIN (test code = NEGATIVE NEGATIVE 1507) GLUCOSE (test code = 3+ NEGATIVE A 1508) KETONES (test code = NEGATIVE NEGATIVE 1509) UROBILINOGEN (test code 0.2 MG/DL See_Comment [Au tomated message] = 1510) The system [employer] generated this result transmitted ref erence range: <=2.0. T he reference range was not used to int erpret this result as normal/abnormal . BILIRUBIN (test code = NEGATIVE NEGATIVE 1511) OCCULT BLOOD (test code TRACE NEGATIVE A = 1512) WHITE BLOOD CELLS (test >50 /HPF 0-5 A code = 1513) RED BLOOD CELLS (test 0-2 /HPF 0-2 PLEAS E NOTE: NEW code = 1514) REFERENCE RANGE EFFECTIVE 10/18. EPITHELIAL CELLS (test 6-10 /HPF 0-10 code = 28656) BACTERIA (test code = 3+ NONE SEEN A 1515) CASTS, HYALINE (test NONE SEEN NONE-TRACE code = 1517) OTHER (test code = PRESENT A YEAST 1518) COMPREHENSIVE METABOLIC [id number] 06:16:28 Test Item Value Reference Range Interpretation Comments GLUCOSE (test code = 357 MG/DL 70-99 H 2216) BUN (test code = 20 MG/DL 03-16) CREATININE (test 0.91 MG/DL 0.60-1.30 code = 2214) eGFR (2020 CKD-EPI) 70 ML/MIN/1.73 >60 (test code = 74761) CALC BUN/CREAT (test 22 RATIO 6-28 code = 2235) SODIUM (test code = 135 MEQ/L [phone]) POTASSIUM (test code 5.1 MEQ/L 3.5-5.4 = 2227) CHLORIDE (test code 101 MEQ/L 95-107 = 2214) CARBON DIOXIDE (test 20 MEQ/L 19-31 code = 220) CALCIUM (test code = 9.5 MG/DL 8.5-10.5 2208) PROTEIN, TOTAL (test 7.4 G/DL 6.1-8.3 code = 222) ALBUMIN (test code = 3.7 G/DL 3.5-5.2 2200) CALC GLOBULIN (test 3.7 G/DL 1.9-3.7 code = 224) CALC A/G RATIO (test 1.0 RATIO 1.0-2.6 code = 223) BILIRUBIN, TOTAL 0.5 MG/DL See_Comment [Automated message] (test code = 220) The syste m which generated this result transmit rickey reference range : <=1.2. The refe rence range was not u sed to interpret th is result as normal/abnormal . ALKALINE PHOSPHATASE 116 U/L 40-140 (test code = 2204) AST (test code = 39 U/L 9-40 2217) ALT (test code = 33 U/L 5-40 2218) LIPID [id number] 06:16:28 Test Item Value Reference Range Interpretation Comments CHOLESTEROL (test 163 MG/DL <200 code = 2210) TRIGLYCERIDES (test 100 MG/DL <150 code = 2232) HDL CHOLESTEROL (test 61 MG/DL >39 code = 2220) CALC LDL CHOL (test 82 MG/DL <100 NOTE: C ALCULATED LDL code = 2237) IS BASED ON PAULO-GREY METHOD WHICHINCLUDES ADJUSTABLE TRIGLYCERIDE:VL DL CHOLESTEROL RAT IO.THIS FACTOR VARIES B Y MEASURED TRIGLY CERIDE AND NON-HDLCHOL ESTEROL CONCENTRATIONS WITH INCREASED CALCU LATED LDL SEENIN HIGH ER TRIGLYCERIDE OR LOWER NON-HDL SPECIME NS. FOR MOREINFORMATION , SEE CLIENT ANNOUNCE MENT AT [email or web address] [email or web address] RATIO LDL/HDL 1.34 RATIO <3.22 (test code = 2238) HEMOGLOBIN [id number] 05:39:12 Test Item Value Reference Range Interpretation Comments HEMOGLOBIN A1c (test 11.7 % 4.2-5.6 H AMERIC AN DIABETES code = 15445) ASSOCIATION IDELINES FOR HGB A1C: PREDIABETES/INC REASED RISK . . . . . . . 5 .7-6.4% DIAGNOSIS OF DI ABETES . . . . . . . . . >=6 .5% WITH CONFIRMATION OR APPROPRIATE SYMPTOMS NOTE: ASSAY MAY BE AFFECTED BY HEMOGLOBINOPATH IES (SICKLE CELL ANEMIA, S- C DISEASE, OTHERS) OR PAVEL FICIALLY LOWERED BY DECR EASED RED CELL SURVIVAL ( HEMOLYTIC ANEMIAS, BLOOD LOSS, ETC.). CONSIDER ALTERNATE TESTING OR LABO RATORY CONSULTATION. * [facility] has important patho logy staff changes effecti ve 09/22/2022. New pathology staff will provide uninter rupted, excellent patie nt care and clinical consul tation. See URL: [email or web address] UNLESS OTH ERWISE INDICATED, ALL TESTING PERFORMED AT [facility] [address] [facility] [place] [address] [facility] DIRECTOR: Keven CABELLO TERRY NUMBER [id number] CAP ACCREDITATION N O. [id number] CBC W/AUTO DIFF WITH [id number] 04:36:49 Test Item Value Reference Range Interpretation Comments WBC (test code = 5.7 K/UL 3.5-11.0 1001) RBC (test code = 3.51 M/UL 3.80-5.40 L 1002) HEMOGLOBIN (test code 9.9 G/DL 11.5-15.5 L = 1003) HEMATOCRIT (test code 31.9 % 34.0-45.0 L = 1004) MCV (test code = 90.9 fL 80.0-99.0 1005) MCH (test code = 28.2 PG 25.0-33.0 1006) MCHC (test code = 31.0 G/DL 31.0-36.0 1007) RDW (test code = 13.9 % 11.5-15.0 1038) NEUTROPHILS (test 71.3 % code = 1008) LYMPHOCYTES (test 18.9 % code = 1010) MONOCYTES (test code 6.3 % = 1011) EOSINOPHILS (test 2.6 % code = 1012) BASOPHILS (test code 0.7 % = 1013) IMMATURE GRANULOCYTES 0.2 % (test code = 1036) NUCLEATED RBCS (test 0.0 /100 WBC'S See_Comment [Aut omated code = 1065) message] The sy stem which generated this result transmitted reference range : 0.0. The refere nce range was not u sed to interpret th is result as normal/abnormal . PLATELET COUNT (test 85 K/UL 130-400 L code = 1015) ABSOLUTE NEUTROPHILS 4.06 K/UL 1.50-7.50 (test code = 1066) ABSOLUTE LYMPHOCYTES 1.08 K/UL 1.00-4.00 (test code = 1067) ABSOLUTE MONOCYTES 0.36 K/UL 0.20-1.00 (test code = 1068) ABSOLUTE EOSINOPHILS 0.15 K/UL 0.00-0.50 (test code = 1040) ABSOLUTE BASOPHILS 0.04 K/UL 0.00-0.20 (test code = 1069) ABS IMMATURE 0.01 K/UL 0.00-0.10 GRANULOCYTES (test code = 1020) ABS NUCLEATED RBCS 0.00 K/UL 0.00-0.11 (test code = 46920) HEMOGLOBIN [id number] 00:00:00 Test Item Value Reference Range Interpretation Comments A1C (test code = 4548-4) 8.2 HEMOGLOBIN [id number] 00:00:00 Test Item Value Reference Range Interpretation Comments A1C (test code = 4548-4) 10.6
[2023-06-16 06:22] LABS: Hematocrit 32.2 % (36.0-45.0); Lymphocytes % 5.4 % (15.3-44.8); MCV 84.9 fL (80-100); MPV 10.1 fL (7.6-11.3); Platelets 163 thou/uL (152-406)
[2023-06-16] MEDS ORDERED: NA CHLORIDE 0.9% 1,000 ML ONE ×3 (06:22→12:10)
[2023-06-16] MEDS ORDERED: ONDANSETRON 4 MG/2 ML VIAL ONE (06:22)
[2023-06-16] MEDS ORDERED: FAMOTIDINE 20 MG/2 ML VIAL IV ONE (06:22)
[2023-06-16] MEDS ORDERED: MORPHINE 4 MG/ML SYR ONE ×2 (06:35→08:29)
[2023-06-16] MEDS ORDERED: KETOROLAC 30 MG/ML INJ ONE (06:35)
[2023-06-16 06:57] LABS: White Blood Cell Scan OK (OK)
[2023-06-16 06:58] LABS: Blood Morphology Comment NOT SEEN (NOT SEEN); Platelet Estimate ADEQ
[2023-06-16 08:29] LABS: Specific Gravity 1.009 (1.005-1.030); Urine Bacteria Loaded /HPF (<20); Urine Bilirubin NEGATIVE (Negative); Urine Blood 2+ (Negative); Urine Clarity Extremely Turbid (Clear); Urine Color Light-Orange (Yellow); Urine Glucose 4+ (Over) (Negative); Urine Mucus Slight /HPF (None Seen); Urine Protein 1+ (Negative); Urine RBC 21-50 /HPF (None Seen); Urine Urobilinogen Normal (Normal); Urine WBC Clump Many /HPF (None Seen)
[2023-06-16] MEDS ORDERED: METRONIDAZOLE 500mg IVPB 500 MG/100 ML BAG IV ONE (08:29)
[2023-06-16] MEDS ORDERED: CEFTRIAXONE 1000 MG/VIAL ONE (08:29)
[2023-06-16 08:49] LABS: Albumin 2.5 g/dL (3.4-5.0); Potassium 4.4 mEq/L (3.5-5.1)
--- NOTE | 2023-06-16 09:45 | RAD REPORT ---
EXAM DESCRIPTION: CT - Abdomen Pelvis Wo Contrast - 06/16/2023 9:01 am CLINICAL HISTORY: Abdominal pain COMPARISON: 2018 TECHNIQUE: Computed axial tomography of the abdomen and pelvis was obtained. IV and oral contrast we re not requested. All CT scans are performed using dose optimization technique as appropriate and may include automated exposure control or mA/KV adjustment according to patient size. FINDINGS: The evaluation of solid organs, vessels and bowel is limited secondary to the lack of con trast administration. A cirrhotic liver. Esophageal varices. Spleen measures 16 centimeters. Cholecystectomy. Small to moderate hiatal hernia Pancreas, adrenals and left kidney are unremarkable. Borderline right hydronephrosis. Proximal and mid right ureter borderline dilated. A ureteral calculu s is not seen The appendix is normal. There is no evidence of diverticulitis. Hysterectomy. No adnexal mass. Small umbilical hernia Small to moderate left ventral hernia near midline contains fat. This is several centimeters superior to the umbilical hernia IMPRESSION: Cirrhosis Borderline right hydronephrosis and dilatation of proximal and mid right ureter. No calculus seen. Th is is of questionable significance
[2023-06-16] MEDS ORDERED: INSULIN REGULAR (HUMAN) 100 UNIT/ML ONE ×2 (10:11→12:10)
--- NOTE | 2023-06-16 10:36 | EDPHYS ---
Physician Documentation [facility] Name: Ester Akins Age: 63 yrs Sex: Female : 1960 Arrival Date: 06/16/2023 Time: 05:22 Bed 4 Private MD: ED Physician Vitor Young HPI: 06/16 05:52 This 63 yrs old Female presents to ER via Unassigned with complaints of sp4 Nausea/Vomiting. 10:25 63-year-old female with past medical history of diabetes, esophageal varices presents ms3 to the emergency department for nausea, vomiting, diarrhea, abdominal pain. Patient states she developed vomiting on Tuesday and diarrhea on Tuesday. Patient states her abdominal pain developed along with these other symptoms. Patient describes the pain as moderate and located in her epigastric region. Patient denies any alleviating or inciting factors.. Historical: - Allergies: 06:03 No Known Allergies; rv - PMHx: 06:03 Diabetes - IDDM; esophageal varices (Diabetes - IDDM); rv - Immunization history:: Adult Immunizations up to date. - Social history:: Smoking status: Patient denies any tobacco usage or history of. ROS: 10:25 Constitutional: Negative for fever, and chills. ms3 10:25 MS/Extremity: Negative for injury and deformity, 10:25 Abdomen/GI: Positive for abdominal pain, nausea, vomiting, and diarrhea, 10:25 : Negative for urinary symptoms, urinary frequency, small amounts, 10:25 All other systems are negative, Exam: 10:25 Constitutional: This is a well developed, well nourished patient who is awake, alert, ms3 and in no acute distress. Head/Face: Normocephalic, atraumatic. Neck: Trachea midline, no cervical lymphadenopathy. Supple, full range of motion without nuchal rigidity, or vertebral point tenderness. No Meningismus. Chest/axilla: Normal chest wall appearance and motion. Nontender with no deformity. Cardiovascular: Regular rate and rhythm with a normal S1 and S2. No gallops, murmurs, or rubs. Normal PMI, no JVD. No pulse deficits. Respiratory: Lungs have equal breath sounds bilaterally, clear to auscultation and percussion. No rales, rhonchi or wheezes noted. No increased work of breathing, no retractions or nasal flaring. Abdomen/GI: Soft, non-tender, with normal bowel sounds. No distension or tympany. No guarding or rebound. No evidence of tenderness throughout. Skin: Warm, dry with normal turgor. Normal color with no rashes, no lesions, and no evidence of cellulitis. MS/ Extremity: Pulses equal, no cyanosis. Neurovascular intact. Full, normal range of motion. Vital Signs: 06:01 BP 154 / 78; Pulse 78; Resp 17; Temp 98.1; Pulse Ox 100% ; Weight 90.72 kg; rv 07:22 BP 143 / 65; Pulse 74; Resp 18; Pulse Ox 97% on R/A; ph 08:26 BP 130 / 68; Pulse 77; Resp 16 S; Pulse Ox 98% on R/A; Pain 5/10; kc6 09:30 BP 115 / 67; Pulse 73; Resp 16 S; Pulse Ox 95% on R/A; kc6 10:24 BP 144 / 75; Pulse 76; Resp 18 S; Pulse Ox 100% on R/A; kc6 12:15 BP 128 / 61; Pulse 70; Resp 16 S; Pulse Ox 100% on R/A; kc6 13:32 BP 118 / 62; Pulse 68; Resp 16; Pulse Ox 98% on R/A; ph 08:26 Pain Scale: Adult kc6 MDM: 05:52 Patient medically screened. sp4 10:25 Differential diagnosis: Nonspecific abd pain, gastritis, cholecystitis, pancreatitis, ms3 appendicitis, diverticulitis, gastroenteritis, Pyelonephritis. Data reviewed: vital signs, nurses notes, lab test result(s), radiologic studies, and as a result, I will admit patient. Consideration of Admission/Observation Patient was admitted/placed on observation. Management of patient was discussed with the following: Hospitalist: Dr Hernandez. I considered the following discharge prescriptions or medication management in the emergency department Medications were administered in the Emergency Department. See MAR. Care significantly affected by the following chronic conditions: Diabetes. Counseling: I had a detailed discussion with the patient and/or guardian regarding the historical points, exam findings, and any diagnostic results supporting the discharge/admit diagnosis, lab results, radiology results, the need for further work-up and treatment in the hospital. ED course: Discussed case with Dr Hernandez and he accepts patient for admission.. 12:44 ED course: Additional history obtained by Dr Hernandez that patient has had dark stools and ms3 has vomited dark substance. Concerned patient could have a GI bleed and recommends transferring patientGuilherme Barnett does not have GI group leader [employer] testing at this time.. 06/16 06:00 Order name: CBC with Diff; Complete Time: 07:11 [facility] 06/16 06:00 Order name: CMP; Complete Time: 09:26 [facility] 06/16 06:00 Order name: Urinalysis w/ reflexes; Complete Time: 08:32 [facility] 06/16 06:00 Order name: COVID-19 SARS RT PCR [facility] 06/16 06:00 Order name: Influenza Screen (a \T\ B); Complete Time: 07:11 [facility] 06/16 06:27 Order name: CBC Smear Scan; Complete Time: 07:11 [facility] 06/16 07:12 Order name: Blood Culture Adult (2) [facility] 06/16 08:43 Order name: Urine Culture [facility] 06/16 08:49 Order name: Lipase; Complete Time: 09:59 [facility] 06/16 11:26 Order name: Lactate w/ 2H reflex if indic.; Complete Time: 12:29 [facility] 06/16 11:26 Order name: Protime (+INR); Complete Time: 12:29 [facility] 06/16 11:32 Order name: BMP; Complete Time: 15:05 kc6 06/16 11:50 Order name: Glucose, Ancillary Testing; Complete Time: 12:29 [facility] 06/16 14:02 Order name: Glucose, Ancillary Testing; Complete Time: 15:05 [facility] 06/16 09:02 Order name: Abdomen ; Complete Time: 09:50 [facility] 06/16 06:00 Order name: IV Saline Lock; Complete Time: 06:34 [facility] 06/16 06:00 Order name: Labs collected and sent; Complete Time: 06:34 [facility] 06/16 10:40 Order name: Misc. Order: Repeat BMP after 2nd liter bolus complete; Complete Time: 13:[id number] Administered Medications: 06:16 Drug: NS 0.9% IV 1000 ml IV at 1 bolus Per protocol; 1000 mL bolus Route: IV; Rate: 1 jb4 bolus; Site: right antecubital; 07:00 Follow up: Response: No adverse reaction; IV Status: Completed infusion; IV Intake: kc6 1000ml 06:16 Drug: Famotidine IVP 20 mg IVP once; dilute with 10 mL 0.9% NaCl; give over 2 minutes jb4 Route: IVP; Site: right antecubital; 07:00 Follow up: Response: No adverse reaction kc6 06:16 Drug: Ondansetron IVP 8 mg IVP once; over 2 minutes Route: IVP; Site: right antecubital;jb4 07:00 Follow up: Response: No adverse reaction; Nausea is decreased; Vomiting decreased kc6 06:29 Drug: morphine IVP or IV 4 mg IVP once over 4 mins Route: IVP; Infused Over: 4 mins; jb4 Site: right antecubital; 07:00 Follow up: Response: No adverse reaction; Pain is unchanged, physician notified; RASS: kc Alert and Calm (0) 06:29 Drug: Ketorolac IVP 30 mg IVP once Route: IVP; Site: right antecubital; jb4 07:00 Follow up: Response: No adverse reaction; Pain is unchanged, physician notified 6 08:26 Drug: Rocephin - Rocephin (cefTRIAXone) IVPB 1 grams IVPB once over 30 mins; (mix in 50 kc6 mL NS) Route: IVPB; Infused Over: 30 mins; Site: right forearm; :22 Follow up: Response: No adverse reaction; IV Status: Completed infusion; IV Intake: [id number] 08:26 Drug: NS 0.9% IV 1000 ml IV at 125 ml/hr continuous Route: IV; Rate: 125 ml/hr; Site: [facility] right forearm; 15:07 Follow up: Response: No adverse reaction; IV Status: Infusion continued upon transfer kc6 08:26 Drug: metroNIDAZOLE IVPB 500 mg 100 ml IVPB at 200 ml/hr once over 30 mins Volume: 100 kc6 ml; Route: IVPB; Rate: 200 ml/hr; Infused Over: 30 mins; Site: right forearm; 10:22 Follow up: Response: No adverse reaction; IV Status: Completed infusion; IV Intake: kc6 100ml 08:26 Drug: morphine IVP or IV 4 mg IVP once over 4 mins Route: IVP; Infused Over: 4 mins; kc6 Site: right forearm; 09:30 Follow up: Response: No adverse reaction; Pain is decreased; RASS: Alert and Calm (0) kc6 10:00 Drug: Insulin Regular Human Sub-Q 10 units Sub-Q once {Co-Signature: ph (Sylvia Castellano RN).} Route: Sub-Q; Site: right upper arm; 12:14 Follow up: Response: No adverse reaction; Blood sugar is unchanged kc 12:00 Drug: NS 0.9% IV 1000 ml IV at 1000 ml once Route: IV; Rate: 1000 ml; Site: right kc6 forearm; 15:08 Follow up: Response: No adverse reaction; IV Status: Completed infusion; IV Intake: kc6 1000ml 12:00 Drug: Insulin Regular Human IVP 5 units IVP once {Co-Signature: ph (Sylvia Castellano RN).} Route: IVP; Site: right forearm; 15:08 Follow up: Response: No adverse reaction; Blood sugar is lowered kc6 Disposition Summary: 06/16/23 13:09 Transfer Ordered Notes: Transfer Location: Other Acute Care Facility ms3 Reason: Higher level of care ms3 Condition: Stable(06/16/23 13:09) ms3 Problem: new(06/16/23 13:09) ms3 Symptoms: are unchanged(06/16/23 13:09) ms3 Accepting Physician: Dr Ara Reina(06/16/23 15:10) [facility] Diagnosis - Pyelonephritis acute(06/16/23 13:09) ms3 - Acute kidney failure, unspecified(06/16/23 13:09) ms3 - Type 2 diabetes mellitus with hyperglycemia(06/16/23 13:09) ms3 - Abdominal pain, Generalized(06/16/23 13:09) ms3 - Anemia, unspecified ms3 Forms: - Medication Reconciliation Form ms3 - SBAR form ms3 Signatures: Dispatcher [employer] EDMS Mitchell Ndiaye, GROUNDING ENGINEER-C GROUNDING ENGINEER-Cla1 Kiran Cortez, RN RN jb4 Alex Enriquez, RN RN rv Vitor Young DO DO ms3 Bailey Nichols RN RN kc6 Pb Lau MD MD sp4 Sylvia Castellano RN ph Corrections: (The following items were deleted from the chart) 08:48 06:00 LIPASE+C.LAB.BRZ ordered. EDMS EDMS 09:02 06:11 Abdomen Pelvis W Con+CT.RAD.BRZ ordered. EDMS EDMS 12:09 11:48 LACTATE+C.LAB.BRZ ordered. EDMS EDMS 12:09 11:48 PROTIME (+INR)+COAG.LAB.BRZ ordered. EDMS EDMS 13:08 10:35 Inpatient Admission ms3 ms3 13:08 10:35 Darien Hernandez ms3 ms3 13:08 10:35 Telemetry/MedSurg (Inpatient) ms3 ms3 13:08 10:35 Stable ms3 ms3 13:08 10:35 new ms3 ms3 13:08 10:35 are unchanged ms3 ms3 13:08 10:35 Standard ms3 ms3 13:08 10:35 ms3 ms3 13:08 10:35 Pyelonephritis acute ms3 ms3 13:08 10:35 Acute kidney failure, unspecified ms3 ms3 13:08 10:35 Type 2 diabetes mellitus with hyperglycemia ms3 ms3 13:08 10:35 Abdominal pain, Generalized ms3 ms3 15:10 13:09 Dr Ara Reina ms3 kc6
--- NOTE | 2023-06-16 10:36 | ER ---
Nurse's Notes [facility] Name: Ester Akins Age: 63 yrs Sex: Female : 1960 Arrival Date: 06/16/2023 Time: 05:22 Bed 4 Private MD: Diagnosis: Pyelonephritis acute;Acute kidney failure, unspecified;Type 2 diabetes mellitus with hyperglycemia;Abdominal pain, Generalized;Anemia, unspecified Presentation: 06/16 06:01 Chief complaint: Patient states: abd pain, vomiting and diarrhea since Tuesday. denies rv fever. unable to tolerate anything by PO. Coronavirus screen: At this time, the client does not indicate any symptoms associated with coronavirus-19. Ebola Screen: No symptoms or risks identified at this time. Initial Sepsis Screen: Does the patient meet any 2 criteria? No. Patient's initial sepsis screen is negative. Does the patient have a suspected source of infection? No. Patient's initial sepsis screen is negative. Risk Assessment: Do you want to hurt yourself or someone else? Patient reports no desire to harm self or others. Onset of symptoms was June 16, 2023. 06:01 Method Of Arrival: Ambulatory rv 06:01 Acuity: DEDRA 2 rv Triage Assessment: 06:12 General: Appears comfortable, Behavior is calm, cooperative. Pain: Complains of pain in rv abdomen. Neuro: Level of Consciousness is awake, alert, obeys commands, Oriented to person, place, time, situation. Cardiovascular: Capillary refill < 3 seconds Patient's skin is warm and dry. Respiratory: Airway is patent Respiratory effort is even, unlabored. GI: Abdomen is flat, non-distended, Reports diarrhea, nausea, vomiting. : No signs and/or symptoms were reported regarding the genitourinary system. Derm: Skin is intact. Historical: - Allergies: 06:03 No Known Allergies; rv - PMHx: 06:03 Diabetes - IDDM; esophageal varices (Diabetes - IDDM); rv - Immunization history:: Adult Immunizations up to date. - Social history:: Smoking status: Patient denies any tobacco usage or history of. Screenin:13 [facility] ED Fall Risk Assessment (Adult) History of falling in the last 3 months, rv including since admission No falls in past 3 months (0 pts) Score/Fall Risk Level 0 - 2 = Low Risk Oriented to surroundings, Maintained a safe environment, Educated pt \T\ family on fall prevention, incl call for assistance when getting out of bed. Abuse screen: Denies threats or abuse. Denies injuries from another. Nutritional screening: No deficits noted. Tuberculosis screening: No symptoms or risk factors identified. Assessment: 06:34 General: see triage note. jb4 07:23 Reassessment: Patient appears in no apparent distress at this time. Patient and/or ph family updated on plan of care and expected duration. Pain level reassessed. Patient is alert, oriented x 3, equal unlabored respirations, skin warm/dry/pink. 08:23 General: Appears in no apparent distress. comfortable, Behavior is calm, cooperative, kc6 appropriate for age. Pain: Complains of pain in abdomen. Neuro: Level of Consciousness is awake, alert, obeys commands, Oriented to person, place, time, situation, Appropriate for age. Cardiovascular: Capillary refill < 3 seconds. Respiratory: Airway is patent Trachea midline Respiratory effort is even, unlabored, Respiratory pattern is regular, symmetrical. GI: Reports diarrhea, nausea, vomiting. : No signs and/or symptoms were reported regarding the genitourinary system. Urine is clear. EENT: No signs and/or symptoms were reported regarding the EENT system. Derm: No signs and/or symptoms reported regarding the dermatologic system. Skin is intact, is healthy with good turgor, Skin is pink, warm \T\ dry. Musculoskeletal: No signs and/or symptoms reported regarding the musculoskeletal system. Circulation, motion, and sensation intact. Capillary refill < 3 seconds, Range of motion: intact in all extremities. 09:29 Reassessment: Patient appears in no apparent distress at this time. No changes from kc6 previously documented assessment. Patient and/or family updated on plan of care and expected duration. Pain level reassessed. Patient is alert, oriented x 3, equal unlabored respirations, skin warm/dry/pink. 10:22 Reassessment: Patient appears in no apparent distress at this time. No changes from kc6 previously documented assessment. Patient and/or family updated on plan of care and expected duration. Pain level reassessed. Patient is alert, oriented x 3, equal unlabored respirations, skin warm/dry/pink. 11:22 Reassessment: Patient appears in no apparent distress at this time. No changes from kc6 previously documented assessment. Patient and/or family updated on plan of care and expected duration. Pain level reassessed. Patient is alert, oriented x 3, equal unlabored respirations, skin warm/dry/pink. 12:22 Reassessment: Patient appears in no apparent distress at this time. No changes from kc6 previously documented assessment. Patient and/or family updated on plan of care and expected duration. Pain level reassessed. Patient is alert, oriented x 3, equal unlabored respirations, skin warm/dry/pink. 13:22 Reassessment: Patient appears in no apparent distress at this time. No changes from kc6 previously documented assessment. Patient and/or family updated on plan of care and expected duration. Pain level reassessed. Patient is alert, oriented x 3, equal unlabored respirations, skin warm/dry/pink. 14:22 Reassessment: Patient appears in no apparent distress at this time. No changes from kc6 previously documented assessment. Patient and/or family updated on plan of care and expected duration. Pain level reassessed. Patient is alert, oriented x 3, equal unlabored respirations, skin warm/dry/pink. 06/17 07:19 Reassessment: Notified JASIEL Matamoros at [facility] of a positive Blood Culture pf1 result of gram negative rods. Vital Signs: 06/16 06:01 BP 154 / 78; Pulse 78; Resp 17; Temp 98.1; Pulse Ox 100% ; Weight 90.72 kg; rv 07:22 BP 143 / 65; Pulse 74; Resp 18; Pulse Ox 97% on R/A; ph 08:26 BP 130 / 68; Pulse 77; Resp 16 S; Pulse Ox 98% on R/A; Pain 5/10; kc6 09:30 BP 115 / 67; Pulse 73; Resp 16 S; Pulse Ox 95% on R/A; kc6 10:24 BP 144 / 75; Pulse 76; Resp 18 S; Pulse Ox 100% on R/A; kc6 12:15 BP 128 / 61; Pulse 70; Resp 16 S; Pulse Ox 100% on R/A; kc6 13:32 BP 118 / 62; Pulse 68; Resp 16; Pulse Ox 98% on R/A; ph 08:26 Pain Scale: Adult kc6 ED Course: 05:27 Patient arrived in ED. jj6 05:52 Pb Lau MD is Attending Physician. sp4 06:01 Alex Enriquez, RN is Primary Nurse. rv 06:03 Triage completed. rv 06:12 Arm band placed on right wrist. rv 06:13 Patient has correct armband on for positive identification. Client placed on continuous rv cardiac and pulse oximetry monitoring. NIBP monitoring applied. radiologic technician on. 06:13 No provider procedures requiring assistance completed. Inserted saline lock: 20 gauge rv in right forearm, using aseptic technique. Blood collected. 07:13 Attending Physician role handed off by Pb Lau MD ms3 07:13 Vitor Young DO is Attending Physician. ms3 08:03 Blood Culture Adult (2) Sent. bc6 08:03 Urinalysis w/ reflexes Sent. bc6 09:02 Abdomen In Process Unspecified. EDMS 10:33 Darien Hernandez MD is Hospitalizing Provider. ms3 12:00 Lactate w/ 2H reflex if indic. Sent. kc6 12:00 Protime (+INR) Sent. kc6 13:53 BMP Sent. kc6 15:09 Patient transferred, IV remains in place. kc6 Administered Medications: 06:16 Drug: NS 0.9% IV 1000 ml IV at 1 bolus Per protocol; 1000 mL bolus Route: IV; Rate: 1 jb4 bolus; Site: right antecubital; 07:00 Follow up: Response: No adverse reaction; IV Status: Completed infusion; IV Intake: kc6 1000ml 06:16 Drug: Famotidine IVP 20 mg IVP once; dilute with 10 mL 0.9% NaCl; give over 2 minutes jb4 Route: IVP; Site: right antecubital; 07:00 Follow up: Response: No adverse reaction kc6 06:16 Drug: Ondansetron IVP 8 mg IVP once; over 2 minutes Route: IVP; Site: right antecubital;jb4 07:00 Follow up: Response: No adverse reaction; Nausea is decreased; Vomiting decreased kc6 06:29 Drug: morphine IVP or IV 4 mg IVP once over 4 mins Route: IVP; Infused Over: 4 mins; jb4 Site: right antecubital; 07:00 Follow up: Response: No adverse reaction; Pain is unchanged, physician notified; RASS: kc6 Alert and Calm (0) 06:29 Drug: Ketorolac IVP 30 mg IVP once Route: IVP; Site: right antecubital; jb4 07:00 Follow up: Response: No adverse reaction; Pain is unchanged, physician notified 6 08:26 Drug: Rocephin - Rocephin (cefTRIAXone) IVPB 1 grams IVPB once over 30 mins; (mix in 50 kc6 mL NS) Route: IVPB; Infused Over: 30 mins; Site: right forearm; 10:22 Follow up: Response: No adverse reaction; IV Status: Completed infusion; IV Intake: [id number] 08:26 Drug: NS 0.9% IV 1000 ml IV at 125 ml/hr continuous Route: IV; Rate: 125 ml/hr; Site: [facility] right [facility]; 15:07 Follow up: Response: No adverse reaction; IV Status: Infusion continued upon transfer 6 08:26 Drug: metroNIDAZOLE IVPB 500 mg 100 ml IVPB at 200 ml/hr once over 30 mins Volume: 100 kc6 ml; Route: IVPB; Rate: 200 ml/hr; Infused Over: 30 mins; Site: right forearm; :22 Follow up: Response: No adverse reaction; IV Status: Completed infusion; IV Intake: kc6 100ml 08:26 Drug: morphine IVP or IV 4 mg IVP once over 4 mins Route: IVP; Infused Over: 4 mins; [facility] Site: right forearm; 09:30 Follow up: Response: No adverse reaction; Pain is decreased; RASS: Alert and Calm (0) [facility] 10:00 Drug: Insulin Regular Human Sub-Q 10 units Sub-Q once {Co-Signature: ph (Sylvia Castellano RN).} Route: Sub-Q; Site: right upper arm; 12:14 Follow up: Response: No adverse reaction; Blood sugar is unchanged [facility] 12:00 Drug: NS 0.9% IV 1000 ml IV at 1000 ml once Route: IV; Rate: 1000 ml; Site: right [facility] forearm; 15:08 Follow up: Response: No adverse reaction; IV Status: Completed infusion; IV Intake: kc6 1000ml 12:00 Drug: Insulin Regular Human IVP 5 units IVP once {Co-Signature: ph (Sylvia Castellano RN).} Route: IVP; Site: right forearm; 15:08 Follow up: Response: No adverse reaction; Blood sugar is lowered kc6 Medication: 06:13 VIS not applicable for this client. rv Intake: 07:00 IV: 1000ml; Total: 1000ml. kc6 10:22 IV: 50ml; Total: 1050ml. kc6 10:22 IV: 100ml; Total: 1150ml. kc6 15:08 IV: 1000ml; Total: 2150ml. kc6 Outcome: 10:35 Decision to Hospitalize by Provider. ms3 13:09 ER care complete, transfer ordered by . ms3 15:08 Transferred by ground EMS to [facility], Transfer form completed. kc6 Note: report called to JASIEL [place] 15:08 Condition: good 15:08 Instructed on the need for transfer, 15:10 Patient left the ED. kc6 Signatures: Dispatcher [employer] EDSylvia Eastman RN RN ph Kiran Cortez RN RN jb4 Alex Enriquez RN RN rv Vitor Young DO DO ms3 Heather Warner jj6 Bailey Nichols RN RN kc6 Lorraine Ocampo RN RN pf1 Yuliana Robertson Sergey, MD MD sp4 Sylvia Castellano RN ph Corrections: (The following items were deleted from the chart) 09:03 08:26 Reassessment: Patient appears in no apparent distress at this time. No changes kc6 from previously documented assessment. Patient and/or family updated on plan of care and expected duration. Pain level reassessed. Patient is alert, oriented x 3, equal unlabored respirations, skin warm/dry/pink. kc6 12:09 12:00 PROTIME (+INR)+COAG.LAB.BRZ drawn and sent. kc6 EDMS
--- NOTE | 2023-06-16 10:52 | P.HP ---
Certification for Inpatient Patient admitted to: Inpatient With expected LOS: >2 Midnights Patient will require the following post-hospital care: None Practitioner: I am a practitioner with admitting privileges, knowledge of patient current condition, hospital course, and medical plan of care. Services: Services provided to patient in accordance with Admission requirements found in Title 42 Section 412.3 of the Code of Federal Regulations Patient History Date of Service: 06/16/23 Reason for admission: JAIRO, intractable vomiting, hyperglycemia History of Present Illness: 63-year-old female with history of nonalcoholic fatty liver/cirrhosis, insulin- dependent diabetes presents to the emergency department chief complaint of nausea, vomiting, diarrhea. Her symptoms started on 06/11/2023 with vomiting about 10 minutes after eating a watermelon, the following day she developed diarrhea usually about once a day, abdominal pain. She is unable to keep anything down for the past few days with frequent vomiting. She does have a history of esophageal varices, denies any hematochezia, melena or hematemesis. She was evaluated in the emergency department labs are significant for leukocytosis white blood cell antibody 7 hemoglobin 10.6 sodium 125 chloride 95 bicarb 18 creatinine 3.8 glucose 599 lipase 46 UA with leuk esterase, bacteria nitrite negative. Denies any urinary symptoms. Anion gap is 12 currently, given IV fluids, IV antibiotics, insulin in ED. Will need to be admitted for intractable nausea/vomiting, acute kidney injury. Allergies No Known Drug Allergies Allergy (Verified 04/10/19 07:46) Unknown Home Medications: Lisinopril/Hydrochlorothiazide [Lisinopril-Hctz 20-12.5 mg Tab] 1 tab PO DAILY 05/08/18 Metformin HCl 1,000 mg PO BIDWM 05/08/18 Sertraline HCl 50 mg PO DAILY 05/08/18 Pantoprazole Sodium [Protonix] 40 mg PO DAILY 07/04/18 Sitagliptin Phosphate [Januvia] 50 mg PO DAILY 04/10/19 - Past Medical/Surgical History Diabetic: Yes -: hypertension -: depression -: fatty liver/cirrhosis -: diabetes insulin-dependent diabetes -: hysterectomy -: ovarian benign tumor removal -: cholecystectomy Psychosocial/ Personal History: Lives at home with family - Family History Mother -: Cancer - Social History Smoking Status: Never smoker Alcohol use: No CD- Drugs: No Caffeine use: Yes Place of Residence: Home Review of Systems 10-point ROS is otherwise unremarkable Gastrointestinal: Nausea, Vomiting, Abdominal Pain, Diarrhea Physical Examination - Physical Exam General: Alert, In no apparent distress, Oriented x3, Obese HEENT: Atraumatic, Mucous membr. moist/pink (Mucous membranes dry) Neck: Supple Respiratory: Clear to auscultation bilaterally, Normal air movement Cardiovascular: Regular rate/rhythm, Normal S1 S2 Gastrointestinal: Normal bowel sounds, No tenderness Musculoskeletal: No tenderness Integumentary: No rashes Neurological: Normal speech, Normal strength at 5/5 x4 extr, Normal tone, Normal affect - Studies Laboratory Data (last 24 hrs) 06/16/23 06/16/23 06/16/23 07:45 07:45 06:13 WBC 18.70 H Hgb 10.6 L Hct 32.2 L Plt Count 163 Sodium 125 L Potassium 4.4 BUN 68 H Creatinine 3.80 H Glucose 599 H* Total Bilirubin 1.0 AST 13 L ALT 20 Alkaline Phosphatase 136 H Lipase 46 Cancelled Microbiology Data (last 24 hrs): 06/16/23 06:15 Nasopharnyx Influenza Type A Antigen Screen - Final 06/16/23 06:15 Nasopharnyx Influenza Type B Antigen Screen - Final Assessment and Plan - Plan Assessment: Intractable N/V/D JAIRO Diabetes mellitus type 2insulin-dependent with hyperglycemia Pseudohyponatremia Leukocytosis history of cirrhosis/esophageal varices Plan: Intractable N/V/D N.p.o., IVF, as needed antiemetics CT abdomen pelvis shows cirrhosis, borderline right hydronephrosis and dilatation of proximal and mid right ureter. No calculus seen. This is of questionable significance. Currently denies abdominal pain/no tenderness Continue empiric antibiotics Rocephin/Flagyl given leukocytosis JAIRO No known history of underlying kidney disease Nephrology consult, renal ultrasound ordered Continue aggressive IV fluids Avoid nephrotoxic agents/contrast Repeat chemistry later today Diabetes mellitus type 2insulin-dependent with hyperglycemia Pseudohyponatremia Anion gap 12 Getting additional IV fluid bolus now Recheck chemistry after IV fluid bolus, if there is not significant improvement in blood sugar or anion gap may need insulin drip/ICU level of care Obtain and verify home medication, restart long-acting insulin when appropriate Leukocytosis Volume contraction, reactive leukocytosis likely contributing Continue empiric antibiotics with Rocephin/Flagyl Blood cultures obtained-lactate pending UA with possible urinary tract infection although no symptoms present Await culture results history of cirrhosis/esophageal varices Denies melena, hematemesis, hematochezia LFTs within normal limits PT/INR ordered and pending DVT PPX: Heparin subcu Code status:full Discharge Plan: Home Plan to discharge in: Greater than 2 days - Advance Directives Does patient have a Living Will: No Does patient have a Durable POA for Healthcare: No - Code Status/Comfort Care Code Status Assessed: Yes (Full code) Critical Care: No Time Spent Managing Pts Care (In Minutes): 70
[2023-06-16 12:12] LABS: Protime INR 1.24
[2023-06-16 14:12] LABS: Potassium 3.9 mEq/L (3.5-5.1)
--- NOTE | 2023-06-16 14:50 | P.CNS ---
Chief Complaint: JAIRO, intractable vomiting, hyperglycemia History of Present Illness: 63-year-old female with history of nonalcoholic fatty liver/cirrhosis, insulin- dependent diabetes presents to the emergency department chief complaint of nausea, vomiting, diarrhea. Her symptoms started on 06/11/2023 with vomiting about 10 minutes after eating a watermelon, the following day she developed diarrhea usually about once a day, abdominal pain. She is unable to keep anything down for the past few days with frequent vomiting. She does have a history of esophageal varices. She does admit to darker stools recently as well as some dark vomit, she is concerned that she may be having some GI bleeding. She had an EGD about a month ago with banding of 4 varicies. She was evaluated in the emergency department labs are significant for leukocytosis white blood cell antibody 7 hemoglobin 10.6 sodium 125 chloride 95 bicarb 18 creatinine 3.8 glucose 599 lipase 46 UA with leuk esterase, bacteria nitrite negative. Denies any urinary symptoms. Anion gap is 12 currently, given IV fluids, IV antibiotics, insulin in ED. Baseline HGB 12, also likely very contracted at this time, there is some concern for GI bleed. Allergies No Known Drug Allergies Allergy (Verified 04/10/19 07:46) Unknown Home Medications: Lisinopril/Hydrochlorothiazide [Lisinopril-Hctz 20-12.5 mg Tab] 1 tab PO DAILY 05/08/18 Metformin HCl 1,000 mg PO BIDWM 05/08/18 Sertraline HCl 50 mg PO DAILY 05/08/18 Pantoprazole Sodium [Protonix] 40 mg PO DAILY 07/04/18 Sitagliptin Phosphate [Januvia] 50 mg PO DAILY 04/10/19 - Past Medical/Surgical History Diabetic: Yes -: hypertension -: depression -: fatty liver/cirrhosis -: diabetes insulin-dependent diabetes -: hysterectomy -: ovarian benign tumor removal -: cholecystectomy Psychosocial/ Personal History: Lives at home with family - Family History Mother Medical History: Cancer - Social History Smoking Status: Unknown if ever smoked Alcohol use: No CD- Drugs: No Caffeine use: Yes Place of Residence: Home Review of Systems 10-point ROS is otherwise unremarkable Gastrointestinal: Nausea, Vomiting, Abdominal Pain, Diarrhea, Other (dark stools, dark vomit) Physical Examination General: Alert, In no apparent distress, Oriented x3 HEENT: Atraumatic, PERRLA, Mucous membr. moist/pink Neck: Supple, No LAD Respiratory: Normal air movement Cardiovascular: Regular rate/rhythm, Normal S1 S2 Gastrointestinal: Normal bowel sounds, Tenderness (mild epigastric tenderness) Musculoskeletal: No tenderness Integumentary: No rashes Neurological: Normal speech, Normal tone, Normal affect Laboratory Data (last 24 hrs) 06/16/23 06/16/23 06/16/23 13:41 11:50 10:41 WBC Hgb Hct Plt Count PT 13.6 H Cancelled INR 1.24 Cancelled Sodium 129 L D Potassium 3.9 BUN 67 H Creatinine 3.60 H Glucose 471 H* Total Bilirubin AST ALT Alkaline Phosphatase Lipase 06/16/23 06/16/23 06/16/23 07:45 07:45 06:13 WBC 18.70 H Hgb 10.6 L Hct 32.2 L Plt Count 163 PT INR Sodium 125 L Potassium 4.4 BUN 68 H Creatinine 3.80 H Glucose 599 H* Total Bilirubin 1.0 AST 13 L ALT 20 Alkaline Phosphatase 136 H Lipase 46 Cancelled Conclusions/Impression: Assessment: Intractable N/V/D Anemia-concern for acute blood loss anemia/GI bleed JAIRO Diabetes mellitus type 2insulin-dependent with hyperglycemia Pseudohyponatremia Leukocytosis history of cirrhosis/esophageal varices Plan: Given concern for GI bleeding with history of cirrhosis/portal hypertension and recent EGD with variceal banding the recommendations for transfer to a facility with GI available. Patient was ultimately excepted to [facility] for further management. Critical Care: No Time Spent Managing Pts care (In Minutes): 50
[2023-06-16 15:44] VITALS: TEMP 98.1
[2023-06-16 15:51] VITALS: BP 118/62; O2SAT 98
== END 2023-06-16 15:10 ==
LOC: ER 05:22
DX: N10 Acute pyelonephritis (principal); N17.9 Acute kidney failure, unspecified; E11.65 Type 2 diabetes mellitus with hyperglycemia; Z79.4 Long term (current) use of insulin; D64.9 Anemia, unspecified; K74.60 Unspecified cirrhosis of liver
CPT/HCPCS: 87040 ×2; 87088; 85025; 81001; 87086; 80048; 36415; 87205 ×2; 85610; 82947 ×2; 83605; 87077 ×2; 87186 ×2; 83690; 80053; 87635; 87804 ×2; 74176; 96372; 99285; J1815 ×2; J2405; J7030 ×3; J0696

== ENCOUNTER 2024-07-27 07:52 | Day surgery (SDC) | payer OTHER, MEDICARE ==
[2024-07-27 08:13] LABS: MPV 9.9 fL (7.6-11.3); Platelets 89 thou/uL (152-406)
[2024-07-27 08:17] LABS: PT Prothrombin Time 11.7 SECONDS (9.4-12.5); PTT, Activated Partial Thromb 33.5 SECONDS (24.3-36.9); Protime INR 1.05
[2024-07-27 08:56] VITALS: BMI 33.4
[2024-07-27 09:42] VITALS: BP 90/63; TEMP 97.4; O2SAT 98
[2024-07-27 10:19] LABS: Blood Morphology Comment NOT SEEN (NOT SEEN); Platelet Estimate DECR; White Blood Cell Scan OK (OK)
--- NOTE | 2024-07-27 12:37 | RAD REPORT ---
EXAMINATION: US Abdomen Exam Limited CLINICAL HISTORY: [facility] MAIN ASCITES COMPARISON: None. TECHNIQUE: Limited abdominal grayscale sonographic images of the 4 abdominal quadrants. FINDINGS: No appreciable ascites present to warrant paracentesis at this time. IMPRESSION: No appreciable ascites.
== END 2024-07-27 09:30 | disposition home or self-care (01) ==
LOC: DS 07:52
PROVIDERS: ATTEND Internal Medicine Gastroenterology
DX: R18.8 Other ascites (principal); Z53.8 Procedure and treatment not carried out for other reasons
CPT/HCPCS: 36415; 76705; 85049; 85610; 85730

== ENCOUNTER 2025-02-27 15:12 | Inpatient (IN) | payer OTHER ==
[2025-02-27] MEDS ORDERED: ACETAMINOPHEN 500 MG TAB PO PRN (16:02)
[2025-02-27 16:40] VITALS: BMI 32.2
[2025-02-27] MEDS: ENOXAPARIN 40 MG/0.4 ML SQ SCH (17:01)
[2025-02-27] MEDS: NA CHLORIDE 0.9% 1,000 ML IV SCH (17:02)
[2025-02-27] MEDS: Meropenem 500 MG in NA CHLORIDE 0.9% 100 ML IV SCH (17:02)
[2025-02-27 19:20] LABS: Sqamous Epithelial <5 /HPF (None Seen); Urine Crystals Unidentified Few /HPF (None Seen); Urine Micro Reflex YN NO BILL MICROSCOPIC
[2025-02-27] MEDS: Mupirocin NASAL 2 APPL/1 GM TUBE NAS SCH (21:00)
[2025-02-27] MEDS: MORPHINE 2 MG/ML SYR IV PRN (21:00)
[2025-02-28] MEDS: ONDANSETRON 4 MG/2 ML VIAL IV PRN (01:39)
[2025-02-28 04:18] LABS: Absolute Lymphocytes (CBC) 1.8 K/uL (0.7-4.9); Hematocrit 29.9 % (36.0-45.0); Hemoglobin 10.3 g/dL (12.0-15.0); MCH 30.6 pg (27.0-35.0); MCHC 34.6 g/dL (32.0-36.0); MCV 88.5 fL (80-100); MPV 10.6 fL (7.6-11.3); Nucleated RBC Absolute Count 0.0 (0-0); Nucleated Red Blood Cells % 0.2 % (0-0); RBC Red Blood Cell Count 3.38 M/uL (3.86-4.86); White Blood Count 6.10 thou/uL (4.3-10.9)
[2025-02-28 04:21] LABS: PT Prothrombin Time 13.9 SECONDS (10-13.0); PTT, Activated Partial Thromb 33.4 SECONDS (27.2-37.4); Protime INR 1.24
[2025-02-28 04:29] LABS: ALT/SGPT 32.0 U/L (13-56); AST/SGOT 38.0 U/L (15-37); Albumin 3.0 g/dL (3.4-5.0); Albumin/Globulin Ratio 0.9 (1.1-1.8); Alkaline Phosphatase 67.0 U/L (45-117); Anion Gap 8.5 mEq/L (5.0-15.0); BUN Blood Urea Nitrogen 22.0 mg/dL (7-18); Globulin 3.3 g/dL (2.3-3.5); Glucose Level 69.0 mg/dL (74-106); Potassium 3.5 mEq/L (3.5-5.1)
[2025-02-28 04:51] LABS: Blood Morphology Comment NOT SEEN (NOT SEEN); White Blood Cell Scan OK (OK)
--- NOTE | 2025-02-28 14:45 | P.CNS ---
Date of Consult: 02/28/25 Reason for Consult: JAIRO Chief Complaint: UTI Allergies No Known Drug Allergies Allergy (Verified 07/27/24 09:03) Unknown Home Medications: Amlodipine [Norvasc*] 5 mg PO DAILY 07/27/24 Insulin Degludec [Tresiba Flextouch U-200] 61 units SQ DAILY 07/27/24 carvediloL [Coreg*] 25 mg PO BID 07/27/24 - Past Medical/Surgical History Diabetic: Yes -: hypertension -: depression -: fatty liver/cirrhosis -: diabetes insulin-dependent diabetes -: uti -: hysterectomy -: ovarian benign tumor removal -: cholecystectomy Psychosocial/ Personal History: Lives at home with family - Family History Mother Medical History: Cancer - Social History Smoking Status: Unknown if ever smoked Alcohol use: No CD- Drugs: No Caffeine use: Yes Place of Residence: Home Physical Examination Temp Pulse Resp BP Pulse Ox 97.9 F 66 16 135/65 96 02/28/25 12:00 02/28/25 12:00 02/28/25 12:00 02/28/25 12:00 02/28/25 12:00 Laboratory Data (last 24 hrs) 02/28/25 02/28/25 02/28/25 04:00 04:00 04:00 WBC 6.10 Hgb 10.3 L Hct 29.9 L Plt Count 72 L PT 13.9 H INR 1.24 APTT 33.4 Sodium 141 Potassium 3.5 BUN 22 H Creatinine 1.19 H Glucose 69 L Total Bilirubin 0.6 AST 38 H ALT 32 Alkaline Phosphatase 67
[2025-02-28] MEDS: Meropenem 1,000 MG in NA CHLORIDE 0.9% 100 ML IV SCH (17:39)
--- NOTE | 2025-02-28 17:45 | RAD REPORT ---
EXAMINATION: CT Abdomen Pelvis W Contrast CLINICAL INDICATION: Female, 65 years old. pyelonephritis TECHNIQUE: CT abdomen and pelvis was performed, after the administration of IV contrast, as per [facility] protocol. Axial, sagittal and coronal reconstructions were obtained. One or more of the following dose reduction techniques were used: Automated exposure control, adjustment of the mA and k V according to patient size, and iterative reconstruction. Unless otherwise specified, incidental findings do not require dedicated imaging follow-up. COMPARISON: 05/08/2018 and 06/16/2023 CT abdomen and pelvis FINDINGS: LOWER CHEST: The visualized lung bases are clear. LIVER: Enlarged with nodular contour and asymmetric left lobe and caudate lobe hypertrophy suggesting cirrhosis. No suspicious focal lesion on this single phase exam. Subocclusive proximal portal vein thrombus occupying approximately 50% of the lumen. Extensive portosystemic shunting and varicosities along the lower esophagus, probably stable since 2022, although exact comparison is limited given noncontrast technique utilized on the prior exam. BILIARY SYSTEM: Status post cholecystectomy. SPLEEN: Splenomegaly 13cm . No focal lesion. PANCREAS: No mass, ductal dilation, or narayan-pancreatic fluid. ADRENALS: Normal; no mass. KIDNEYS: Normal size and contour. No hydronephrosis. URINARY BLADDER: Unremarkable. GASTROINTESTINAL TRACT: No evidence of free air, significant intra-abdominal free fluid, bowel obstru ction or abscess. APPENDIX: Normal appendix. LYMPH NODES: No lymphadenopathy. MUSCULOSKELETAL: No acute or suspicious osseous abnormality. ADDITIONAL FINDINGS: Midline supraumbilical ventral hernia containing fat. Soft tissue density 1.5 cm focus along the right lateral anterior abdominal wall, indeterminate, and could represent a small fibrous lesion or seroma. 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 Morphologic changes of liver cirrhosis. Extensive portosystemic shunting with pronounced varicosities along the distal esophagus, and splenomegaly, suggesting portal hypertension. THIS REPORT CONTAINS FINDINGS THAT MAY BE CRITICAL TO PATIENT CARE. The findings were verbally commun icated via telephone to Werner Meraz MD on 02/28/2025 5:28 PM.
--- NOTE | 2025-02-28 18:47 | CON ---
Reason For Consultation: Elevated BUN and creatinine, UTI. 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 The patient came to the office yesterday because of UTI. The patient had 3 episodes of UTI wit h the ESBL. The patient has history of bladder prolapse, status post bladder lift. The patient khalida ng evaluated by VICE PRESIDENT OF NURSING, urologist, and started gentamicin local antibiotic. The patient had full Invanz treatment for 15 days, the last time, the patient came again with UTI, was symptomatic. Past Medical History: Include: 1. Diabetes, complicated with neuropathy, no retinopathy. 2. Hypertension. 3. Hyperlipidemia. 4. Chronic kidney disease, normal-sized kidneys 10.7/12.4, minimal proteinuria secondary to diabetes nephropathy, hypertension nephrosclerosis. 5. Recurrent UTI. Allergies: NO KNOWN DRUGS ALLERGY. Social History: Denied smoking. Denied drinking. Denied drugs abuse. Family History: Positive for hypertension. Review of Systems: Head and Neck: No red eye. No ear pain. GI: No nausea. No vomiting. : Has polyuria. Has dysuria. VICE PRESIDENT OF NURSING: No vaginal discharge. Respiratory: No shortness of breath. Cardiovascular: No chest pain. Endocrine: No polydipsia. Skin: No rash. Neuro: Has neuropathy. Musculoskeletal: No joint pain. Physical Examination: Vital Signs: Blood pressure 135/65, pulse of 66, afebrile. Chest: Clear to auscultation. Heart: S1, S2 regular. Abdomen: Soft, nontender. Extremities: No edema. Neurologic: Alert. No focality. Laboratory Data: WBC 6.1, hemoglobin 10.3, sodium 141, potassium 3.5, bicarb 25, BUN 22, creatinine 1.1, GFR of 50, calcium 8.1, albumin of 3, corrected calcium is 9. Urinalysis positive for infection , wbc more than 50. Urine culture, ESBL. Current Medications: The patient on include meropenem 500 t.i.d. Lovenox, mupirocin, IV fluid. Assessment And Plan: 1. Acute kidney injury secondary to prerenal/toxic acute tubular necrosis, on the recovery. We will continue hydration. I agree with current hydration. 2. Chronic kidney disease with acute kidney injury, as above. 3. Hypertension, controlled, optimal. Continue current treatment. 4. Urinary tract infection, recurrent with ESBL. The patient is status post local treatment, failed outpatient treatment even with Invanz. I will consult ID. Given the relapsing urinary tract infecti on, we are going to go ahead and get CT abdomen and pelvis with contrast to evaluate for any foci and we will follow up. 5. Hyponatremia, depletional. Continue on hydration. Thank you, Dr. Meraz, for allowing us to participate in the care of your patient. Time spent examinin g the patient [id number], reviewing data, lab and radiology, placing order, discussing the case with the patient, discussing the case with the body team member including hospitalist and nursing staff mo re than 75 minutes. KRAIG Voice ID: [id number] Report ID: [id number]
--- NOTE | 2025-02-28 22:22 | CON ---
History Of Present Illness: This is a 65-year-old female with significant past medical history of re current urinary tract infection, recent cultures showing E coli, ESBL, which was treated with ertapen em for 2 weeks. The patient's initial symptoms started in October of 2024 with blood in urine and righ t-sided back ache, was found to have kidney stones. Later on patient saw paraprofessional aide for prolapsed bladder, which was lifted. She has significant past medical history of diabetes mellitus, esophageal varices, liver disease, low platelets, kidney stones, hypertension, seen by her kidney doctor yester day after 2 weeks of antibiotic. The patient was sent to the hospital for further management of urin cruz tract infection secondary to ESBL E coli. Past Medical History: As per HPI. Social History: Nonsmoker, nondrinker. Family History: Noncontributory. Medications: Meropenem. See MARs for other medications. Allergies: NO KNOWN DRUG ALLERGIES. Review of Systems: A 10-point review was performed. Physical Examination: General: This is a 65-year-old female, lying in bed, not in any acute cardiopulmonary distress. Vital Signs: Temperature 98, pulse 70, respirations 16, blood pressure 145/69. HEENT: Unremarkable. Neck: Supple. Lungs: Basal crackles. Heart: S1, S2. Regular. Abdomen: Soft, nontender. Bowel sounds present. Extremity: Trace edema. Laboratory Data: Shows WBC 6.1, hemoglobin 10.3, platelets are 72. BUN of 22, creatinine 1.1, album in is 3. Assessment/plan: 1. Multidrug resistance extended-spectrum beta-lactamase Escherichia coli urosepsis treated for 2 wee ks with Invanz and in past she also received gentamicin irrigation of her bladder. Patient coming in for failure of outpatient antibiotic treatment. I agree with meropenem 1 g q.8 hours. 2. History of diabetes mellitus. 3. History of liver disease and thrombocytopenia. 4. History of kidney stones, most likely the reason for hematuria versus infectious process. 5. Anemia of chronic disease. 6. Moderate protein-calorie malnourishment. Thank you Dr. Meraz for consult. Consider treating the patient for a total of 2 weeks and continue ou tpatient therapy after 2 weeks of meropenem with Macrobid pending culture results which might negativ e secondary to IV antibiotic therapy as outpatient. We will follow the patient closely. NF/MODByron Voice ID: [id number] Report ID: [id number]
[2025-03-01 01:22] VITALS: O2SAT 94
--- NOTE | 2025-03-01 01:56 | P.HP ---
Certification for Inpatient Patient admitted to: Inpatient With expected LOS: >2 Midnights Patient will require the following post-hospital care: None Practitioner: I am a practitioner with admitting privileges, knowledge of patient current condition, hospital course, and medical plan of care. Services: Services provided to patient in accordance with Admission requirements found in Title 42 Section 412.3 of the Code of Federal Regulations Patient History Date of Service: 02/27/25 Reason for admission: MDR UTI History of Present Illness: Patient is a 65-year-old female with a history of recurrent urinary tract infection. Patient has been treated as an outpatient with multiple antibiotics including Invanz. Unfortunately patient's infection has not improved. Patient presented to the emergency room as a direct admission from nephrology office because of recurrent urinary tract infection. Patient was started on IV antibiotic therapy. At this time, patient's cultures are pending. Patient will be admitted for inpatient hospitalization. Otherwise, patient denies any new complaints. Patient with multiple medical issues including hypertension, diabetes, and cirrhosis. Continue with current plan of care at this time. Allergies No Known Drug Allergies Allergy (Verified 07/27/24 09:03) Unknown Home Medications: Amlodipine [Norvasc*] 5 mg PO DAILY 07/27/24 Insulin Degludec [Tresiba Flextouch U-200] 61 units SQ DAILY 07/27/24 carvediloL [Coreg*] 25 mg PO BID 07/27/24 - Past Medical/Surgical History Diabetic: Yes -: hypertension -: depression -: fatty liver/cirrhosis -: diabetes insulin-dependent diabetes -: MDR UTI -: hysterectomy -: ovarian benign tumor removal -: cholecystectomy Psychosocial/ Personal History: Lives at home with family - Family History Mother Medical History: Cancer - Social History Smoking Status: Former smoker Alcohol use: No CD- Drugs: No Caffeine use: Yes Place of Residence: Home Review of Systems 10-point ROS is otherwise unremarkable Physical Examination - Vital Signs Temperature: 98.8 F Blood Pressure: 159/70 Pulse: 74 Respirations: 20 Pulse Ox (%): 94 - Physical Exam General: Alert, In no apparent distress, Oriented x3 HEENT: Atraumatic, PERRLA, Mucous membr. moist/pink, EOMI, Sclerae nonicteric Neck: Supple, 2+ carotid pulse no bruit, No LAD, Without JVD or thyroid abnormality Respiratory: Clear to auscultation bilaterally, Normal air movement Cardiovascular: Regular rate/rhythm, Normal S1 S2, Systolic murmur Gastrointestinal: Normal bowel sounds, Soft and benign, Non-distended, Tenderness (flank) Musculoskeletal: No clubbing, No swelling, No tenderness Integumentary: No rashes Neurological: Normal speech, Normal strength at 5/5 x4 extr, Normal tone, Sensation intact, Cranial nerves 3-12 intact, Normal affect Lymphatics: No axilla or inguinal lymphadenopathy - Studies Laboratory Data (last 24 hrs) 02/28/25 02/28/25 02/28/25 04:00 04:00 04:00 WBC 6.10 Hgb 10.3 L Hct 29.9 L Plt Count 72 L PT 13.9 H INR 1.24 APTT 33.4 Sodium 141 Potassium 3.5 BUN 22 H Creatinine 1.19 H Glucose 69 L Total Bilirubin 0.6 AST 38 H ALT 32 Alkaline Phosphatase 67 Assessment & Plan - Problems (Diagnosis) (1) UTI (urinary tract infection) Onset Date: 05/11/18 Current Visit: No Status: Acute Qualifiers: Urinary tract infection type: acute cystitis Hematuria presence: without hematuria Qualified Code(s): N30.00 - Acute cystitis without hematuria (2) Esophageal varices Onset Date: 05/09/18 Current Visit: No Status: Acute Qualifiers: Esophageal varices bleeding: without bleeding (3) Diabetes mellitus type 2 in obese Onset Date: 05/09/18 Current Visit: No Status: Chronic (4) Hypertension Onset Date: 05/09/18 Current Visit: No Status: Chronic Qualifiers: Hypertension type: essential hypertension Qualified Code(s): I10 - Essential (primary) hypertension (5) Cirrhosis Current Visit: Yes Status: Acute Qualifiers: Hepatic cirrhosis type: unspecified biliary cirrhosis Qualified Code(s): K74.5 - Biliary cirrhosis, unspecified (6) Fatty liver Onset Date: 05/09/18 Current Visit: No Status: Chronic (7) Depression Current Visit: Yes Status: Acute - Plan Plan: 1. Multidrug-resistant urinary tract infection; continue with IV meropenem. Repeat cultures pending. 2. History of liver cirrhosis with esophageal varices; continue with PPI. Continue monitoring liver function testing 3. History of depression; resume antidepressants 4. History of type 2 diabetes; glucose monitoring and sliding scale insulin and resume long-acting insulin 5. History of hypertension; resume antihypertensives. 6. GI DVT prophylaxis Discharge Plan: Home Plan to discharge in: Greater than 2 days - Advance Directives Does patient have a Living Will: Yes Does patient have a Durable POA for Healthcare: No - Code Status/Comfort Care Code Status Assessed: Yes Code Status: Full Code Critical Care: No Time Spent Managing PTS Care (In Minutes): 45
--- NOTE | 2025-03-01 02:02 | P.PN ---
Date of Service: 02/28/25 Subjective Patient is clinically doing well. Patient denies any new complaints. Nephrology wanted to get CT imaging for further evaluation. CT imaging with partial portal vein thrombosis with liver cirrhosis. Findings of esophageal varices once again noted. No evidence of pyelonephritis or urinary tract infection on imaging studies. Physical Examination - Vital Signs Reviewed - Physical Exam General: Alert, In no apparent distress, Oriented x3 Respiratory: Clear to auscultation bilaterally, Normal air movement Cardiovascular: Regular rate/rhythm, Normal S1 S2, Systolic murmur Gastrointestinal: Normal bowel sounds, Soft and benign, Non-distended, Tenderness (flank) Musculoskeletal: No clubbing, No swelling, No tenderness Integumentary: No rashes Neurological: No focal deficits Assessment & Plan - Problems (Diagnosis) (1) UTI (urinary tract infection) Onset Date: 05/11/18 Current Visit: No Status: Acute Qualifiers: Urinary tract infection type: acute cystitis Hematuria presence: without hematuria Qualified Code(s): N30.00 - Acute cystitis without hematuria (2) Esophageal varices Onset Date: 05/09/18 Current Visit: No Status: Acute Qualifiers: Esophageal varices bleeding: without bleeding (3) Diabetes mellitus type 2 in obese Onset Date: 05/09/18 Current Visit: No Status: Chronic (4) Hypertension Onset Date: 05/09/18 Current Visit: No Status: Chronic Qualifiers: Hypertension type: essential hypertension Qualified Code(s): I10 - Ess ential (primary) hypertension (5) 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 Multidrug-resistant urinary tract infection; continue with IV meropenem. Repeat cultures pending. 2. History of liver cirrhosis with esophageal varices; continue with PPI. Continue monitoring liver function testing; continue with anticoagulants. 3. History of depression; resume antidepressants 4. History of type 2 diabetes; glucose monitoring and sliding scale insulin and resume long-acting insulin 5. History of hypertension; resume antihypertensives. 6. GI DVT prophylaxis Discharge Plan: Home Plan to discharge in: Greater than 2 days - Advance Directives Does patient have a Living Will: Yes Does patient have a Durable POA for Healthcare: No - Code Status/Comfort Care Code Status Assessed: Yes Code Status: Full Code Critical Care: No Time Spent Managing PTS Care (In Minutes): 30
[2025-03-01 05:17] LABS: Albumin 2.9 g/dL (3.4-5.0); Anion Gap 8.7 mEq/L (5.0-15.0); BUN Blood Urea Nitrogen 17.0 mg/dL (7-18); Glucose Level 101.0 mg/dL (74-106); Potassium 3.7 mEq/L (3.5-5.1)
[2025-03-01] MEDS: AMLODIPINE 5 MG TAB PO SCH (08:04)
[2025-03-01] MEDS: HOME MED 1 EA UNK (Insulin Degludec [Tresiba Flextouch U-200] 200 UNIT/ML Insuln.Pen) SQ SCH (08:05)
--- NOTE | 2025-03-01 09:07 | P.PN ---
Date of Service: 03/01/25 Subjective: Doing fine. Feels ~same as yesterday doesn't feel worse Tolerating abx without issues afebrile. Denies chills Physical Exam: Gen: Alert, NAD, Orientedx3 CV: Regular rate and rhythm, no edema Pulm: Nonlabored respirations on room air, clear bilaterally Abdomen: Soft, flank tenderness Neuro: Normal strength, normal affect Problem List: Recurrent UTI Failed outpatient therapy on Invanz Hx MDR UTI IDDM2 Cirrhosis / Esophageal varices Hypertension Depression Recurrent UTI Failed outpatient therapy on Invanz Hx MDR UTI Presents as direct admit from Nephrology office for UTI. Has a history of recu rrent MDR UTIs. Has been previously treated with multiple antibiotics including Invanz. Recent Urine Culture showed E. coli ESBL treated with Invanz x2 weeks. Went to Nephrology office after completing abx course but states no improvement after abx. CT abd/pelvis (02/28): Subocclusive thrombus of proximal portal vein. Liver Cirrhosis. Extensive portosystemic shunting with pronounced varicosities along the distal esophagus, and splenomegaly, suggesting portal hypertension. Continue IV merrem q8h (02/28-) ID/Nephrology consulted Midline placed for IV antibiotics. IDDM2 accu-cheks, SSI confirm home insulin regimen Cirrhosis / Esophageal varices Hypertension Depression confirm home meds, restart as appropriate resume home coreg, amlodipine Start PPI VTE: Lovenox Code: Full Dispo: Home Pending culture, IV abx
--- NOTE | 2025-03-01 14:28 | P.PN ---
Date of Service: 03/01/25 subjective: Pt seen walking in room Tolerating abx without issues denied fever/chill. states has intermittent pelvic pain and nausea. does have prn zofran for nausea. objective: Temp Pulse Resp BP Pulse Ox 97.5 F 72 22 H 165/75 H 95 03/01/25 12:00 03/01/25 12:00 03/01/25 12:00 03/01/25 12:00 03/01/25 12:00 Physical Exam: Gen: Alert, NAD, Orientedx3 CV: Regular rate and rhythm, no edema Pulm: CTA Abdomen:mild discomfort to pelvic area, BS present, ND Neuro: respond approximately to questions Labs: wbc 6.1, Hgb 10.3, plt count 72, BUN 17, CR 1.03 ASSESSment and Planning 1. Multidrug resistance extended-spectrum beta-lactamase Escherichia coli urosepsis 2. History of diabetes mellitus. 3. History of liver disease and thrombocytopenia. 4. History of kidney stones, most likely the reason for hematuria versus infectious process. 5. Anemia of chronic disease. 6. Moderate protein-calorie malnourishment continue IV merrem for 2 weeks and then macrobid PO afterward will continue to see patient as needed. monitor wbc and fever trend case discussed and in agreement with Dr foster
--- NOTE | 2025-03-01 19:38 | PN ---
Date of Progress Note: 03/01/2025 Subjective: No overnight event. Creatinine down to 1. We will discontinue IV fluid. Objective: Vital Signs: Temperature 97.5, pulse rate 72, blood pressure 165/75. General: On physical examination, awake and alert, not in any distress. Neck: Supple. No elevated JVD. Heart: Regular rate and rhythm. Normal S1, S2. Chest: Clear to auscultation bilaterally. No rales or wheezes. Abdomen: Soft, nontender. Extremities: No edema. Laboratory Data: White count 6.1, hemoglobin 10.3, sodium 142, potassium 3.7, BUN 17, creatinine 1.3 . Assessment And Plan: 1. Diabetic chronic kidney disease, stage 2. Creatinine is stable. We will discontinue IV fluid. R enally dose medication. 2. Urinary tract infection, ESBL. Continue Merrem. 3. Hypertension. Blood pressure elevated. We will discontinue normal saline. 4. Fatty liver with cirrhosis, compensated. Thanks for allowing me to participate in patient's care. Total time spent 55 minutes including docum entation, reviewing labs, and placing orders. JOSE MANUEL/LORI Voice ID: [id number] Report ID: [id number]
[2025-03-02 04:56] LABS: Absolute Lymphocytes (CBC) 1.2 K/uL (0.7-4.9); Hematocrit 28.5 % (36.0-45.0); Hemoglobin 9.7 g/dL (12.0-15.0); MCH 30.1 pg (27.0-35.0); MCHC 34.0 g/dL (32.0-36.0); MCV 88.5 fL (80-100); MPV 10.6 fL (7.6-11.3); Nucleated RBC Absolute Count 0.0 (0-0); Nucleated Red Blood Cells % 0.0 % (0-0); RBC Red Blood Cell Count 3.22 M/uL (3.86-4.86); White Blood Count 4.20 thou/uL (4.3-10.9)
[2025-03-02 05:09] LABS: Albumin 2.8 g/dL (3.4-5.0); Anion Gap 6.7 mEq/L (5.0-15.0); BUN Blood Urea Nitrogen 18.0 mg/dL (7-18); Glucose Level 149.0 mg/dL (74-106); Potassium 3.7 mEq/L (3.5-5.1)
[2025-03-02] MEDS: HOME MED 1 EA UNK (Insulin Degludec [Tresiba Flextouch U-200] 200 UNIT/ML Insuln.Pen) SQ SCH (08:20)
--- NOTE | 2025-03-02 14:41 | P.PN ---
Date of Service: 03/02/25 Subjective: No acute events overnight denies fevers and chills Sleeping on arrival but awakens easily Physical Exam: Gen: Alert, NAD, Orientedx3 CV: Regular rate and rhythm, no edema Pulm: Nonlabored respirations on room air, clear bilaterally Abdomen: Soft, flank tenderness Neuro: Normal strength, normal affect Problem List: Recurrent UTI Failed outpatient therapy on Invanz Hx MDR UTI IDDM2 Cirrhosis / Esophageal varices Hypertension Depression Recurrent UTI Failed outpatient therapy on Invanz Hx MDR UTI Presents as direct admit from Nephrology office for UTI. Has a history of recurrent MDR UTIs. Has been previously treated with multiple antibiotics including Invanz. Recent Urine Culture showed E. coli ESBL treated with Invanz x2 weeks. Went to Nephrology office after completing abx course but states no improvement after abx. CT abd/pelvis (02/28): Subocclusive thrombus of proximal portal vein. Liver Cirrhosis. Extensive portosystemic shunting with pronounced varicosities along the distal esophagus, and splenomegaly, suggesting portal hypertension. Continue IV merrem q8h (02/28-) ID/Nephrology consulted Midline placed for IV antibiotics. IDDM2 accu-cheks, SSI confirm home insulin regimen Cirrhosis / Esophageal varices Hypertension Depression confirm home meds, restart as appropriate resume home coreg, amlodipine Start PPI VTE: Lovenox Code: Full Dispo: Home Pending culture, IV abx
[2025-03-03 05:33] LABS: Absolute Lymphocytes (CBC) 1.5 K/uL (0.7-4.9); Hematocrit 30.6 % (36.0-45.0); Hemoglobin 10.5 g/dL (12.0-15.0); MCH 30.3 pg (27.0-35.0); MCHC 34.3 g/dL (32.0-36.0); MCV 88.3 fL (80-100); MPV 10.1 fL (7.6-11.3); Nucleated RBC Absolute Count 0.0 (0-0); Nucleated Red Blood Cells % 0.0 % (0-0); RBC Red Blood Cell Count 3.46 M/uL (3.86-4.86); White Blood Count 4.80 thou/uL (4.3-10.9)
[2025-03-03 05:49] LABS: Albumin 3.0 g/dL (3.4-5.0); Anion Gap 7.3 mEq/L (5.0-15.0); BUN Blood Urea Nitrogen 18.0 mg/dL (7-18); Glucose Level 127.0 mg/dL (74-106); Potassium 4.3 mEq/L (3.5-5.1)
--- NOTE | 2025-03-03 11:28 | P.PN ---
Date of Service: 03/03/25 Subjective: Doing well Nursing staff at bedside and getting ready to take shower No acute events overnight Vitals remained stable Physical Exam: Gen: Alert, NAD, Orientedx3 CV: Regular rate and rhythm, no edema Pulm: Nonlabored respirations on room air, clear bilaterally Abdomen: Soft, flank tenderness Neuro: Normal strength, normal affect Problem List: Recurrent UTI Failed outpatient therapy on Invanz Subocclusive portal vein thrombus Hx MDR UTI IDDM2 Cirrhosis / Esophageal varices Hypertension Depression Recurrent UTI Failed outpatient therapy on Invanz Hx MDR UTI Presents as direct admit from Nephrology office for UTI. Has a history of recurrent MDR UTIs. Has been previously treated with multiple antibiotics including Invanz. Recent Urine Culture showed E. coli ESBL treated with Invanz x2 weeks. Went to Nephrology office after completing abx course but states no improvement after abx. Continue IV merrem q8h (02/28-) ID/Nephrology consulted Midline placed for IV antibiotics. IDDM2 accu-cheks, SSI confirm home insulin regimen Cirrhosis / Esophageal varices Hypertension Depression CT abd/pelvis (02/28): Subocclusive thrombus of proximal portal vein. Liver Cirrhosis. Extensive portosystemic shunting with pronounced varicosities along the distal esophagus, and splenomegaly, suggesting portal hypertension. confirm home meds, restart as appropriate resume home coreg, amlodipine Start PPI VTE: Lovenox Code: Full Dispo: Home Pending culture, IV abx
[2025-03-04 04:47] LABS: Absolute Lymphocytes (CBC) 1.2 K/uL (0.7-4.9); Hematocrit 29.8 % (36.0-45.0); Hemoglobin 10.2 g/dL (12.0-15.0); MCH 30.4 pg (27.0-35.0); MCHC 34.3 g/dL (32.0-36.0); MCV 88.8 fL (80-100); MPV 10.4 fL (7.6-11.3); Nucleated RBC Absolute Count 0.0 (0-0); Nucleated Red Blood Cells % 0.1 % (0-0); RBC Red Blood Cell Count 3.35 M/uL (3.86-4.86); White Blood Count 4.40 thou/uL (4.3-10.9)
[2025-03-04 04:59] LABS: Albumin 2.9 g/dL (3.4-5.0); Anion Gap 7.7 mEq/L (5.0-15.0); BUN Blood Urea Nitrogen 21.0 mg/dL (7-18); Glucose Level 140.0 mg/dL (74-106); Potassium 3.7 mEq/L (3.5-5.1)
--- NOTE | 2025-03-04 07:21 | P.PN ---
Date of Service: 03/04/25 Subjective: Doing well Nursing staff at bedside and getting ready to take shower No acute events overnight Vitals remained stable Physical Exam: Gen: Alert, NAD, Orientedx3 CV: Regular rate and rhythm, no edema Pulm: Nonlabored respirations on room air, clear bilaterally Abdomen: Soft, flank tenderness Neuro: Normal strength, normal affect Problem List: Recurrent UTI Failed outpatient therapy on Invanz Subocclusive portal vein thrombus Hx MDR UTI IDDM2 Cirrhosis / Esophageal varices Hypertension Depression Recurrent UTI Failed outpatient therapy on Invanz Hx MDR UTI Presents as direct admit from Nephrology office for UTI. Has a history of recurrent MDR UTIs. Has been previously treated with multiple antibiotics including Invanz. Recent Urine Culture showed E. coli ESBL treated with Invanz x2 weeks. Went to Nephrology office after completing abx course but states no improvement after abx. Continue IV merrem q8h (02/28-) ID/Nephrology consulted Midline placed for IV antibiotics. Social work consulted for IV antibiotic until 03/15. Then Macrobid for 7 days following that. IDDM2 accu-cheks, SSI confirm home insulin regimen Compensated cirrhosis / Esophageal varices Subocclusive portal vein thrombosis CT abd/pelvis (02/28): Subocclusive thrombus of proximal portal vein. Liver Cirrhosis. Extensive portosystemic shunting with pronounced varicosities along the distal esophagus, and splenomegaly, suggesting portal hypertension. confirm home meds, restart as appropriate Continue to monitor and will need follow-up CT in 3 months. Less than 50% obstructed flow currently been stable since 2022 Follow-up with GI for potential anticoagulation Hypertension Depression resume home coreg, amlodipine Start PPI VTE: Lovenox Code: Full Dispo: Home Pending culture, IV abx
--- NOTE | 2025-03-04 11:59 | P.PN ---
Date of Service: 03/04/25 subjective: Pt seen walking in room Tolerating abx without issues denied fever/chill. objective: Temp Pulse Resp BP Pulse Ox 97.9 F 74 18 136/66 93 03/04/25 11:42 03/04/25 11:42 03/04/25 11:42 03/04/25 11:42 03/04/25 11:42 Physical Exam: Gen: Alert, NAD, Orientedx3 CV: Regular rate and rhythm, no edema Pulm: CTA Abdomen:mild discomfort to pelvic area, BS present, ND Neuro: respond approximately to questions Labs: wbc 4.4, Hgb 10.2, plt count 58, BUN 21, CR 0.94 ASSESSment and Planning 1. Multidrug resistance extended-spectrum beta-lactamase Escherichia coli urosepsis 2. History of diabetes mellitus. 3. History of liver disease and thrombocytopenia. 4. History of kidney stones, most likely the reason for hematuria versus infectious process. 5. Anemia of chronic disease. 6. Moderate protein-calorie malnourishment continue IV merrem for 2 weeks and then macrobid PO afterward will continue to see patient as needed. monitor wbc and fever trend case discussed and in agreement with Dr foster
[2025-03-04 15:50] VITALS: BP 143/71; TEMP 98.1
--- NOTE | 2025-03-04 16:27 | P.DS ---
Admission Date: 02/27/25 Discharge Date: 03/04/25 Disposition: DC HOME/HOME HEALTH CARE Discharge Condition: GOOD Reason for Admission: MDR UTI Brief History of Present Illness: Patient is a 65-year-old female with a history of recurrent urinary tract infection. Patient has been treated as an outpatient with multiple antibiotics including Invanz. Unfortunately patient's infection has not improved. Patient presented to the emergency room as a direct admission from nephrology office because of recurrent urinary tract infection. Patient was started on IV antibiotic therapy. At this time, patient's cultures are pending. Patient will be admitted for inpatient hospitalization. Otherwise, patient denies any new complaints. Patient with multiple medical issues including hypertension, diabetes, and cirrhosis. Continue with current plan of care at this time. On admission patient was started on IV Merrem. Infectious disease was consulted. She will continue IV Merrem until March 15. At which point she was on Macrobid for 5 days. Remainder of her medical problems are chronic and stable. She is medically optimized for discharge Hospital Course: Physical Exam: Gen: Alert, NAD, Orientedx3 CV: Regular rate and rhythm, no edema Pulm: Nonlabored respirations on room air, clear bilaterally Abdomen: Soft, flank tenderness Neuro: Normal strength, normal affect Problem List: Recurrent UTI Failed outpatient therapy on Invanz Subocclusive portal vein thrombus Hx MDR UTI IDDM2 Cirrhosis / Esophageal varices Hypertension Depression Recurrent UTI Failed outpatient therapy on Invanz Hx MDR UTI Presents as direct admit from Nephrology office for UTI. Has a history of recurrent MDR UTIs. Has been previously treated with multiple antibiotics including Invanz. Recent Urine Culture showed E. coli ESBL treated with Invanz x2 weeks. Went to Nephrology office after completing abx course but states no improvement after abx. Continue IV merrem q8h (02/28-) ID/Nephrology consulted Midline placed for IV antibiotics. Social work consulted for IV antibiotic until 03/15. Then Macrobid for 7 days following that. IDDM2 accu-cheks, SSI confirm home insulin regimen Compensated cirrhosis / Esophageal varices Subocclusive portal vein thrombosis CT abd/pelvis (02/28): Subocclusive thrombus of proximal portal vein. Liver Cirrhosis. Extensive portosystemic shunting with pronounced varicosities along the distal esophagus, and splenomegaly, suggesting portal hypertension. confirm home meds, restart as appropriate Continue to monitor and will need follow-up CT in 3 months. Less than 50% obstructed flow currently been stable since 2022 Follow-up with GI for potential anticoagulation Hypertension Depression resume home coreg, amlodipine Start PPI VTE: Lovenox Code: Full Dispo: Home Pending culture, IV abx Vital Signs/Physical Exam: Temp Pulse Resp BP Pulse Ox 98.1 F 72 18 143/71 H 96 03/04/25 15:48 03/04/25 15:48 03/04/25 15:48 03/04/25 15:48 03/04/25 15:48 Laboratory Data at Discharge: WBC 4.40 thou/uL (4.3-10.9) 03/04/25 04:27 Hgb 10.2 g/dL (12.0-15.0) L 03/04/25 04:27 Hct 29.8 % (36.0-45.0) L 03/04/25 04:27 Plt Count 58 thou/uL (152-406) L 03/04/25 04:27 PT 13.9 SECONDS (10-13.0) H 02/28/25 04:00 INR 1.24 02/28/25 04:00 APTT 33.4 SECONDS (27.2-37.4) 02/28/25 04:00 Sodium 140 mEq/L (136-145) 03/04/25 04:27 Potassium 3.7 mEq/L (3.5-5.1) D 03/04/25 04:27 BUN 21 mg/dL (7-18) H 03/04/25 04:27 Creatinine 0.94 mg/dL (0.55-1.02) 03/04/25 04:27 Glucose 140 mg/dL (74-106) H 03/04/25 04:27 Phosphorus 3.4 mg/dL (2.5-4.9) 03/04/25 04:27 Total Bilirubin 0.6 mg/dL (0.2-1.0) 02/28/25 04:00 AST 38 U/L (15-37) H 02/28/25 04:00 ALT 32 U/L (13-56) 02/28/25 04:00 Alkaline Phosphatase 67 U/L (45-117) 02/28/25 04:00 Home Medications: Amlodipine [Norvasc*] 5 mg PO DAILY 07/27/24 Insulin Degludec [Tresiba Flextouch U-200] 61 units SQ DAILY 07/27/24 carvediloL [Coreg*] 25 mg PO BID 07/27/24 Followup: Frances Duran NP [Primary Care Provider] -
[2025-03-04] MEDS: Meropenem 1,000 MG in NA CHLORIDE 0.9% 100 ML IV SCH (18:03)
--- NOTE | 2025-03-05 02:29 | PN ---
Date of Progress Note: 03/04/2025 Subjective: The patient denies complaints today. Physical Examination: Lungs: Clear to auscultation bilaterally. Heart: S1, S2. Abdomen: Soft. Extremities: No edema. Impression And Plan: 1. 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 Continue to monitor electrolytes. IV fluids stopp ed. The patient developed acute kidney injury. Renal function has stabilized. 2. Urinary tract infection, extended-spectrum beta-lactamase. Continue meropenem. 3. Hypertension. Blood pressure elevated. IV fluids were stopped. Monitor blood pressure closely. VIOLETA/LORI Voice ID: [id number] Report ID: [id number]
== END 2025-03-04 18:56 | disposition home health service (06) | DRG 689 ==
LOC: 2ND 15:12
PROVIDERS: ADMIT Internal Medicine; ATTEND Family Medicine
PROC: 02HV33Z Insertion of Infusion Device into Superior Vena Cava, Percutaneous Approach (ICD-10-PCS; principal; 2025-02-27)
DX: N30.00 Acute cystitis without hematuria (principal); I81 Portal vein thrombosis; N17.0 Acute kidney failure with tubular necrosis; Z16.12 Extended spectrum beta lactamase (ESBL) resistance; E87.1 Hypo-osmolality and hyponatremia; E44.0 Moderate protein-calorie malnutrition; I85.00 Esophageal varices without bleeding; Z16.24 Resistance to multiple antibiotics; K74.5 Biliary cirrhosis, unspecified; E78.5 Hyperlipidemia, unspecified; F32.A Depression, unspecified; K76.0 Fatty (change of) liver, not elsewhere classified; I12.9 Hypertensive chronic kidney disease with stage 1 through stage 4 chronic kidney disease, or unspecified chronic kidney disease; N18.30 Chronic kidney disease, stage 3 unspecified; E11.22 Type 2 diabetes mellitus with diabetic chronic kidney disease; E11.40 Type 2 diabetes mellitus with diabetic neuropathy, unspecified; D63.1 Anemia in chronic kidney disease; B96.20 Unspecified Escherichia coli [E. coli] as the cause of diseases classified elsewhere; Z79.4 Long term (current) use of insulin; Z68.32 Body mass index [BMI] 32.0-32.9, adult; Z79.02 Long term (current) use of antithrombotics/antiplatelets; Z90.49 Acquired absence of other specified parts of digestive tract; Z79.899 Other long term (current) drug therapy; Z90.710 Acquired absence of both cervix and uterus; Z87.891 Personal history of nicotine dependence
CPT/HCPCS: 36415; 74177; 80053; 80069; 81001; 82947; 84145; 85025; 85610; 85730; J1650; J2185; J2270; J2405; J7030; Q9967

== ENCOUNTER 2025-04-18 16:44 | Emergency (ER) | payer OTHER ==
[2025-04-18 17:23] LABS: Sqamous Epithelial <5 /HPF (None Seen); Urine Culture Reflex Order REFLEXED; Urine Microscopic Reflex YN ORDER UMIC
--- NOTE | 2025-04-18 17:25 | EDPHYS ---
Physician Documentation [facility] Name: Ester Akins Age: 65 yrs Sex: Female : 1960 Arrival Date: 04/18/2025 Time: 16:44 Bed 12 Private MD: ED Physician Burton Hernandez HPI: 04/18 16:56 This 65 yrs old Female presents to ER via Unassigned with complaints of Urinary Problem.rn 16:56 Patient sent here by Dr. Ly for cath UA and culture. Patient with recent events intern to hospital for ESBL UTI, completed IV antibiotics at home. Overall patient feels better without fever or chills or vomiting. They tried to get home health to get a cath specimen but was not able to. Sent here for cath and UA with culture, he states we do not have to wait on the results he will follow them up.. Historical: - PMHx: 17:20 Diabetes - IDDM; esophageal varices (Diabetes - IDDM); nh2 - Immunization history:: Adult Immunizations up to date. - Infectious Disease History:: Denies. - Family history:: not pertinent. - Social history:: Smoking status: unknown. - Hospitalizations: : The patient was recently seen at [facility]. ROS: 16:56 Constitutional: Negative for fever, chills, and weight loss, Cardiovascular: Negative rn for chest pain, palpitations, and edema, Respiratory: Negative for shortness of breath, cough, wheezing, and pleuritic chest pain, Abdomen/GI: Negative for abdominal pain, nausea, vomiting, diarrhea, and constipation, Back: Negative for injury and pain, : Negative for injury, bleeding, discharge, and swelling, MS/Extremity: Negative for injury and deformity, Skin: Negative for injury, rash, and discoloration, Neuro: Negative for headache, weakness, numbness, tingling, and seizure, Exam: 16:56 Constitutional: This is a well developed, well nourished patient who is awake, alert, rn and in no acute distress. Respiratory: No increased work of breathing, no retractions or nasal flaring. Neuro: Awake and alert, GCS 15 Vital Signs: 17:00 BP 123 / 67; Pulse 70; Resp 18; Temp 98.7(O); Pulse Ox 100% ; Weight 92.99 kg; Height 5 nh2 ft. 8 in. ; 17:00 Body Mass Index 31.17 (92.99 kg, 172.72 cm) nh2 MDM: 16:49 Medical Screening Exam initiated rn 17:27 Differential Diagnosis UTI, colonization. Data reviewed: vital signs, nurses notes, chemical lab technician test result(s), urinalysis, and as a result, I will discharge patient. Counseling: I had a detailed discussion with the patient and/or guardian regarding the historical points, exam findings, and any diagnostic results supporting the discharge/admit diagnosis, lab results, the need for outpatient follow up, to return to the emergency department if symptoms worsen or persist or if there are any questions or concerns that arise at home. Special discussion: I discussed with the patient/guardian in detail that at this point there is no indication for admission to the hospital. It is understood, however, that if the symptoms persist or worsen the patient needs to return immediately for re-evaluation. Based on the history and exam findings, there is no indication for further emergent testing or inpatient evaluation. I discussed with the patient/guardian the need to see the primary care provider for further evaluation of the symptoms. ED course: UA results sent to Dr. Ly, he will follow-up urine culture. Patient discharged. 04/18 16:48 Order name: UA Rfx Binu Cult if indicated; Complete Time: 17:24 rn Administered Medications: No medications were administered Disposition Summary: 04/18/25 17:25 Discharge Ordered Notes: Location: Home nh2 Condition: Stable nh2 Diagnosis - UTI/ Urinary tract infection, site not specified nh2 Forms: - Medication Reconciliation Form nh2 - Antibiotic Education nh2 - Prescription Opioid Use nh2 - Patient Portal Instructions nh2 - Leadership Thank You Letter nh2 Signatures: Dispatcher [employer] Burton Johansen MD MD rn Babak Kirkland Jr RN RN nh2
--- NOTE | 2025-04-18 17:25 | ER ---
Nurse's Notes [facility] Name: Ester Akins Age: 65 yrs Sex: Female : 1960 Arrival Date: 04/18/2025 Time: 16:44 Bed 12 Private MD: Diagnosis: UTI/ Urinary tract infection, site not specified Presentation: 04/18 17:00 Chief complaint: Patient states: reports being sent by geography instructor to obtain urine nh2 specimen via straight cath. Has had chronic UTI since October. Coronavirus screen: At this time, the client does not indicate any symptoms associated with coronavirus-19. Ebola Screen: Patient denies travel to an Ebola-affected area in the 21 days before illness onset. No symptoms or risks identified at this time. Initial Sepsis Screen: Does the patient meet any 2 criteria? No. Patient's initial sepsis screen is negative. Does the patient have a suspected source of infection? No. Patient's initial sepsis screen is negative. Risk Assessment: Do you want to hurt yourself or someone else? Patient reports no desire to harm self or others. Onset of symptoms was October 23, 2024. 17:00 Method Of Arrival: Ambulatory nh2 17:00 Acuity: DEDRA 5 nh2 Triage Assessment: 17:00 General: Appears in no apparent distress. Behavior is calm, cooperative, appropriate nh2 for age. Pain: Denies pain. EENT: No signs and/or symptoms were reported regarding the EENT system. Neuro: Level of Consciousness is awake, alert, obeys commands, Oriented to person, place, time, situation, Appropriate for age. Cardiovascular: Denies chest pain, Patient's skin is warm and dry. Respiratory: Airway is patent Trachea midline Respiratory effort is even, unlabored, Respiratory pattern is regular, symmetrical, Denies cough, shortness of breath. 17:00 GI: Abdomen is round non-distended, Patient currently denies nausea, vomiting. : nh2 Reports not having UTI symptoms but was sent by geography instructor to obtain a clean specimen via straight catheter Denies burning with urination, incontinence, urinary frequency. Derm: No signs and/or symptoms reported regarding the dermatologic system. Musculoskeletal: Circulation, motion, and sensation intact. Range of motion: intact in all extremities. Historical: - PMHx: 17:20 Diabetes - IDDM; esophageal varices (Diabetes - IDDM); nh2 - Immunization history:: Adult Immunizations up to date. - Infectious Disease History:: Denies. - Family history:: not pertinent. - Social history:: Smoking status: unknown. - Hospitalizations: : The patient was recently seen at [facility]. Screenin:23 [facility] ED Fall Risk Assessment (Adult) History of falling in the last 3 months, nh2 including since admission No falls in past 3 months (0 pts) Confusion or Disorientation No (0 pts) Intoxicated or Sedated No (0 pts) Impaired Gait No (0 pts) Mobility Assist Device Used No (0 pt) Altered Elimination No (0 pt) Score/Fall Risk Level 0 - 2 = Low Risk Oriented to surroundings, Maintained a safe environment, Educated pt \T\ family on fall prevention, incl call for assistance when getting out of bed, Assessed \T\ reinforced patient's understanding of fall precautions. Abuse screen: Denies threats or abuse. Denies injuries from another. Nutritional screening: No deficits noted. Tuberculosis screening: No symptoms or risk factors identified. Assessment: 17:23 Reassessment: see triage. nh2 Vital Signs: 17:00 BP 123 / 67; Pulse 70; Resp 18; Temp 98.7(O); Pulse Ox 100% ; Weight 92.99 kg; Height 5 nh2 ft. 8 in. ; 17:00 Body Mass Index 31.17 (92.99 kg, 172.72 cm) nh2 ED Course: 16:46 Patient arrived in ED. mr 16:47 Babak Kirkland Jr, RN is Primary Nurse. nh2 16:48 Burton Hernandez MD is Attending Physician. rn 17:00 Arm band placed on right wrist. nh2 17:15 Straight cath inserted, using sterile technique, 16 Fr. Specimen obtained. Returned nh2 elie urine. Patient tolerated well. 17:19 Triage completed. nh2 17:23 Patient has correct armband on for positive identification. Bed in low position. Call nh2 light in reach. Side rails up X 1. Provided Education on: using call light for assistance. 17:23 No provider procedures requiring assistance completed. Patient did not have IV access nh2 during this emergency room visit. Administered Medications: No medications were administered Medication: 17:23 VIS not applicable for this client. nh2 Outcome: 17:24 Discharged to home ambulatory, nh2 17:24 Condition: good 17:24 Discharge instructions given to patient, Instructed on discharge instructions, follow up and referral plans. Demonstrated understanding of instructions, follow-up care, 17:25 Discharge ordered by . blayne 17:25 Patient left the ED. nh2 Addendum: 04/22/2025 09:13 Addendum: Culture Results: Positive urine culture. pt was sent to ER by Dr Guerrero for b d a urine culture, faxed positive results to his office at [phone]. Signatures: Winifred Hickman Mary, [facility] Burotn Powell MD MD rn Babak Kirkland Jr, RN RN nh2
[2025-04-18 17:34] VITALS: BP 123/67; TEMP 98.7; O2SAT 100
== END 2025-04-18 17:25 | disposition home or self-care (01) ==
LOC: ER 16:44
DX: N39.0 Urinary tract infection, site not specified (principal)
CPT/HCPCS: 51702; 81001; 87077; 87086; 87088; 87186; 99284